=== PATIENT | male | born 1980 | race Caucasian/White ===

== ENCOUNTER 2016-11-02 12:19 | Observation (INO) | payer OTHER ==
[2016-11-02] MEDS ORDERED: Sodium Chloride 0.9% 1000 ML 1,000 ML IV SCH (12:30)
[2016-11-02] MEDS ORDERED: Sodium Chloride 0.9% 1000 ML 1,000 ML ONE (12:37)
[2016-11-02 12:44] LABS: BASOPHIL % 0.4 % (0.0-0.4); Eosinophil % 3.7 % (0.00-5.0); Granulocytes % 39.3 % (36.0-66.0); Lymphocytes % 45.1 % (24.0-44.0); Mean Cell Volume 88.7 fl (78-100); Mean Corpuscular Hemoglobin 30.1 pg (26-32); Monocytes % 11.5 % (0.0-12.0); Platelet Count 216 K/mm3 (150-450); Red Blood Count 5.22 M/mm3 (4.1-5.6); Red Cell Distribution Width 14.7 % (11.5-14.0)
--- NOTE | 2016-11-02 12:44 | XRAY ---
Indication: Chest pain and palpitations. Elevated blood pressure. Comparison: October 13, 2016 Portable apical lordotic chest again demonstrates normal heart, lungs, and bony thorax.
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
[2016-11-02 13:07] LABS: INR 0.89 (0.8-3.0)
[2016-11-02 13:09] LABS: ALBUMIN 3.7 g/dL (3.4-5.0); ALKALINE PHOSPHATASE 84 U/L (46-116); ANION GAP 14.2 MEQ/L (5-15); BILIRUBIN,TOTAL 0.5 mg/dL (0.2-1.0); BLOOD UREA NITROGEN 12 mg/dL (9-20); CHLORIDE 106 mEq/L (98-107); Carbon Dioxide 25.1 mEq/L (21-32); Glucose 168 MG/DL (70-110); MAGNESIUM 1.9 mg/dL (1.8-2.4); Potassium 3.9 mEq/L (3.5-5.1); SGOT/AST 35 U/L (15-37); SGPT/ALT 102 U/L (12-78); SODIUM 141 mEq/L (136-145); Total Protein 7.4 gm/dL (6.4-8.2)
[2016-11-02 13:10] LABS: PTT 36.1 SECONDS (24.1-36.1)
[2016-11-02] MEDS ORDERED: Lopressor 25MG Tab PO ONE (13:55)
[2016-11-02] MEDS ORDERED: Lopressor 25MG Tab ONE (14:02)
[2016-11-02] MEDS ORDERED: Zofran 4 MG/2 ML VIAL IV PRN (14:29)
[2016-11-02] MEDS ORDERED: MILK OF MAGNESIA 30 ML PO PRN (14:29)
[2016-11-02] MEDS ORDERED: Nitrostat 0.4 MG Tablet SL PRN (14:29)
[2016-11-02] MEDS ORDERED: MAALOX ES 30 ML UNIT DOSE PO PRN (14:29)
[2016-11-02] MEDS ORDERED: TYLENOL 325 MG PO PRN (14:29)
[2016-11-02] MEDS ORDERED: Senokot-S Tablet PO PRN (14:29)
[2016-11-02] MEDS ORDERED: PHARMACY DOSING REQUEST MC ONE (15:30)
[2016-11-02] MEDS ORDERED: DILTIAZEM 125 MG/25 ML IV SCH (15:45)
[2016-11-02] MEDS ORDERED: CARDIZEM DRIP 100 MG/100 ML D5W 100 ML IV SCH (15:45)
[2016-11-02 19:23] LABS: TROPONIN 0.019 ng/ml (0.000-0.056)
[2016-11-02] MEDS: Betapace 80 MG PO SCH ×2 (20:10→20:26)
[2016-11-02] MEDS ORDERED: Lopressor 25MG Tab PO SCH (22:00)
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
[2016-11-03] MEDS ORDERED: Ventolin Hfa MDI IH PRN (08:31)
[2016-11-03] MEDS ORDERED: PROVENTIL COMMON CANISTER IH PRN (08:32)
--- NOTE | 2016-11-03 08:45 | HP ---
HISTORY OF PRESENT ILLNESS: This is a 36 year-old patient of Dr. Carroll'marc who presented to the emergency department with chest pain and a high heart rate. The patient reports he was sitting at his computer when he developed chest pain and looked down at this shirt and could see his heart beating through his shirt. He then looked at his heart monitor on fitness band and it said his pulse was 130. He then called a friend to come over with a blood pressure machine and they checked his blood pressure and it was 202/165 so they decided to call the ambulance. He reports that they gave him two Nitro in the ambulance and this helped with his chest pain. He states two and a half weeks ago when he tried to donate plasma his heart rate was greater than 100 and so he was deferred for donation. He states he went to the emergency room after this and was told that he was dehydrated although he reports he drank 2 gallons of fluid the day before. The patient denies any chest pain now. He said he never had a history of coronary artery disease and never had to have a stress test on his heart. REVIEW OF SYSTEMS: He denies any nausea, vomiting. He has had a cough which he reports is normal for him. He denies any fever, no constipation. He reports he has watery diarrhea all the time and had colonoscopy that was normal. He denies any difficulty urinating and no headache. He reports his blood pressure was high in the clinic recently and Dr. Carroll was following up on this and considering starting blood pressure medicine. PAST MEDICAL HISTORY: Chronic obstructive pulmonary disease. PAST SURGICAL HISTORY: Bilateral carpal tunnel syndrome. [place] tooth extracted. MEDICATIONS: Please see the home medication list. ALLERGIES: VENOM OF HONEY BEE. SOCIAL HISTORY: He reports that he has smoked one and a half to two packs per day since he was [age] years old and that his last cigarette was 10/25/2016. He rarely drinks alcohol. He reports he last drank any alcohol three weeks ago. He denies any illicit drug use. He lives with his girlfriend and children. FAMILY HISTORY: His mother is and from congestive heart failure and kidney problems when she was 57 or 58 years old. His dad is living and his history is unknown. PHYSICAL EXAMINATION: VITAL SIGNS: Temperature current 97.4F, temperature max 97.8F, heart rate 67 to 86, respiratory rate 15 to 17, blood pressure 105 to 134 over 74 to 90. Oxygen saturation 92 to 96% on room air. GENERAL: The patient is a pleasant talkative man lying in bed in no acute distress. CVS: Irregularly irregular rhythm with a normal rate. No murmurs, gallops or rubs appreciated. CHEST: Distant breath sounds throughout that are equal. No crackles or wheezes. ABDOMEN: Soft, nontender, nondistended with normal bowel sounds. EXTREMITIES: No clubbing, cyanosis or edema. SKIN: Warm, dry and intact. LABORATORY DATA AND TESTS: CBC within normal limits. Glucose 168. Hemoglobin A1C 6.2. Serial troponins have been negative. ALT 102. TSH normal at 1.4. Urine tox negative. Chest x-ray was read as normal. ASSESSMENT AND PLAN: 1) ATRIAL FIBRILLATION WITH RAPID VENTRICULAR RESPONSE INITIALLY IN THE EMERGENCY DEPARTMENT. He was admitted to Med/Surg. After being started on metoprolol the nurses noted his heart rate went up to 130 and so he was transferred to the ICU to be placed on Cardizem drip. A medical technologist had already been consulted from the emergency room and was seeing the patient shortly after I saw him. It looks like he ordered Sotalol and stopped the Cardizem drip. I defer any anticoagulation to the medical technologist as he is seeing the patient. 2) CHRONIC OBSTRUCTIVE PULMONARY DISEASE: Continue with his home medication. 3) TOBACCO ABUSE: The patient had just quit smoking and the patient was congratulated on this.
[2016-11-03] MEDS: Ecotrin 325 MG PO SCH (09:04)
[2016-11-03] MEDS: Betapace 80 MG PO SCH ×2 (09:04→21:46)
[2016-11-03] MEDS ORDERED: Spiriva 18 Mcg/Cap Inhaler IH SCH (10:00)
--- NOTE | 2016-11-03 11:19 | ECHO ---
Transthoracic echocardiographic examination and color Doppler was done on 11/02/2016. INDICATION: Chest pain, atrial fibrillation. IMPRESSION: 1) NO REGIONAL WALL MOTION ABNORMALITY. ESTIMATED GLOBAL LEFT VENTRICULAR EJECTION FRACTION OF AROUND 50 TO 60%. 2) TRACE TRICUSPID REGURGITATION. RIGHT VENTRICULAR SYSTOLIC PRESSURE OF 26 MM OF MERCURY. The left ventricle is visualized and demonstrated adequate contractility of all the segments with and estimated global left ventricular ejection fraction between 50 and 60%. Left ventricular thickness is normal. The mitral valve is seen and this opens adequately. No significant mitral regurgitation is seen. Left atrium is normal. The aortic valve opens adequately. Right side chambers are normal. There is trace tricuspid regurgitation. Right ventricular systolic pressure of 26 mm of Mercury.
--- NOTE | 2016-11-03 14:53 | PCM.NOTE ---
Date and Time: 11/03/16 8707 Subjective Assessment: He reports that he has some chest pain overnight that lasted 20-30 minutes and then went away. He is feeling fine now. His nurse notes that he converted to sinus rhythm around 7:[address] Crook, code and test clerk, saw him last night and changed him to sotolol and stopped the cardizem drip. - Review of Systems Constitutional: No Symptoms Eyes: No Symptoms Ears, Nose, & Throat: No Symptoms Respiratory: No Symptoms Cardiac: No Symptoms Abdominal/Gastrointestinal: No Symptoms Genitourinary Symptoms: No Symptoms Musculoskeletal: No Symptoms Skin: No Symptoms Neurological: No Symptoms Objective Exam General Appearance: no apparent distress, No anxiety Neurologic Exam: alert, cooperative Skin Exam: normal color, warm, dry, No rash Respiratory Exam: normal breath sounds, lungs clear, No crackles/rales, No rhonchi, No wheezing Cardiovascular Exam: regular rate/rhythm, normal heart sounds, No friction rub, No gallop, No tachycardia Gastrointestinal/Abdomen Exam: soft, normal bowel sounds, No tenderness, No distention, No mass, No guarding Extremity Exam: other (no c/c/e) OBJECTIVE DATA Vital Signs: Vital Signs - 24 hr Temp Pulse Resp BP Pulse Ox 11/03/16 10:48 97.9 F 65 17 116/82 94 L 11/03/16 07:41 68 11/03/16 07:00 97.9 F 61 17 115/79 94 L 11/03/16 06:00 88 20 93/73 94 L 11/03/16 05:00 106 H 16 106/76 94 L 11/03/16 04:00 93 H 11 L 105/73 95 11/03/16 03:00 86 15 123/75 93 L 11/03/16 02:00 89 16 119/81 11/03/16 00:54 87 15 108/77 96 11/02/16 23:48 97.9 F 79 16 114/79 95 11/02/16 22:00 86 17 126/90 94 L 11/02/16 21:00 86 17 122/78 92 L 11/02/16 20:00 97.4 F 84 17 134/83 95 11/02/16 18:51 97.8 F 78 15 105/74 96 11/02/16 18:00 83 15 109/77 96 11/02/16 16:56 97.8 F 68 15 101/80 98 11/02/16 16:00 79 15 112/80 97 Pain Assessment - Last Documented Pain Scale Used FLACC Intake and Output: Intake & Output 11/01/16 11/02/16 11/03/16 11/04/16 06:59 06:59 06:59 06:59 Intake Total 1942 720 Output Total 2450 400 Balance -508 320 Weight 104.326 kg Lab Results: Lab Results-Last 24 Hours 11/02/16 11/02/16 11/02/16 Range/Units 15:45 18:39 21:39 Troponin I 0.019 0.019 0.018 (0.000-0.056) ng/ml Triglycerides (30-200) mg/dL Cholesterol (100-200) mg/dL LDL Cholesterol (5-99) mg/dL HDL Cholesterol (35-60) mg/dL Heart Disease Risk Ratio TSH 3rd Generation 1.401 (0.358-3.740) mIU/L 11/03/16 11/03/16 Range/Units 00:45 05:25 Troponin I 0.017 (0.000-0.056) ng/ml Triglycerides 402 H (30-200) mg/dL Cholesterol 208 H (100-200) mg/dL LDL Cholesterol 122 H (5-99) mg/dL HDL Cholesterol 27 L (35-60) mg/dL Heart Disease Risk Ratio 7.7 TSH 3rd Generation (0.358-3.740) mIU/L Radiology Exams: Impressions Echocardiogram Ultrasound 11/02/16 14:29 IMPRESSION: 1) NO REGIONAL WALL MOTION ABNORMALITY. ESTIMATED GLOBAL LEFT VENTRICULAR EJECTION FRACTION OF AROUND 50 TO 60%. 2) TRACE TRICUSPID REGURGITATION. RIGHT VENTRICULAR SYSTOLIC PRESSURE OF 26 MM OF MERCURY. Multi-Disciplinary Progress Notes: Multi-Disciplinary Progress Notes 11/03/16 09:08 Respiratory Note by Angela Mejia pt states he has spiriva At home but does not use. also rairly use alb mdi Initialized on 11/03/16 09:08 - END OF NOTE Assessment/Plan (1) Atrial fibrillation Current Visit: Yes Status: Acute Qualifiers: Atrial fibrillation type: paroxysmal Qualified Code(s): I48.0 - Paroxysmal atrial fibrillation Assessment & Plan: He has converted to sinus rhythm. Continue with close monitoring and continue sotalol per Dr. Crook. He has also placed him on an aspirin for anticogulation. Code(s): I48.91 - UNSPECIFIED ATRIAL FIBRILLATION (2) COPD (chronic obstructive pulmonary disease) Current Visit: Yes Status: Acute Assessment & Plan: Currently stable on his home medications. (3) Tobacco abuse Current Visit: Yes Status: Acute Assessment & Plan: He has recently quit smoking. Code(s): Z72.0 - TOBACCO USE (4) Hyperlipidemia Current Visit: Yes Status: Acute Assessment & Plan: Will plan to start a cholesterol medication to help control high triglycerides and high LDL. Code(s): E78.5 - HYPERLIPIDEMIA, UNSPECIFIED
[2016-11-03] MEDS ORDERED: ZOCOR 20MG PO SCH (22:00)
[2016-11-03] MEDS ORDERED: LIPITOR 40MG PO SCH (22:00)
[2016-11-04 05:42] LABS: BASOPHIL % 0.3 % (0.0-0.4); Lymphocytes % 34.9 % (24.0-44.0); Mean Cell Volume 88.7 fl (78-100); Mean Corpuscular Hemoglobin 29.9 pg (26-32); Mean Platelet Volume 9.1 fl (6-9.5); Monocytes % 9.8 % (0.0-12.0); Platelet Count 222 K/mm3 (150-450); Red Blood Count 5.21 M/mm3 (4.1-5.6); Red Cell Distribution Width 14.3 % (11.5-14.0)
[2016-11-04 06:02] LABS: ANION GAP 14.2 MEQ/L (5-15); BLOOD UREA NITROGEN 13 mg/dL (9-20); CHLORIDE 105 mEq/L (98-107); Carbon Dioxide 24.4 mEq/L (21-32); Glucose 204 MG/DL (70-110); SODIUM 140 mEq/L (136-145)
[2016-11-04] MEDS: Ecotrin 325 MG PO SCH (09:30)
[2016-11-04] MEDS: Betapace 80 MG PO SCH ×2 (09:31→19:07)
--- NOTE | 2016-11-04 10:07 | PCM.NOTE ---
Date and Time: 11/04/16 1003 Subjective Assessment: He reports he feels well. He denies any chest pain. He has been eating well. He voices understanding about trying to watch the sugars in his food as he does report that he eats a lot of rice and pasta at home and his blood glucose was high this AM although his residential blood glucose was normal. - Review of Systems Constitutional: No Symptoms Eyes: No Symptoms Ears, Nose, & Throat: No Symptoms Respiratory: No Symptoms Cardiac: No Symptoms Abdominal/Gastrointestinal: No Symptoms Genitourinary Symptoms: No Symptoms Musculoskeletal: No Symptoms Skin: No Symptoms Objective Exam General Appearance: no apparent distress, alert Neurologic Exam: alert, cooperative, normal mood/affect Skin Exam: normal color, warm, dry, No rash Respiratory Exam: normal breath sounds, lungs clear, No crackles/rales, No rhonchi, No wheezing Cardiovascular Exam: regular rate/rhythm, normal heart sounds, No murmur, No friction rub, No gallop Gastrointestinal/Abdomen Exam: soft, normal bowel sounds, No tenderness, No distention, No mass Extremity Exam: other (no c/c/e) OBJECTIVE DATA Vital Signs: Vital Signs - 24 hr Temp Pulse Resp BP Pulse Ox 11/04/16 07:36 98.0 F 59 L 19 132/81 97 11/04/16 03:49 97.8 F 72 18 137/79 96 11/04/16 00:00 98.2 F 78 17 139/71 96 11/03/16 18:47 97.8 F 74 18 120/67 95 11/03/16 15:00 63 13 106/80 95 11/03/16 10:48 97.9 F 65 17 116/82 94 L Pain Assessment - Last Documented Pain Scale Used 0-10 Pain Scale,FLACC Intake and Output: Intake & Output 11/02/16 11/03/16 11/04/16 11/05/16 06:59 06:59 06:59 06:59 Intake Total 1942 1500 Output Total 2450 1300 Balance -508 200 Weight 104.326 kg 106.594 kg Lab Results: Lab Results-Last 24 Hours 11/04/16 11/04/16 Range/Units 05:20 05:20 WBC 10.0 (4.0-10.5) K/mm3 RBC 5.21 (4.1-5.6) M/mm3 Hgb 15.6 (12.5-18.0) gm/dl Hct 46.2 (42-50) % MCV 88.7 (78-100) fl MCH 29.9 (26-32) pg MCHC 33.8 (32-36) g/dl RDW 14.3 H (11.5-14.0) % Plt Count 222 (150-450) K/mm3 MPV 9.1 (6-9.5) fl Gran % 51.0 (36.0-66.0) % Lymphocytes % 34.9 (24.0-44.0) % Monocytes % 9.8 (0.0-12.0) % Eosinophils % 4.0 (0.00-5.0) % Basophils % 0.3 (0.0-0.4) % Basophils # 0.03 (0-0.4) Sodium 140 (136-145) mEq/L Potassium 4.0 (3.5-5.1) mEq/L Chloride 105 (98-107) mEq/L Carbon Dioxide 24.4 (21-32) mEq/L Anion Gap 14.2 (5-15) MEQ/L BUN 13 (9-20) mg/dL Creatinine 0.96 (0.55-1.30) mg/dl Estimated GFR > 60 ML/MIN Glucose 204 H (70-110) MG/DL Calcium 8.8 (8.5-10.1) mg/dL Radiology Exams: Impressions Echocardiogram Ultrasound 11/02/16 14:29 IMPRESSION: 1) NO REGIONAL WALL MOTION ABNORMALITY. ESTIMATED GLOBAL LEFT VENTRICULAR EJECTION FRACTION OF AROUND 50 TO 60%. 2) TRACE TRICUSPID REGURGITATION. RIGHT VENTRICULAR SYSTOLIC PRESSURE OF 26 MM OF MERCURY. Assessment/Plan (1) Paroxysmal atrial fibrillation Current Visit: Yes Status: Acute Assessment & Plan: Continue sotalol per Dr. Crook's order. He will be the one to prescribe this when he is discharged. Continue aspirin 325 mg po daily for anticoagulation. Code(s): I48.0 - PAROXYSMAL ATRIAL FIBRILLATION (2) COPD (chronic obstructive pulmonary disease) Current Visit: Yes Status: Acute Assessment & Plan: Stable on home medications. (3) Tobacco abuse Current Visit: Yes Status: Acute Code(s): Z72.0 - TOBACCO USE (4) Hyperlipidemia Current Visit: Yes Status: Acute Assessment & Plan: Statin was started yesterday. Code(s): E78.5 - HYPERLIPIDEMIA, UNSPECIFIED (5) Hyperglycemia Current Visit: Yes Status: Acute Assessment & Plan: Discussed diet changes and he can follow up with Dr. Carroll. Hgb A1C was normal. Code(s): R73.9 - HYPERGLYCEMIA, UNSPECIFIED
[2016-11-04 15:55] VITALS: BP 124/69; PULSE 62; O2SAT 95
== END 2016-11-04 19:15 | disposition home or self-care (01) ==
LOC: ED 12:19 → MED SURG 14:27 → ICU 15:37 → MED SURG 11-03 17:11
PROVIDERS: ADMIT Family Medicine; ATTEND Family Medicine
DX: I48.0 Paroxysmal atrial fibrillation (principal); J44.1 Chronic obstructive pulmonary disease with (acute) exacerbation; E78.5 Hyperlipidemia, unspecified; R73.9 Hyperglycemia, unspecified; Z72.0 Tobacco use
CPT/HCPCS: 36000; 36415; 71010; 80048; 80053; 80061; 80307; 83036; 83721; 83735; 84443; 84484; 85025; 85610; 85730; 93005; 93041; 93268; 93306; 96360; 99284; G0378

== ENCOUNTER 2016-12-13 10:12 | Day surgery (SDC) | payer OTHER ==
--- NOTE | 2016-12-11 14:27 | HP ---
HISTORY OF PRESENT ILLNESS: The patient is a 36-year-old, for 6 months has had some drainage, pain at times, pilonidal area. There is some induration, some godinez, felt he had infected pilonidal cyst disease. PAST MEDICAL HISTORY: Heart disease, COPD. MEDICATIONS: Spiriva, Proventil. PAST SURGICAL HISTORY: Carpal tunnel and tooth extracted in the past. FAMILY HISTORY: Heart disease, diabetes. ALLERGIES: No known drug allergies SOCIAL HISTORY: He quit smoking 2012. Denies alcohol abuse. REVIEW OF SYSTEMS: Ten systems reviewed, pertinent for the admission assessment. No chest pains or palpitations. Other systems negative or noncontributory as noted above, or per pre-admission questionnaire. PHYSICAL EXAMINATION: GENERAL: No acute distress. HEENT: Sclerae nonicteric. NECK: No JVD. CHEST: Normal excursions, Nonlabored breathing. CARDIOVASCULAR: Regular rate and rhythm. ABDOMEN: Soft. No peritoneal signs. EXTREMITIES: No edema. NEUROLOGICAL: Alert, moving extremities grossly symmetrically, no gross motor deficits noted. In the pilonidal area there are godinez, some induration on either side consistent with infected pilonidal cyst disease. IMPRESSION: Infected pilonidal cyst disease, felt he would benefit from wide excision, possible packing, possible flap pending operative findings. 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 5% risk of nonhealing, 5% risk of slow healing, but 90% healing in 8 to 12 weeks if requires packing. He understands that there is at least a 20% risk of re-occurrence down the road, the importance of keeping all hair away from wound, and if left open and packing, to pack to the bottom of the incision at least on a daily basis, as well as minimizing aggressive activity and avoid any prolonged sitting, laying, or pressure on the wound postoperatively. He understands, agrees to the plan of procedure. We will proceed with wide excision pilonidal cyst, also packing, possible flap as an outpatient.
[~2016-12-13 10:12] MED LIST: BICITRA 30 ML CUP PO ONE; CEFAZOLIN 2 GM-D5W BAG IV ONE; DIPRIVAN 200 MG/20 ML IV ONE; Decadron 4 MG INJ IV ONE; Lactated Ringers 1,000 ML IV ONE; Pepcid 20 MG VIAL IV ONE; Quelicin Fliptop 200 MG/10 ML IJ ONE; SUBLIMAZE 100 MCG/2 ML IV ONE; Sensorcaine 0.25% 10 ML ONE; TORAdol 30 mg Injection IJ ONE; Zemuron 100 MG/10 ML IJ ONE; Zofran 4 MG/2 ML VIAL IV ONE
[2016-12-13] MEDS ORDERED: Lactated Ringers 1,000 ML IV ONE (10:16)
[2016-12-13] MEDS ORDERED: Pepcid 20 MG VIAL IV ONE (10:16)
[2016-12-13] MEDS ORDERED: BICITRA 30 ML CUP ONE (10:16)
[2016-12-13] MEDS ORDERED: Lactated Ringers 1,000 ML IV SCH (10:30)
[2016-12-13 11:24] LABS: ANION GAP 13.8 MEQ/L (5-15); BLOOD UREA NITROGEN 12 mg/dL (9-20); CHLORIDE 107 mEq/L (98-107); Carbon Dioxide 24.1 mEq/L (21-32); Glucose 140 MG/DL (70-110); Potassium 3.8 mEq/L (3.5-5.1); SODIUM 141 mEq/L (136-145)
[2016-12-13 15:18] VITALS: O2SAT 98
[2016-12-13 15:22] VITALS: BP 120/57; PULSE 18
--- NOTE | 2016-12-14 09:10 | OP ---
SURGERY DATE/TIME: 12/13/2016 1213 PREOPERATIVE DIAGNOSIS: Infected pilonidal cyst disease. POSTOPERATIVE DIAGNOSIS: Infected pilonidal cyst disease. PROCEDURE: Wide excision infected pilonidal cyst disease down to viable tissue. SURGEON: Dr. Richard Boone. ANESTHESIA: General. ESTIMATED BLOOD LOSS: Minimal. INDICATIONS: As noted above. Risks and benefits explained in detail and not limited to and consent obtained. The details of the planned procedure had been discussed preoperatively and that would very likely end up packing the wound. DESCRIPTION OF PROCEDURE AND FINDINGS: General anesthesia was induced. He was placed in the prone position per anesthesia and OR staff. The pilonidal area prepped and draped in usual sterile fashion. He had indurated inflamed area off to the left. It had pits in the midline. Dissecting out around these staying close to the edge dissection was carried. This required going down to the underlying fascia the sacral fascia and out towards the subcu around these areas. It was felt that there was too much inflammation and infection to warrant safe closure. It was felt it would be safer to go ahead and pack this or let this heal by secondary intent given his body habitus and wound. Good hemostasis noted. The wound is irrigated out. It was packed in normal saline wet to dry. The patient tolerated the procedure well. There were no immediate complications. Findings were discussed with the friend out in the waiting area and holding area along with the patient. He was returned back to outpatient area.
== END 2016-12-13 14:25 | disposition home or self-care (01) ==
LOC: SDC 10:12
PROVIDERS: ATTEND Surgery
PROC: 0JB90ZZ Excision of Buttock Subcutaneous Tissue and Fascia, Open Approach (ICD-10-PCS; principal; 2016-12-13)
DX: L05.91 Pilonidal cyst without abscess (principal); J44.9 Chronic obstructive pulmonary disease, unspecified; I51.9 Heart disease, unspecified; Z79.899 Other long term (current) drug therapy
CPT/HCPCS: 00300; 36415; 80048; 88304; J0330; J0690; J1100; J1885; J2405; J2704; J3010

== ENCOUNTER 2017-05-12 18:35 | Emergency (ER) | payer OTHER, SELFPAY ==
[2017-05-12] MEDS ORDERED: MOTRIN 600 MG PO ONE (18:42)
--- NOTE | 2017-05-12 18:48 | ERPHSYRPT ---
- History of Present Illness Time Seen by Provider: 05/12/17 18:36 Source: patient Exam Limitations: no limitations Physician History: patient with hx of cough x 3 days; productive yellow sputum; hx of copd and bronchitis; no fever; pain left chest only when coughs; chronic loose stools since childhood; no sore throat; no hemoptosis or sob; no leg pain; no travel; around one person with bronchitis; occasional N& V associated with coughing paroxysm quit smoking oct 2016 Timing/Duration: today (worse), yesterday (onset pain with cough), day(s) (3 onset), intermittent, gradual onset, worse Cough Quality/Degree: moderate, productive cough, sputum (yellow) Possible Cause: occasional episodes Modifying Factors: Improves With: coughing, deep breath Associated Symptoms: chest pain/soreness (left when coughs anterior), cough International travel in last 2 weeks: No Allergies/Adverse Reactions: venom-honey bee Allergy (Verified 05/12/17 18:44) Home Medications: Albuterol Sulfate [Albuterol Sulfate Hfa] 8.5 gm IH Q4H PRN PRN 10/13/16 [ History] Tiotropium [place] Inhaler [Spiriva 18 Mcg/Cap Inhaler] 1 ea IH DAILY [History] Rivaroxaban 10 mg Tablet [Xarelto 10 mg Tablet] 10 mg PO DAILY 12/13/16 [ History] Metformin HCl 500 mg [Glucophage 500 MG] 500 mg BID 05/12/17 [History] Hx Tetanus, Diphtheria Vaccination/Date Given: Yes Hx Influenza Vaccination/Date Given: Yes Hx Pneumococcal Vaccination/Date Given: No - Review of Systems Constitutional: No Symptoms Eyes: No Symptoms Ears, Nose, & Throat: No Symptoms Respiratory: Cough, No Dyspnea, No Wheezing Cardiac: Chest Pain (anterior left high when coughs), No Edema, No Syncope Abdominal/Gastrointestinal: Nausea (with coughing paroxysms), Vomiting (with coughing paroxysms), Diarrhea (chronic), No Abdominal Pain Genitourinary Symptoms: No Symptoms Musculoskeletal: No Symptoms Skin: No Symptoms Neurological: No Symptoms Psychological: No Symptoms Endocrine: No Symptoms Hematologic/Lymphatic: No Symptoms Immunological/Allergic: No Symptoms - Past Medical History Pertinent Past Medical History: Yes Neurological History: No Pertinent History ENT History: No Pertinent History Cardiac History: Arrhythmia, High Cholesterol, Hypertension, Peripheral Vascular Disease Respiratory History: COPD Endocrine Medical History: Diabetes Type II Musculoskeletal History: No Pertinent History GI Medical History: No Pertinent History History: No Pertinent History Psycho-Social History: Depression Male Reproductive Disorders: No Pertinent History Other Medical History: pilonidal cyst - Past Surgical History Past Surgical History: Yes Neuro Surgical History: No Pertinent History Cardiac: No Pertinent History Respiratory: No Pertinent History Gastrointestinal: No Pertinent History Genitourinary: No Pertinent History Musculoskeletal: Other Male Surgical History: No Pertinent History Other Surgical History: pt states he has had carpal tunnel surgery and tooth extractions.pilonidal cyst removed - Social History Smoking Status: Former smoker How long have you smoked: 29 Exposure to second hand smoke: No Alcohol Use: Socially Drug Use: none Patient Lives Alone: No Significant Family History: diabetes, hypertension - Nursing Vital Signs Nursing Vital Signs: Initial Vital Signs Temperature 98.0 F 05/12/17 18:38 Pulse Rate 100 H 05/12/17 18:38 Respiratory Rate 18 05/12/17 18:38 Blood Pressure 160/90 05/12/17 18:38 O2 Sat by Pulse Oximetry 96 05/12/17 18:38 Pain Scale Pain Intensity 0 - Physical Exam General Appearance: mild distress, alert Eye Exam: PERRL/EOMI, eyes nml inspection, No photophobia Ears, Nose, Throat Exam: normal ENT inspection, TMs normal, pharynx normal, moist mucous membranes, other (thick pnd) Neck Exam: normal inspection, non-tender, supple, full range of motion, No meningismus, No JVD Respiratory Exam: chest tenderness (anterior left high), airway intact, diminished breath sounds, No normal breath sounds (scattered coarse bronchovesicular BS throughout), No respiratory distress, No crackles/rales, No rhonchi, No wheezing, No pleural rub Cardiovascular Exam: regular rate/rhythm, normal heart sounds, normal peripheral pulses, tachycardia (100), capillary refill 2-3 sec, No murmur, No friction rub Gastrointestinal/Abdomen Exam: soft, normal bowel sounds, No tenderness, No guarding, No rebound, No organomegaly Rectal Exam: deferred Back Exam: normal inspection, normal range of motion, No CVA tenderness, No vertebral tenderness, No rash Extremity Exam: normal inspection, normal range of motion, No chetna's sign, No pedal edema Neurologic Exam: alert, oriented x 3, cooperative, 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 as tested, normal mood/affect, nml cerebellar function, nml station & gait Skin Exam: normal color, warm, dry, No rash, No petechiae, No cyanosis SpO2 Interpretation: normal SpO2: 96 Oxygen Delivery: Room Air - Course Nursing assessment & vital signs reviewed: Yes - Radiology Exams Chest X-ray Interpretation: Interpreted by me, Negative, No Pneumonia, No Pneumothorax , Nml Heart Size, No Infiltrates Ordered Tests: Active Orders 24 hr Category Date Time Status ACCUCHECK [Accucheck] STAT Care 05/12/17 18:48 Active Pulse Oximetry (ED) STAT Care 05/12/17 18:41 Active Re-Check Vital Signs STAT Care 05/12/17 18:41 Active CHEST 1 VIEW (PORTABLE) Stat Exams 05/12/17 18:42 Taken Medication Summary Discontinued Medications Generic Name Dose Route Start Last Admin Trade Name Freq PRN Reason Stop Dose Admin Ibuprofen 600 mg 05/12/17 18:42 05/12/17 18:50 Motrin 600 Mg PO 05/12/17 18:43 600 mg STAT ONE Administration Ibuprofen Confirm 05/12/17 18:49 Motrin 600 Mg Administered 05/12/17 18:50 Dose 600 mg .ROUTE .STK-MED ONE - Progress Progress: re-examined (after xr and meds) Air Movement: good Progress Note: 05/12/17 18:53 VS ok; Sats ok; will get cxr and give meds and recheck 05/12/17 19:03 rechecked; good pulse ox; discussed findings;treatment plan and instructions given 05/12/17 19:04 accucheck ok Blood Culture(s) Obtained: No Counseled pt/family regarding: diagnosis, need for follow-up, rad results - Departure Time of Disposition: 19:03 Departure Disposition: Home Clinical Impression: Hyperglycemia, COPD (chronic obstructive pulmonary disease), Acute bronchitis, Acute sinusitis Condition: Stable Critical Care Time: No Instructions: Chronic Obstructive Pulmonary Disease, Cough -- Adult Additional Instructions: clear fluid hydration; vaporizer; follow up lmd Follow-up with family doctor as directed. Call for appointment. Return if any problems. If you smoke please stop. Call or follow up with your family doctor for assistance if you need it to stop. Please wear your seatbelt when driving. Have a nice day. Thank you for allowing us to participate in your care today. :o) Dr Adrian Pace Prescriptions: Guaifenesin/Dextromethorphan [Robitussin Cough-Chest Dm Liq] 10 ml PO Q8H PRN PRN #8 oz PRN Reason: Cough Sulfamethoxazole/Trimethoprim [Bactrim Ds Tablet] 1 each PO BID #20 tablet
[2017-05-12] MEDS ORDERED: MOTRIN 600 MG ONE (18:49)
[2017-05-12 19:08] VITALS: O2SAT 96
[2017-05-12 19:18] VITALS: BP 140/90; PULSE 82
--- NOTE | 2017-05-13 08:28 | XRAY ---
Indication: Productive cough. Comparison: November 02, 2016. Portable chest hyperinflated and clear. Heart and mediastinal structures within normal limits. Bony thorax intact. Impression: Nonacute hyperinflated chest.
== END 2017-05-12 19:18 | disposition home or self-care (01) ==
LOC: ED 18:35
DX: R73.9 Hyperglycemia, unspecified (principal); J44.9 Chronic obstructive pulmonary disease, unspecified; J20.9 Acute bronchitis, unspecified; J01.90 Acute sinusitis, unspecified; R07.89 Other chest pain; R05 Cough
CPT/HCPCS: 71010; 82962; 99281; 99282; A9270-GY

== ENCOUNTER 2017-06-30 22:39 | Emergency (ER) | payer OTHER, SELFPAY ==
[2017-06-30] MEDS ORDERED: NORCO 5/325 MG PO ONE (22:54)
[2017-06-30] MEDS ORDERED: BACTRIM DS TABLET PO ONE ×2 (22:54→22:57)
[2017-06-30] MEDS ORDERED: NORCO 5/325 MG ONE (22:57)
--- NOTE | 2017-06-30 23:02 | ERPHSYRPT ---
- History of Present Illness Time Seen by Provider: 06/30/17 22:55 Source: patient Exam Limitations: no limitations Patient Subjective Stated Complaint: middle finger swelling since tuesday.. increasing today. no drainage. sates tried to pop it open but only got blood. Triage Nursing Assessment: noted swelling taround nail of middle finger of left hand.. + radial pulse denies injury. no drainage noted Physician History: This is a 37-year-old white male he arrives with complaint of swelling to his left third finger since 6 days. He states that he noticed swelling superior to the left nailbed on the third finger. Patient tried to drain the area himself by sticking a cauterized needle into the area but got no return Past medical history includes arrhythmia, hypercholesterolemia, high blood pressure,, COPD, diabetes, depression, pilonidal cyst Past surgical history includes carpal tunnel into the extraction. Patient does states he is on blood thinners Occurred: days ago (6 days) Quality: constant Severity of Pain-Max: mild Severity of Pain-Current: mild Extremities Pain Location: 3rd finger: left Modifying Factors: Improves With: nothing Associated Symptoms: none Allergies/Adverse Reactions: venom-honey bee Allergy (Verified 05/12/17 18:44) Home Medications: Albuterol Sulfate [Albuterol Sulfate Hfa] 8.5 gm IH Q4H PRN PRN 10/13/16 [ History] Tiotropium [place] Inhaler [Spiriva 18 Mcg/Cap Inhaler] 1 ea IH DAILY [History] Rivaroxaban 10 mg Tablet [Xarelto 10 mg Tablet] 10 mg PO DAILY 12/13/16 [ History] Metformin HCl 500 mg [Glucophage 500 MG] 500 mg BID 05/12/17 [History] Hx Tetanus, Diphtheria Vaccination/Date Given: Yes Hx Influenza Vaccination/Date Given: Yes Hx Pneumococcal Vaccination/Date Given: No Immunizations Up to Date: Yes - Review of Systems Constitutional: No Fever, No Chills Eyes: No Symptoms Ears, Nose, & Throat: No Symptoms Respiratory: No Cough, No Dyspnea Cardiac: No Chest Pain, No Edema, No Syncope Abdominal/Gastrointestinal: No Abdominal Pain, No Nausea, No Vomiting, No Diarrhea Genitourinary Symptoms: No Dysuria Musculoskeletal: Other (swelling and pain above the left third nail bed) Skin: Other (swelling above the left third nail bed) Neurological: No Dizziness, No Focal Weakness, No Sensory Changes Psychological: No Symptoms Endocrine: No Symptoms All Other Systems: Reviewed and Negative - Past Medical History Pertinent Past Medical History: Yes Neurological History: No Pertinent History ENT History: No Pertinent History Cardiac History: Arrhythmia, High Cholesterol, Hypertension, Peripheral Vascular Disease Respiratory History: COPD Endocrine Medical History: Diabetes Type II Musculoskeletal History: No Pertinent History GI Medical History: No Pertinent History History: No Pertinent History Psycho-Social History: Depression Male Reproductive Disorders: No Pertinent History Other Medical History: pilonidal cyst - Past Surgical History Past Surgical History: Yes Neuro Surgical History: No Pertinent History Cardiac: No Pertinent History Respiratory: No Pertinent History Gastrointestinal: No Pertinent History Genitourinary: No Pertinent History Musculoskeletal: Other Male Surgical History: No Pertinent History Other Surgical History: pt states he has had carpal tunnel surgery and tooth extractions.pilonidal cyst removed - Social History Smoking Status: Former smoker How long have you smoked: 29 Exposure to second hand smoke: No Alcohol Use: Socially Drug Use: none Patient Lives Alone: No Significant Family History: diabetes, hypertension - Nursing Vital Signs Nursing Vital Signs: Initial Vital Signs Temperature 98.1 F 06/30/17 22:42 Pulse Rate 84 06/30/17 22:42 Respiratory Rate 16 06/30/17 22:42 O2 Sat by Pulse Oximetry 98 06/30/17 22:42 Pain Scale Pain Intensity 7 - Physical Exam General Appearance: alert Eyes, Ears, Nose, Throat Exam: moist mucous membranes Neck Exam: non-tender, supple Cardiovascular/Respiratory Exam: chest non-tender, normal breath sounds, regular rate/rhythm, no respiratory distress Abdominal Exam: non-tender, No guarding Back Exam: normal inspection, No vertebral tenderness Shoulder Exam: normal inspection, non-tender, no evidence of injury, normal ROM Elbow/Forearm Exam: normal inspection, non-tender, no evidence of injury, normal ROM Wrist Exam: normal inspection, non-tender, no evidence of injury, normal ROM Hand Exam: No normal inspection (Full range of motion to both hands full range of motion to both fingers, left third finger with tenderness with paipation, area is not hot or erythematous) Neuro/Tendon Exam: normal sensation, normal motor functions Mental Status Exam: alert Skin Exam: other (edema and tenderness superior to left third nail bed, area is not erythematous or hot) SpO2 Interpretation: normal SpO2: 98 Oxygen Delivery: Room Air - Course Nursing assessment & vital signs reviewed: Yes Ordered Tests: Medication Summary Discontinued Medications Generic Name Dose Route Start Last Admin Trade Name Claudio PRN Reason Stop Dose Admin Hydrocodone Bitart/Acetaminophen 1 tab 06/30/17 22:54 06/30/17 23:01 [place] 5/325 Mg PO 06/30/17 22:55 1 tab SENT HOME W/ PATIENT ONE Administration Hydrocodone Bitart/Acetaminophen Confirm 06/30/17 22:57 [place] 5/325 Mg Administered 06/30/17 22:58 Dose 1 tab .ROUTE .STK-MED ONE Trimethoprim/Sulfamethoxazole 1 tab 06/30/17 22:54 06/30/17 23:00 Bactrim Ds Tablet PO 06/30/17 22:55 1 tab STAT ONE Administration Trimethoprim/Sulfamethoxazole Confirm 06/30/17 22:57 Bactrim Ds Tablet Administered 06/30/17 22:58 Dose 1 tab PO .STK-MED ONE - Progress Progress: improved Progress Note: 06/30/17 23:00 This is a 37-year-old white male with history of diabetes and arrhythmia who is on xaralto, He arrives with complaint of swelling and pain superior to his left third nail bed. He states he has had this for approximately 3 days he states he actually healed up a needle and tried to stick this into the area without drainage. On physical examination patient has edema and tenderness superior to the left third nail bed there is no erythema area is not hot. It appears the patient has a possible paronychia to the area, however the area is not hot or draining. The patient is up-to-date with his tetanus. Because of this patient's history of diabetes as well as being on anticoagulants. I will place this patient on Bactrim DS one orally twice a day for 10 days. Will write for pain medication. Will have patient follow-up with his family doctor. Will not attempt to lacerate the area at this time the area is not hot or erythematous he has already stuck a needle in the area. Patient will be recommended to follow-up either with his surgeon Dr. Paolo Peña or, his family doctor he is to call tomorrow morning 06/30/17 23:05 06/30/17 23:12 - Departure Time of Disposition: 23:02 Departure Disposition: Home Clinical Impression: Paronychia of finger of left hand Condition: Fair Critical Care Time: No Referrals: DENY LEZAMA [Primary Care Provider] - Additional Instructions: Return home. Bactrim DS one orally twice a day for 10 days. [place] one orally every 4-6 hours as needed for pain #6. Follow-up with your family doctor or Dr. Cruz/ [place] call tomorrow morning. Return for acute distress or for severe symptoms Prescriptions: Hydrocodone Bit/Acetaminophen [[place] 5/325Mg] 1 tab PO Q4-6HPRN PRN #6 tablet PRN Reason: Pain Smz/Tmp Ds Tablet [Bactrim Ds Tablet] 1 tab PO BID #20 tablet
[2017-06-30 23:17] VITALS: BP 158/94; PULSE 79; O2SAT 95
== END 2017-06-30 23:16 | disposition home or self-care (01) ==
LOC: ED 22:39
DX: L03.012 Cellulitis of left finger (principal)
CPT/HCPCS: 99283; A9270-GY

== ENCOUNTER 2017-07-24 03:50 | Emergency (ER) | payer OTHER ==
[2017-07-24] MEDS ORDERED: MOTRIN 400 MG PO ONE (04:08)
[2017-07-24] MEDS ORDERED: MOTRIN 400 MG ONE (04:11)
--- NOTE | 2017-07-24 04:22 | ERPHSYRPT ---
- History of Present Illness Time Seen by Provider: 07/24/17 04:01 Source: patient Patient Subjective Stated Complaint: pt states he fell while running and went down on his rt knee yesterday. Triage Nursing Assessment: pt alert and oriented, asnwers questions approp. respirations nonlabored with lungs cta. pt ambultory with limping gait noted. skin warm andd ry. tenderness and swelling noted to rt knee. no bruising or open areas to rt knee Physician History: CC: right knee pain Hx: 37 y/o patient of Dr Carroll on xarelto for afib. He was running yesterday and fell. He injured right knee. He has pain and swelling. No fever, chills, redness, nor warmth. He has some hydrocodone left over at home but did not use it. Drove self here. No prior knee injury or surgery. No other injuries. Lower Extremities Pain: knee: right Allergies/Adverse Reactions: venom-honey bee Allergy (Verified 07/24/17 04:14) Home Medications: Albuterol Sulfate [Albuterol Sulfate Hfa] 8.5 gm IH Q4H PRN PRN 10/13/16 [ History] Tiotropium [place] Inhaler [Spiriva 18 Mcg/Cap Inhaler] 1 ea IH DAILY [History] Rivaroxaban 10 mg Tablet [Xarelto 10 mg Tablet] 10 mg PO DAILY 12/13/16 [ History] Metformin HCl 500 mg [Glucophage 500 MG] 500 mg BID 05/12/17 [History] Hx Tetanus, Diphtheria Vaccination/Date Given: Yes Hx Influenza Vaccination/Date Given: No Hx Pneumococcal Vaccination/Date Given: No Immunizations Up to Date: Yes - Review of Systems Constitutional: No Fever Musculoskeletal: Injury (right knee), No Back Pain, No Neck Pain Neurological: No Focal Weakness, No Parasthesia - Past Medical History Pertinent Past Medical History: Yes Neurological History: No Pertinent History ENT History: No Pertinent History Cardiac History: Arrhythmia, High Cholesterol, Hypertension, Peripheral Vascular Disease Respiratory History: COPD Endocrine Medical History: Diabetes Type II Musculoskeletal History: No Pertinent History GI Medical History: No Pertinent History History: No Pertinent History Psycho-Social History: Depression Male Reproductive Disorders: No Pertinent History Other Medical History: pilonidal cyst - Past Surgical History Past Surgical History: Yes Neuro Surgical History: No Pertinent History Cardiac: No Pertinent History Respiratory: No Pertinent History Gastrointestinal: No Pertinent History Genitourinary: No Pertinent History Musculoskeletal: Other Male Surgical History: No Pertinent History - Social History Smoking Status: Former smoker How long have you smoked: 29 Exposure to second hand smoke: No Alcohol Use: Socially Drug Use: none Patient Lives Alone: No Significant Family History: diabetes, hypertension - Nursing Vital Signs Nursing Vital Signs: Initial Vital Signs Temperature 97.8 F 07/24/17 03:51 Pulse Rate 76 07/24/17 03:51 Respiratory Rate 18 07/24/17 03:51 Blood Pressure 141/88 07/24/17 03:51 O2 Sat by Pulse Oximetry 98 07/24/17 03:51 Pain Scale Pain Intensity 2 - Physical Exam General Appearance: alert Eyes, Ears, Nose, Throat Exam: moist mucous membranes Neck Exam: supple Cardiovascular/Respiratory Exam: regular rate/rhythm Hips Exam: right: non-tender, normal inspection Knees Exam: right knee: bone tenderness, joint effusion, soft tissue tenderness Ankle Exam: right ankle: non-tender, normal inspection Foot Exam: right foot: non-tender, normal inspection Neuro/Tendon Exam: normal sensation, normal motor functions Mental Status Exam: alert, oriented x 3, cooperative Skin Exam: warm, dry SpO2 Interpretation: normal SpO2: 98 Oxygen Delivery: Room Air - Course Nursing assessment & vital signs reviewed: Yes - Radiology Exams right knee X-ray Interpretation: Interpreted by me, No Fracture, Nml Alignment Ordered Tests: Active Orders 24 hr Category Date Time Status Jose Guadalupe [facility] 07/24/17 04:07 Active Cold Application STAT Care 07/24/17 04:07 Active Crutches STAT Care 07/24/17 04:33 Active KNEE (3 VIEWS) Stat Exams 07/24/17 04:07 Ordered Medication Summary Discontinued Medications Generic Name Dose Route Start Last Admin Trade Name Claudio PRN Reason Stop Dose Admin Ibuprofen 400 mg 07/24/17 04:08 07/24/17 04:11 Motrin 400 Mg PO 07/24/17 04:09 400 mg STAT ONE Administration Ibuprofen Confirm 07/24/17 04:11 Motrin 400 Mg Administered 07/24/17 04:12 Dose 400 mg .ROUTE .STK-MED ONE - Progress Progress Note: 07/24/17 04:34 He likely has sprain of the knee with some hemarthrosis as he is on NOAC. Jose Guadalupe wrap, crutches, ice. He has hydrocodone at home to use for pain. Advised follow up. Counseled pt/family regarding: diagnosis, need for follow-up, rad results - Departure Time of Disposition: 04:35 Departure Disposition: Home Clinical Impression: Right knee sprain Qualifiers: Encounter type: initial encounter Involved ligament of knee: unspecified ligament Qualified Code(s): S83.91XA - Sprain of unspecified site of right knee , initial encounter Condition: Stable Critical Care Time: No Referrals: DENY CARROLL [Primary Care Provider] - Instructions: Knee Sprain, Use Crutches Additional Instructions: CRUTCHES 1. Hold your head up and keep your back straight to help keep your balance. 2. When standing, the top of the crutches should fit 2-3 inches below your armpits. 3. Put your weight on the handgrip with your hands; never put any pressure on your armpits. 4. Go slow until you get your balance and become accustomed to crutch walking. 5. Place each crutch tip 4-6 inches to the front and side of each foot. Move both crutch tips forward on each side 12-15 inches from the tip of your injured leg, while simultaneously moving your injured leg 12-15 inches. Move your uninjured leg forward to the level of the crutch tips. SPRAINS/STRAINS/CONTUSIONS 1. Rest the affected area as much as possible for the next few days. 2. Apply ice to the affected area for 20-30 minutes at a time, several times a day. 3. If you receive an elastic wrap, wear it only while awake for comfort and support. Re-wrap the elastic wrap if it feels too tight or too loose. 4. If swelling is present, elevate the affected part above the level of the heart for at least 2 to 3 days. 5. Use splints, slings, or crutches as instructed. 6. Watch for severe swelling, coldness, numbness, and discoloration of the fingers and toes. See your family physician or return to the emergency department if any of these are noted. Use your hydrocodone as already prescribed for pain. Follow up with Dr Carroll this week.
[2017-07-24 04:55] VITALS: BP 136/72; PULSE 70; O2SAT 96
--- NOTE | 2017-07-24 07:35 | XRAY ---
Indication: Pain following fall. Comparison: None 3 views of the right knee demonstrates minimal anterior medial soft tissue swelling. No other bony, articular, or soft tissue abnormalities.
== END 2017-07-24 04:55 | disposition home or self-care (01) ==
LOC: ED 03:50
DX: S83.91XA Sprain of unspecified site of right knee, initial encounter (principal); W18.39XA Other fall on same level, initial encounter; Y93.02 Activity, running; Z79.01 Long term (current) use of anticoagulants; E11.9 Type 2 diabetes mellitus without complications; Z79.84 Long term (current) use of oral hypoglycemic drugs; E78.00 Pure hypercholesterolemia, unspecified; I10 Essential (primary) hypertension; I73.89 Other specified peripheral vascular diseases; J44.9 Chronic obstructive pulmonary disease, unspecified
CPT/HCPCS: 73562; 99283; A9270-GY

== ENCOUNTER 2018-04-29 16:56 | Emergency (ER) | payer OTHER ==
[2018-04-29 17:30] VITALS: BP 132/102; PULSE 104; O2SAT 100
[2018-04-29] MEDS ORDERED: CORTISPORIN EAR DROPS Solution 1OML OT ONE (17:43)
--- NOTE | 2018-04-29 17:48 | ERPHSYRPT ---
- History of Present Illness Time Seen by Provider: 04/29/18 17:22 Source: patient Exam Limitations: no limitations Patient Subjective Stated Complaint: STATES FINE RED RASH OVER ENTIRE BODY FOR TWO DAYS. ALSO HAVING RIGHT EAR PAIN SINCE YESTERDAY Triage Nursing Assessment: FINE RED RASH OVER ENTIRE BODY. RIGHT EARACHE. NO DRAINAGE NOTED. Physician History: Pt came with his 8 years old daughter, c/o similar rash on his left forearm and right anterior thigh over the past 2-3 days He is c/o mild itching, did not take any medications, did not use externals, denies severe pain, headaches, nausea, vomiting, chest pain, cough or SOB. Timing/Duration: day(s) (2) Quality: itchy Severity: moderate Location: extremities Possible Causes: no cause identified Modifying Factors: Improves With: other (nothing) Allergies/Adverse Reactions: venom-honey bee Allergy (Verified 04/29/18 17:30) Home Medications: Albuterol Sulfate [Albuterol Sulfate Hfa] 8.5 gm IH Q4H PRN PRN 10/13/16 [ History] Tiotropium [place] Inhaler [Spiriva 18 Mcg/Cap Inhaler] 1 ea IH DAILY [History] Rivaroxaban 10 mg Tablet [Xarelto 10 mg Tablet] 10 mg PO DAILY 12/13/16 [ History] Metformin HCl 500 mg [Glucophage 500 MG] 500 mg BID 05/12/17 [History] Hx Tetanus, Diphtheria Vaccination/Date Given: Yes Hx Influenza Vaccination/Date Given: No Hx Pneumococcal Vaccination/Date Given: No - Review of Systems Constitutional: No Symptoms Skin: Pruritis, Rash All Other Systems: Reviewed and Negative - Past Medical History Pertinent Past Medical History: Yes Neurological History: No Pertinent History ENT History: No Pertinent History Cardiac History: Arrhythmia, High Cholesterol, Hypertension, Peripheral Vascular Disease Respiratory History: COPD Endocrine Medical History: Diabetes Type II Musculoskeletal History: No Pertinent History GI Medical History: No Pertinent History History: No Pertinent History Psycho-Social History: Depression Male Reproductive Disorders: No Pertinent History Other Medical History: pilonidal cyst - Past Surgical History Past Surgical History: Yes Neuro Surgical History: No Pertinent History Cardiac: No Pertinent History Respiratory: No Pertinent History Gastrointestinal: No Pertinent History Genitourinary: No Pertinent History Musculoskeletal: Other Male Surgical History: No Pertinent History Other Surgical History: pt states he has had carpal tunnel surgery and tooth extractions.pilonidal cyst removed - Social History Smoking Status: Current every day smoker How long have you smoked: 30 Exposure to second hand smoke: No Alcohol Use: Socially Drug Use: none Patient Lives Alone: No Significant Family History: diabetes, hypertension - Nursing Vital Signs Nursing Vital Signs: Initial Vital Signs Temperature 98 F 04/29/18 17:24 Pulse Rate 104 H 04/29/18 17:24 Respiratory Rate 16 04/29/18 17:24 Blood Pressure 132/102 04/29/18 17:24 O2 Sat by Pulse Oximetry 100 04/29/18 17:24 Pain Scale Pain Intensity 8 - Physical Exam General Appearance: no apparent distress Eye Exam: eyes nml inspection Ears, Nose, Throat Exam: normal ENT inspection, TMs normal, pharynx normal, moist mucous membranes Neck Exam: normal inspection, non-tender, supple, No mass, No JVD Respiratory Exam: normal breath sounds, lungs clear, airway intact Cardiovascular Exam: regular rate/rhythm, normal heart sounds, normal peripheral pulses, No murmur Gastrointestinal/Abdomen Exam: soft, normal bowel sounds, No tenderness, No distention, No mass, No organomegaly Extremity Exam: normal inspection, No calf tenderness, No pedal edema Neurologic Exam: alert, oriented x 3, normal mood/affect Skin Exam: normal color, warm, dry, rash (scattered, solitary lesions, papules over the extensor surface of the left forearm, and similar lesions on the right anterior thigh, no blisters, bullae or other typical lesions.) Lymphatic Exam: No adenopathy SpO2 Interpretation: normal SpO2: 100 Oxygen Delivery: Room Air - Course Nursing assessment & vital signs reviewed: Yes - Progress Progress: unchanged Progress Note: 04/29/18 17:51 I informed her father about the nature of their disease, and the care, they understood, will use Elimite cream once, as directed. i also gave him Cortisporin ear drops to use it to his right ear. Counseled pt/family regarding: diagnosis, need for follow-up - Departure Time of Disposition: 17:53 Departure Disposition: Home Clinical Impression: Scabies, External otitis of right ear Condition: Stable Critical Care Time: No Referrals: DENY LEZAMA [Primary Care Provider] - Instructions: Scabies (DC), Outer Ear Infection (DC) Additional Instructions: Use Elimite cream only once as directed, then wash it away with abundant water! Follow up with your physician in 1 week, return if severe pain, swelling, difficulty breathing, high fever> 102 F! Prescriptions: Permethrin Cream [Elimite CREAM] 60 gm TP DIRECTIONS UNKNOWN #1 tube
[2018-04-29] MEDS ORDERED: CORTISPORIN EAR DROPS 10 ML SUSPENSION OT ONE (17:56)
== END 2018-04-29 18:21 | disposition home or self-care (01) ==
LOC: ED 16:56
DX: B86 Scabies (principal); H60.91 Unspecified otitis externa, right ear
CPT/HCPCS: 99283; A9270-GY

== ENCOUNTER 2018-09-17 15:10 | Observation (INO) | payer OTHER ==
--- NOTE | 2018-09-17 15:56 | ERPHSYRPT ---
- History of Present Illness Time Seen by Provider: 09/17/18 15:42 Historian: patient Patient Subjective Stated Complaint: patietn states having extreme paihn in his lower abdomen left side wghen he cough the pain elevates and is unbearable. recently started smoking again but this has been going on for about 2 weeks today it was just unbearable Triage Nursing Assessment: pt alert and oriented x3, able to ambulate by self, lung sounds diminished, bowel sounds present x4, abdominal tenderness to left side, skin wamr dry and itnact, patient has some scratches and scrapes no major injuries. Physician History: The patient is a 38-year-old male complaining of worsening abdominal pain for 2 weeks. The abdominal pain is on the left upper side of his abdomen. It hurts more when he coughs. When he is not coughing, it feels like a pressure. When he coughs it is a sharp pain radiating around to his left side and back. He denies fever or chills. He denies nausea, vomiting, or diarrhea. He denies any abdominal injuries. He denies sore throat. His past medical history significant for atrial fibrillation, DM, COPD, and high cholesterol. He has had no abdominal surgeries. Timing/Duration: week(s) (2), gradual onset, worse Activities at Onset: none Quality: fullness, pressure Abdominal Pain Onset Location: LUQ Pain Radiation: flank (left) Severity of Pain-Max: moderate Severity of Pain-Current: moderate Modifying Factors: Improves With: coughing (makes pain worse) Associated Symptoms: denies symptoms, No diarrhea, No nausea, No vomiting Previous symptoms: no prior history Allergies/Adverse Reactions: venom-honey bee Allergy (Verified 04/29/18 17:30) Home Medications: Albuterol Sulfate [Albuterol Sulfate Hfa] 8.5 gm IH Q4H PRN PRN 10/13/16 [ History] Tiotropium Vancleave Inhaler [Spiriva 18 Mcg/Cap Inhaler] 1 ea IH DAILY [History] Rivaroxaban 10 mg Tablet [Xarelto 10 mg Tablet] 10 mg PO DAILY 12/13/16 [ History] Metformin HCl 500 mg [Glucophage 500 MG] 500 mg BID 07/27/17 [History] Hx Tetanus, Diphtheria Vaccination/Date Given: Yes Hx Influenza Vaccination/Date Given: No Hx Pneumococcal Vaccination/Date Given: No Immunizations Up to Date: Yes - Review of Systems Constitutional: No Fever, No Chills Eyes: No Symptoms Ears, Nose, & Throat: No Symptoms Respiratory: Cough (for 2 years since diagnosis of COPD.) Cardiac: No Chest Pain, No Edema, No Syncope Abdominal/Gastrointestinal: Abdominal Pain, No Nausea, No Vomiting, No Diarrhea Genitourinary Symptoms: No Dysuria Musculoskeletal: No Back Pain, No Neck Pain Skin: No Rash Neurological: No Dizziness, No Focal Weakness, No Sensory Changes Psychological: No Symptoms Endocrine: No Symptoms Hematologic/Lymphatic: No Symptoms Immunological/Allergic: No Symptoms All Other Systems: Reviewed and Negative - Past Medical History Pertinent Past Medical History: Yes Neurological History: No Pertinent History ENT History: No Pertinent History Cardiac History: Arrhythmia, High Cholesterol, Hypertension, Peripheral Vascular Disease Respiratory History: COPD Endocrine Medical History: Diabetes Type II Musculoskeletal History: No Pertinent History GI Medical History: No Pertinent History History: No Pertinent History Psycho-Social History: Depression Male Reproductive Disorders: No Pertinent History Other Medical History: pilonidal cyst - Past Surgical History Past Surgical History: Yes Neuro Surgical History: No Pertinent History Cardiac: No Pertinent History Respiratory: No Pertinent History Gastrointestinal: No Pertinent History Genitourinary: No Pertinent History Musculoskeletal: Other Male Surgical History: No Pertinent History Other Surgical History: pt states he has had carpal tunnel surgery and tooth extractions.pilonidal cyst removed - Social History Smoking Status: Current every day smoker How long have you smoked: 30 Exposure to second hand smoke: No Alcohol Use: Socially Drug Use: none Patient Lives Alone: No Significant Family History: diabetes, hypertension - Nursing Vital Signs Nursing Vital Signs: Initial Vital Signs Temperature 97.7 F 09/17/18 15:11 Pulse Rate 83 09/17/18 15:11 Respiratory Rate 16 09/17/18 15:11 Blood Pressure 162/96 09/17/18 15:11 O2 Sat by Pulse Oximetry 97 09/17/18 15:11 Pain Scale Pain Intensity 10 - Physical Exam General Appearance: no apparent distress, alert Eye Exam: PERRL/EOMI, eyes nml inspection Ears, Nose, Throat Exam: normal ENT inspection, pharynx normal, moist mucous membranes Neck Exam: normal inspection, non-tender, supple, full range of motion Respiratory Exam: normal breath sounds, lungs clear, No respiratory distress Cardiovascular Exam: regular rate/rhythm, normal heart sounds Gastrointestinal/Abdomen Exam: soft, tenderness (LUQ), other (left flank tenderness), No hernia Rectal Exam: not done Back Exam: normal inspection, normal range of motion, No CVA tenderness, No vertebral tenderness Extremity Exam: normal inspection, normal range of motion, pelvis stable Neurologic Exam: alert, oriented x 3, cooperative, normal mood/affect, nml cerebellar function, sensation nml, No motor deficits Skin Exam: normal color, warm, dry SpO2 Interpretation: normal SpO2: 97 Oxygen Delivery: Room Air - Course EKG Interpreted by Me: RATE, Sinus Rhythm, NORMAL AXIS, NORMAL INTERVALS, NORMAL QRS, NORMAL ST-T, Other (comp EKG 11/04/16.) - Radiology Exams Chest X-ray Interpretation: Interpreted by me, Other (multiple pulmonary nodules) - CT Exams Abdomen/Pelvis CT Interpretation: Tele-radiologist Report (per Dr Franklin), Other (multiple bilateral pulmonary nodules that could represents metastatic disease, noncalcified granulomas, or autoimmune disease; very large fatty liver) Chest CT Interpretation: Tele-radiologist Report (Per Dr Franklin), Other (multiple pulmonary nodules; moderate mediastinal adenopathy.) Ordered Tests: Active Orders 24 hr Category Date Time Status Clean Catch Urine Specimen STAT Care 09/17/18 16:08 Active EKG-ER Only STAT Care 09/17/18 16:08 Active IV Insertion STAT Care 09/17/18 16:08 Active ABDOMEN AND PELVIS W/0 CONTRAS [CT] Stat Exams 09/17/18 16:52 Taken CHEST 2 VIEWS (PA AND LAT) Stat Exams 09/17/18 16:09 Taken CHEST WITH CONTRAST [CT] Stat Exams 09/17/18 18:24 Taken AMYLASE Stat Lab 09/17/18 16:05 Completed CBC W DIFF Stat Lab 09/17/18 16:08 Completed CMP Stat Lab 09/17/18 16:05 Completed D-DIMER QUANTITATION Stat Lab 09/17/18 16:18 Completed LIPASE Stat Lab 09/17/18 16:05 Completed Lactic Acid Stat Lab 09/17/18 16:08 Completed Lactic Acid Stat Lab 09/17/18 18:19 Ordered Manual Differential NC Stat Lab 09/17/18 16:08 Completed [place] Screen Stat Lab 09/17/18 16:05 Completed TROPONIN Q3H Lab 09/17/18 16:05 Completed TROPONIN Q3H Lab 09/17/18 19:15 Ordered TROPONIN Q3H Lab 09/17/18 22:15 Ordered TROPONIN Q3H Lab 09/18/18 01:15 Ordered TROPONIN Q3H Lab 09/18/18 04:15 Ordered UA W/RFX UR CULTURE Stat Lab 09/17/18 18:07 Completed Medication Summary Discontinued Medications Generic Name Dose Route Start Last Admin Trade Name Claudio PRN Reason Stop Dose Admin Sodium Chloride 1,000 mls @ 999 mls/hr 09/17/18 16:08 09/17/18 18:48 Sodium Chloride 0.9% 1000 Ml IV 09/17/18 17:08 Infused .Q1H1M STA Infusion Sodium Chloride Confirm 09/17/18 16:23 Sodium Chloride 0.9% 1000 Ml Administered 09/17/18 16:24 Dose 1,000 mls @ ud .ROUTE .STK-MED ONE Morphine Sulfate 4 mg 09/17/18 16:08 09/17/18 17:02 Morphine Sulfate 4 Mg Inj IV 09/17/18 16:09 Not Given STAT ONE Morphine Sulfate Confirm 09/17/18 16:23 Morphine Sulfate 4 Mg Inj Administered 09/17/18 16:24 Dose 4 mg .ROUTE .STK-MED ONE Ondansetron HCl 4 mg 09/17/18 16:08 09/17/18 16:26 Zofran 4 Mg/2 Ml Vial IV 09/17/18 16:09 4 mg STAT ONE Administration Ondansetron HCl Confirm 09/17/18 16:23 Zofran 4 Mg/2 Ml Vial Administered 09/17/18 16:24 Dose 4 mg .ROUTE .STK-MED ONE Lab/Rad Data: Laboratory Result Diagrams 09/17/18 16:08 09/17/18 16:05 Laboratory Results 09/17/18 09/17/18 09/17/18 Range/Units 18:07 16:18 16:08 WBC (4.0-10.5) K/mm3 RBC (4.1-5.6) M/mm3 Hgb (12.5-18.0) gm/dl Hct (42-50) % MCV (78-100) fl MCH (26-32) pg MCHC (32-36) g/dl RDW (11.5-14.0) % Plt Count (150-450) K/mm3 MPV (6-9.5) fl Segmented Neutrophils (36.-66.) % Band Neutrophils (0.0-2.0) % Lymphocytes (Manual) (24-44) % Monocytes (Manual) (0.0-12.0) % Eosinophils (Manual) (0.00-3.0) % Platelet Estimate (NORMAL) RBC Morphology D-Dimer < 215 L (215-500) ng/mL Sodium (137-145) mmol/L Potassium (3.5-5.1) mmol/L Chloride (98-107) mmol/L Carbon Dioxide (22-30) mmol/L Anion Gap (5-15) MEQ/L BUN (9-20) mg/dL Creatinine (0.66-1.25) mg/dL Estimated GFR ML/MIN Glucose (74-106) mg/dL Lactic Acid 2.5 H (0.4-2.0) Calcium (8.4-10.2) mg/dL Total Bilirubin (0.2-1.3) mg/dL AST (17-59) U/L ALT (0-50) U/L Alkaline Phosphatase (38-126) U/L Troponin I (0.000-0.034) ng/mL Serum Total Protein (6.3-8.2) g/dL Albumin (3.5-5.0) g/dL Amylase (30-110) U/L Lipase (23-300) U/L Urine Color YELLOW (YELLOW) Urine Appearance CLEAR (CLEAR) Urine pH 5.0 (5-6) Ur Specific [place] 1.013 (1.005-1.025) Urine Protein NEGATIVE (Negative) Urine Ketones NEGATIVE (NEGATIVE) Urine Blood NEGATIVE (0-5) Brayden/ul Urine Nitrite NEGATIVE (NEGATIVE) Urine Bilirubin NEGATIVE (NEGATIVE) Urine Urobilinogen NEGATIVE (0-1) mg/dL Ur Leukocyte Esterase NEGATIVE (NEGATIVE) Urine WBC (Auto) 0-2 (0-5) /HPF Urine RBC (Auto) NONE SEEN (0-2) /HPF U Epithel Cells (Auto) NONE (FEW) /HPF Urine Bacteria (Auto) NONE SEEN (NEGATIVE) /HPF Urine Mucus (Auto) SLIGHT (NEGATIVE) /HPF Urine Culture Reflexed NO (NO) Urine Glucose 50 (NEGATIVE) mg/dL Monoscreen (Negative) 09/17/18 09/17/18 09/17/18 Range/Units 16:08 16:05 16:05 WBC 8.2 (4.0-10.5) K/mm3 RBC 5.22 (4.1-5.6) M/mm3 Hgb 16.0 (12.5-18.0) gm/dl Hct 45.6 (42-50) % MCV 87.4 (78-100) fl MCH 30.7 (26-32) pg MCHC 35.1 (32-36) g/dl RDW 12.9 (11.5-14.0) % Plt Count 190 (150-450) K/mm3 MPV 9.9 H (6-9.5) fl Segmented Neutrophils 44 (36.-66.) % Band Neutrophils 2 (0.0-2.0) % Lymphocytes (Manual) 42 (24-44) % Monocytes (Manual) 6 (0.0-12.0) % Eosinophils (Manual) 6 H (0.00-3.0) % Platelet Estimate NORMAL (NORMAL) RBC Morphology NORMAL D-Dimer (215-500) ng/mL Sodium (137-145) mmol/L Potassium (3.5-5.1) mmol/L Chloride (98-107) mmol/L Carbon Dioxide (22-30) mmol/L Anion Gap (5-15) MEQ/L BUN (9-20) mg/dL Creatinine (0.66-1.25) mg/dL Estimated GFR ML/MIN Glucose (74-106) mg/dL Lactic Acid (0.4-2.0) Calcium (8.4-10.2) mg/dL Total Bilirubin (0.2-1.3) mg/dL AST (17-59) U/L ALT (0-50) U/L Alkaline Phosphatase (38-126) U/L Troponin I < 0.012 (0.000-0.034) ng/mL Serum Total Protein (6.3-8.2) g/dL Albumin (3.5-5.0) g/dL Amylase (30-110) U/L Lipase (23-300) U/L Urine Color (YELLOW) Urine Appearance (CLEAR) Urine pH (5-6) Ur Specific [place] (1.005-1.025) Urine Protein (Negative) Urine Ketones (NEGATIVE) Urine Blood (0-5) Brayden/ul Urine Nitrite (NEGATIVE) Urine Bilirubin (NEGATIVE) Urine Urobilinogen (0-1) mg/dL Ur Leukocyte Esterase (NEGATIVE) Urine WBC (Auto) (0-5) /HPF Urine RBC (Auto) (0-2) /HPF U Epithel Cells (Auto) (FEW) /HPF Urine Bacteria (Auto) (NEGATIVE) /HPF Urine Mucus (Auto) (NEGATIVE) /HPF Urine Culture Reflexed (NO) Urine Glucose (NEGATIVE) mg/dL Monoscreen NEGATIVE (Negative) 09/17/18 Range/Units 16:05 WBC (4.0-10.5) K/mm3 RBC (4.1-5.6) M/mm3 Hgb (12.5-18.0) gm/dl Hct (42-50) % MCV (78-100) fl MCH (26-32) pg MCHC (32-36) g/dl RDW (11.5-14.0) % Plt Count (150-450) K/mm3 MPV (6-9.5) fl Segmented Neutrophils (36.-66.) % Band Neutrophils (0.0-2.0) % Lymphocytes (Manual) (24-44) % Monocytes (Manual) (0.0-12.0) % Eosinophils (Manual) (0.00-3.0) % Platelet Estimate (NORMAL) RBC Morphology D-Dimer (215-500) ng/mL Sodium 136 L (137-145) mmol/L Potassium 4.0 (3.5-5.1) mmol/L Chloride 102 (98-107) mmol/L Carbon Dioxide 22 (22-30) mmol/L Anion Gap 16.6 H (5-15) MEQ/L BUN 9 (9-20) mg/dL Creatinine 0.62 L (0.66-1.25) mg/dL Estimated GFR > 60.0 ML/MIN Glucose 271 H (74-106) mg/dL Lactic Acid (0.4-2.0) Calcium 9.9 (8.4-10.2) mg/dL Total Bilirubin 1.10 (0.2-1.3) mg/dL AST 52 (17-59) U/L ALT 63 H (0-50) U/L Alkaline Phosphatase 83 (38-126) U/L Troponin I (0.000-0.034) ng/mL Serum Total Protein 8.2 (6.3-8.2) g/dL Albumin 4.6 (3.5-5.0) g/dL Amylase 64 (30-110) U/L Lipase 195 (23-300) U/L Urine Color (YELLOW) Urine Appearance (CLEAR) Urine pH (5-6) Ur Specific [place] (1.005-1.025) Urine Protein (Negative) Urine Ketones (NEGATIVE) Urine Blood (0-5) Brayden/ul Urine Nitrite (NEGATIVE) Urine Bilirubin (NEGATIVE) Urine Urobilinogen (0-1) mg/dL Ur Leukocyte Esterase (NEGATIVE) Urine WBC (Auto) (0-5) /HPF Urine RBC (Auto) (0-2) /HPF U Epithel Cells (Auto) (FEW) /HPF Urine Bacteria (Auto) (NEGATIVE) /HPF Urine Mucus (Auto) (NEGATIVE) /HPF Urine Culture Reflexed (NO) Urine Glucose (NEGATIVE) mg/dL Monoscreen (Negative) - Progress Progress: improved Discussed with Dr.: Chad (for Dr aCrroll) Will see patient in: hospital (observation) Counseled pt/family regarding: lab results, diagnosis, rad results - Departure Time of Disposition: 18:56 Departure Disposition: Observation (per Dr Bonilla for Dr Carroll) Clinical Impression: Abdominal pain, Pulmonary nodules Condition: Stable Critical Care Time: No Referrals: DENY CARROLL [Primary Care Provider] -
[2018-09-17] MEDS ORDERED: Sodium Chloride 0.9% 1000 ML 1,000 ML IV STA (16:08)
[2018-09-17] MEDS ORDERED: Zofran 4 MG/2 ML VIAL IV ONE (16:08)
[2018-09-17] MEDS ORDERED: MORPHINE SULFATE 4 MG INJ IV ONE (16:08)
[2018-09-17 16:17] LABS: Hematocrit 45.6 % (42-50); Mean Cell Volume 87.4 fl (78-100); Mean Corpuscular Hemoglobin 30.7 pg (26-32); Mean Corpuscular Hgb Concent. 35.1 g/dl (32-36); Mean Platelet Volume 9.9 fl (6-9.5); Platelet Count 190 K/mm3 (150-450); Red Blood Count 5.22 M/mm3 (4.1-5.6); Red Cell Distribution Width 12.9 % (11.5-14.0); White Blood Count 8.2 K/mm3 (4.0-10.5)
[2018-09-17 16:19] LABS: Lactic Acid 2.5 (0.4-2.0)
[2018-09-17 16:21] LABS: ALBUMIN 4.6 g/dL (3.5-5.0); ALKALINE PHOSPHATASE 83 U/L (38-126); AMYLASE 64 U/L (30-110); ANION GAP 16.6 MEQ/L (5-15); BLOOD UREA NITROGEN 9 mg/dL (9-20); CHLORIDE 102 mmol/L (98-107); Calcium 9.9 mg/dL (8.4-10.2); Carbon Dioxide 22 mmol/L (22-30); Creatinine 1 0.62 mg/dL (0.66-1.25); LIPASE 195 U/L (23-300); SGOT/AST 52 U/L (17-59); SGPT/ALT 63 U/L (0-50); SODIUM 136 mmol/L (137-145); Total Protein 8.2 g/dL (6.3-8.2)
[2018-09-17] MEDS ORDERED: Sodium Chloride 0.9% 1000 ML 1,000 ML ONE (16:23)
[2018-09-17] MEDS ORDERED: Zofran 4 MG/2 ML VIAL ONE (16:23)
[2018-09-17] MEDS ORDERED: MORPHINE SULFATE 4 MG INJ ONE (16:23)
[2018-09-17 16:29] LABS: Glucose 271 mg/dL (74-106)
[2018-09-17 17:36] LABS: BAND 2 % (0.0-2.0); Eosinophil 6 % (0.00-3.0); Lymphocytes 42 % (24-44); Monocyte 6 % (0.0-12.0); Neutrophils 44 % (36.-66.); Total Cells Counted 100
[2018-09-17 17:37] LABS: Platelet Estimate NORMAL (NORMAL)
[2018-09-17 18:18] LABS: Appearance CLEAR (CLEAR); Bilirubin NEGATIVE (NEGATIVE); Blood NEGATIVE Ery/ul (0-5); Glucose 50 mg/dL (NEGATIVE); Ketones NEGATIVE (NEGATIVE); Leukocyte Esterase NEGATIVE (NEGATIVE); Nitrite NEGATIVE (NEGATIVE); Protein,Urine Dip NEGATIVE (Negative); Specific Gravity 1.013 (1.005-1.025); Urobilinogen NEGATIVE mg/dL (0-1)
[2018-09-17] MEDS ORDERED: Zofran 4 MG/2 ML VIAL IV PRN (19:20)
[2018-09-17] MEDS ORDERED: MORPHINE SULFATE 4 MG INJ IV PRN (19:20)
--- NOTE | 2018-09-17 19:23 | XRAY ---
Indication: Nodules on same day CT abdomen/pelvis. Multiple contiguous axial images obtained through the chest using 80 cc Isovue 370 contrast. Comparison: None There are several scattered small subcentimeter calcified and noncalcified nodules bilaterally probably granulomatous in this demographic. No infiltrate or effusion. Heart is not enlarged. Aorta is normal in course and caliber. A few small bilateral hilar calcified nodes. Also prominent subcarinal node with calcifications favoring granulomatous and a 2.1 x 2.3 cm right paratracheal noncalcified node. Bony thorax intact. CT abdomen reported separately. Impression: 1. Scattered bilateral small calcified/noncalcified nodules probably granulomatous in this demographic. Additional evidence for old granulomatous disease elsewhere. 2. No acute cardiopulmonary abnormalities. Comment: Preliminary interpretation was made by [facility]. No critical discrepancy. CTDI 17.44
--- NOTE | 2018-09-17 19:25 | XRAY ---
Indication: Cough. Comparison: May 12, 2017. PA/lateral chest again demonstrates a few small bilateral calcified/noncalcified granulomas. No focal infiltrate, consolidation, or large effusion. Heart and mediastinal structures within normal limits. Bony thorax intact. Impression: Stable nonacute chest with evidence for old granulomatous disease.
--- NOTE | 2018-09-17 19:27 | XRAY ---
Indication: Left upper abdomen pain 2 weeks. Multiple contiguous axial images obtained through the abdomen and pelvis without contrast as ordered. Comparison: None CT chest reported separately. Noncontrasted stomach and bowel loops appear nonobstructed. Normal appendix. No free fluid/air. Diffuse fatty liver. Tiny scattered calcified splenic granulomas. Remaining liver, gallbladder, pancreas, spleen, adrenal glands, kidneys, ureters, bladder, and aorta appear unremarkable for noncontrast exam. Osseous structures intact with minimal lower lumbar degenerative spondylosis. Incidental bilateral L5 spondylolysis with minimal 1-2 mm spondylolisthesis. No ventral or inguinal hernias. Impression: 1. Fatty liver and calcified splenic granulomas. 2. No acute intra-abdominal/pelvic abnormalities on this noncontrast exam. 3. Bilateral L5 spondylolysis with minimal grade 1 spondylolisthesis. Comment: Preliminary interpretation was made by [facility]. No critical discrepancy. CTDI 22.11
[2018-09-17] MEDS: Sodium Chloride 0.9% 1000 ML 1,000 ML IV SCH (19:54)
[2018-09-17] MEDS ORDERED: PATIENT OWN MEDICATION IH PRN (21:20)
[2018-09-18 05:58] LABS: Hematocrit 43.6 % (42-50); Hemoglobin 15.2 gm/dl (12.5-18.0); Mean Cell Volume 88.8 fl (78-100); Mean Corpuscular Hgb Concent. 34.9 g/dl (32-36); Mean Platelet Volume 9.8 fl (6-9.5); Platelet Count 168 K/mm3 (150-450); Red Blood Count 4.91 M/mm3 (4.1-5.6); Red Cell Distribution Width 13.2 % (11.5-14.0); White Blood Count 7.8 K/mm3 (4.0-10.5)
[2018-09-18] MEDS: Sodium Chloride 0.9% 1000 ML 1,000 ML IV SCH (06:00)
[2018-09-18 06:11] LABS: ALBUMIN 3.8 g/dL (3.5-5.0); ALKALINE PHOSPHATASE 70 U/L (38-126); ANION GAP 11.4 MEQ/L (5-15); BLOOD UREA NITROGEN 10 mg/dL (9-20); CHLORIDE 105 mmol/L (98-107); Carbon Dioxide 24 mmol/L (22-30); Creatinine 1 0.64 mg/dL (0.66-1.25); Glucose 293 mg/dL (74-106); Potassium 4.1 mmol/L (3.5-5.1); SGOT/AST 32 U/L (17-59); SGPT/ALT 48 U/L (0-50); SODIUM 136 mmol/L (137-145)
[2018-09-18 07:35] VITALS: BP 104/59; PULSE 68; O2SAT 96
--- NOTE | 2018-09-18 08:37 | PCM.SSS ---
History of Present Illness - Chief Complaint Chief Complaint: abdominal pain History of Present Illness: is a 38 year old male pt of mine from [facility] with PMHx afib, COPD, DM, and hyperlipidemia who came in to ER c/o LUQ pain. He started having the pain 2 weeks ago, like a "flick" in the LUQ with coughing. For the last 2 days it has been worse, and yesterday had 9/10 pain with cough. After admission pain decreased to 7-8/10, only with coughing. No pain at rest. CT abd/pelvi wiht fatty liver. CT chest with lg node, paratracheal, 2.1x 2.3 cm. This and other nodes prob related to granulomatous disease. WBC nl. Troponins neg x 2. Pt denies fever, no more cough than at baseline. no melena/hematochezia. Had colonoscopy about 3 yrs ago, he thinks, neg for polyps per his report. - Review of Systems Respiratory: Cough (no increase recently; chronic) Abdominal/Gastrointestinal: Abdominal Pain, Diarrhea (chronic) Psychological: No Anxiety, No Depression, No Suicidal Ideations All Other Systems: Reviewed and Negative Medications & Allergies Home Medications: Home Medication List Albuterol Sulfate [Albuterol Sulfate Hfa] 8.5 gm IH Q4H PRN PRN 10/13/16 [ History Confirmed 09/17/18] Rivaroxaban 10 mg Tablet [Xarelto 10 mg Tablet] 20 mg PO DAILY 12/13/16 [ History Confirmed 09/17/18] Metformin HCl 500 mg [Glucophage 500 MG] 500 mg PO BID 05/12/17 [History Confirmed 09/17/18] Simvastatin 40 mg [Zocor 40 mg] 40 mg PO DAILY 09/17/18 [History Confirmed 09/17] Sotalol HCl 80 mg [Betapace 80 MG] 80 mg PO DAILY 09/17/18 [History Confirmed 09/17/18] Allergies/Adverse Reactions: Allergies Allergy/AdvReac Type Severity Reaction Status Date / Time venom-honey bee Allergy Verified 04/29/18 17:30 - Past Medical History Past Medical History: Yes Neurological History: No Pertinent History ENT History: No Pertinent History Cardiac History: Arrhythmia, High Cholesterol, Hypertension, Peripheral Vascular Disease Respiratory History: COPD Endocrine Medical History: Diabetes Type II Musculoskelatal History: No Pertinent History GI Medical History: No Pertinent History History: No Pertinent History Pyscho-Social History: No Pertinent History Male Reproductive Disorders: No Pertinent History Comment: pilonidal cyst- removed - Past Surgical History Past Surgical History: Yes Neuro Surgical History: No Pertinent History Cardiac History: No Pertinent History Respiratory Surgery: No Pertinent History GI Surgical History: No Pertinent History Genitourinary Surgical Hx: No Pertinent History Musculskeletal Surgical Hx: Other Male Surgical History: No Pertinent History Other Surgical History: carpal tunnel surgery, tooth extractions, pilonidal cyst removed - Social History Smoking Status: Current every day smoker How long have you smoked: 30 years Exposure to second hand smoke: No Alcohol: Occasionally Drug Use: none Significant Family History: diabetes, hypertension - Physical Exam Vital Signs: Vital Signs - 24 hr Temp Pulse Resp BP Pulse Ox 09/18/18 07:33 98.2 F 68 18 104/59 96 09/18/18 07:29 62 18 94 L 09/18/18 04:00 97.6 F 72 18 121/74 94 L 09/18/18 00:00 97.3 F 88 16 132/81 94 L 09/17/18 21:00 113 H 15 97 09/17/18 20:12 98 F 94 H 16 136/91 96 09/17/18 19:01 97 09/17/18 18:40 98 H 20 143/88 97 09/17/18 16:01 74 16 121/77 96 09/17/18 15:11 97.7 F 83 16 162/96 97 Results - Labs Lab/Micro Results: Accuchecks Accucheck Value: 286 Lab Results-Last 24 Hours 09/17/18 09/17/18 09/17/18 Range/Units 16:05 16:05 16:05 WBC (4.0-10.5) K/mm3 RBC (4.1-5.6) M/mm3 Hgb (12.5-18.0) gm/dl Hct (42-50) % MCV (78-100) fl MCH (26-32) pg MCHC (32-36) g/dl RDW (11.5-14.0) % Plt Count (150-450) K/mm3 MPV (6-9.5) fl Segmented Neutrophils (36.-66.) % Band Neutrophils (0.0-2.0) % Lymphocytes (Manual) (24-44) % Monocytes (Manual) (0.0-12.0) % Eosinophils (Manual) (0.00-3.0) % Platelet Estimate (NORMAL) RBC Morphology D-Dimer (215-500) ng/mL Sodium 136 L (137-145) mmol/L Potassium 4.0 (3.5-5.1) mmol/L Chloride 102 (98-107) mmol/L Carbon Dioxide 22 (22-30) mmol/L Anion Gap 16.6 H (5-15) MEQ/L BUN 9 (9-20) mg/dL Creatinine 0.62 L (0.66-1.25) mg/dL Estimated GFR > 60.0 ML/MIN Glucose 271 H (74-106) mg/dL Lactic Acid (0.4-2.0) Calcium 9.9 (8.4-10.2) mg/dL Total Bilirubin 1.10 (0.2-1.3) mg/dL AST 52 (17-59) U/L ALT 63 H (0-50) U/L Alkaline Phosphatase 83 (38-126) U/L Troponin I < 0.012 (0.000-0.034) ng/mL Serum Total Protein 8.2 (6.3-8.2) g/dL Albumin 4.6 (3.5-5.0) g/dL Amylase 64 (30-110) U/L Lipase 195 (23-300) U/L Urine Color (YELLOW) Urine Appearance (CLEAR) Urine pH (5-6) Ur Specific [place] (1.005-1.025) Urine Protein (Negative) Urine Ketones (NEGATIVE) Urine Blood (0-5) Brayden/ul Urine Nitrite (NEGATIVE) Urine Bilirubin (NEGATIVE) Urine Urobilinogen (0-1) mg/dL Ur Leukocyte Esterase (NEGATIVE) Urine WBC (Auto) (0-5) /HPF Urine RBC (Auto) (0-2) /HPF U Epithel Cells (Auto) (FEW) /HPF Urine Bacteria (Auto) (NEGATIVE) /HPF Urine Mucus (Auto) (NEGATIVE) /HPF Urine Culture Reflexed (NO) Urine Glucose (NEGATIVE) mg/dL Monoscreen NEGATIVE (Negative) 09/17/18 09/17/1809/17/18 Range/Units 16:08 16:08 16:18 WBC 8.2 (4.0-10.5) K/mm3 RBC 5.22 (4.1-5.6) M/mm3 Hgb 16.0 (12.5-18.0) gm/dl Hct 45.6 (42-50) % MCV 87.4 (78-100) fl MCH 30.7 (26-32) pg MCHC 35.1 (32-36) g/dl RDW 12.9 (11.5-14.0) % Plt Count 190 (150-450) K/mm3 MPV 9.9 H (6-9.5) fl Segmented Neutrophils 44 (36.-66.) % Band Neutrophils 2 (0.0-2.0) % Lymphocytes (Manual) 42 (24-44) % Monocytes (Manual) 6 (0.0-12.0) % Eosinophils (Manual) 6 H (0.00-3.0) % Platelet Estimate NORMAL (NORMAL) RBC Morphology NORMAL D-Dimer < 215 L (215-500) ng/mL Sodium (137-145) mmol/L Potassium (3.5-5.1) mmol/L Chloride (98-107) mmol/L Carbon Dioxide (22-30) mmol/L Anion Gap (5-15) MEQ/L BUN (9-20) mg/dL Creatinine (0.66-1.25) mg/dL Estimated GFR ML/MIN Glucose (74-106) mg/dL Lactic Acid 2.5 H (0.4-2.0) Calcium (8.4-10.2) mg/dL Total Bilirubin (0.2-1.3) mg/dL AST (17-59) U/L ALT (0-50) U/L Alkaline Phosphatase (38-126) U/L Troponin I (0.000-0.034) ng/mL Serum Total Protein (6.3-8.2) g/dL Albumin (3.5-5.0) g/dL Amylase (30-110) U/L Lipase (23-300) U/L Urine Color (YELLOW) Urine Appearance (CLEAR) Urine pH (5-6) Ur Specific [place] (1.005-1.025) Urine Protein (Negative) Urine Ketones (NEGATIVE) Urine Blood (0-5) Brayden/ul Urine Nitrite (NEGATIVE) Urine Bilirubin (NEGATIVE) Urine Urobilinogen (0-1) mg/dL Ur Leukocyte Esterase (NEGATIVE) Urine WBC (Auto) (0-5) /HPF Urine RBC (Auto) (0-2) /HPF U Epithel Cells (Auto) (FEW) /HPF Urine Bacteria (Auto) (NEGATIVE) /HPF Urine Mucus (Auto) (NEGATIVE) /HPF Urine Culture Reflexed (NO) Urine Glucose (NEGATIVE) mg/dL Monoscreen (Negative) 09/17/18 09/17/18 09/17/18 Range/Units 18:07 19:30 19:32 WBC (4.0-10.5) K/mm3 RBC (4.1-5.6) M/mm3 Hgb (12.5-18.0) gm/dl Hct (42-50) % MCV (78-100) fl MCH (26-32) pg MCHC (32-36) g/dl RDW (11.5-14.0) % Plt Count (150-450) K/mm3 MPV (6-9.5) fl Segmented Neutrophils (36.-66.) % Band Neutrophils (0.0-2.0) % Lymphocytes (Manual) (24-44) % Monocytes (Manual) (0.0-12.0) % Eosinophils (Manual) (0.00-3.0) % Platelet Estimate (NORMAL) RBC Morphology D-Dimer (215-500) ng/mL Sodium (137-145) mmol/L Potassium (3.5-5.1) mmol/L Chloride (98-107) mmol/L Carbon Dioxide (22-30) mmol/L Anion Gap (5-15) MEQ/L BUN (9-20) mg/dL Creatinine (0.66-1.25) mg/dL Estimated GFR ML/MIN Glucose (74-106) mg/dL Lactic Acid 2.0 (0.4-2.0) Calcium (8.4-10.2) mg/dL Total Bilirubin (0.2-1.3) mg/dL AST (17-59) U/L ALT (0-50) U/L Alkaline Phosphatase (38-126) U/L Troponin I < 0.012 (0.000-0.034) ng/mL Serum Total Protein (6.3-8.2) g/dL Albumin (3.5-5.0) g/dL Amylase (30-110) U/L Lipase (23-300) U/L Urine Color YELLOW (YELLOW) Urine Appearance CLEAR (CLEAR) Urine pH 5.0 (5-6) Ur Specific [place] 1.013 (1.005-1.025) Urine Protein NEGATIVE (Negative) Urine Ketones NEGATIVE (NEGATIVE) Urine Blood NEGATIVE (0-5) Brayden/ul Urine Nitrite NEGATIVE (NEGATIVE) Urine Bilirubin NEGATIVE (NEGATIVE) Urine Urobilinogen NEGATIVE (0-1) mg/dL Ur Leukocyte Esterase NEGATIVE (NEGATIVE) Urine WBC (Auto) 0-2 (0-5) /HPF Urine RBC (Auto) NONE SEEN (0-2) /HPF U Epithel Cells (Auto) NONE (FEW) /HPF Urine Bacteria (Auto) NONE SEEN (NEGATIVE) /HPF Urine Mucus (Auto) SLIGHT (NEGATIVE) /HPF Urine Culture Reflexed NO (NO) Urine Glucose 50 (NEGATIVE) mg/dL Monoscreen (Negative) 09/18/18 09/18/18 Range/Units 05:13 05:13 WBC 7.8 (4.0-10.5) K/mm3 RBC 4.91 (4.1-5.6) M/mm3 Hgb 15.2 (12.5-18.0) gm/dl Hct 43.6 (42-50) % MCV 88.8 (78-100) fl MCH 31.0 (26-32) pg MCHC 34.9 (32-36) g/dl RDW 13.2 (11.5-14.0) % Plt Count 168 (150-450) K/mm3 MPV 9.8 H (6-9.5) fl Segmented Neutrophils (36.-66.) % Band Neutrophils (0.0-2.0) % Lymphocytes (Manual) (24-44) % Monocytes (Manual) (0.0-12.0) % Eosinophils (Manual) (0.00-3.0) % Platelet Estimate (NORMAL) RBC Morphology D-Dimer (215-500) ng/mL Sodium 136 L (137-145) mmol/L Potassium 4.1 (3.5-5.1) mmol/L Chloride 105 (98-107) mmol/L Carbon Dioxide 24 (22-30) mmol/L Anion Gap 11.4 (5-15) MEQ/L BUN 10 (9-20) mg/dL Creatinine 0.64 L (0.66-1.25) mg/dL Estimated GFR > 60.0 ML/MIN Glucose 293 H (74-106) mg/dL Lactic Acid (0.4-2.0) Calcium 9.0 (8.4-10.2) mg/dL Total Bilirubin 0.70 (0.2-1.3) mg/dL AST 32 (17-59) U/L ALT 48 (0-50) U/L Alkaline Phosphatase 70 (38-126) U/L Troponin I (0.000-0.034) ng/mL Serum Total Protein 7.0 (6.3-8.2) g/dL Albumin 3.8 (3.5-5.0) g/dL Amylase (30-110) U/L Lipase (23-300) U/L Urine Color (YELLOW) Urine Appearance (CLEAR) Urine pH (5-6) Ur Specific [place] (1.005-1.025) Urine Protein (Negative) Urine Ketones (NEGATIVE) Urine Blood (0-5) Brayden/ul Urine Nitrite (NEGATIVE) Urine Bilirubin (NEGATIVE) Urine Urobilinogen (0-1) mg/dL Ur Leukocyte Esterase (NEGATIVE) Urine WBC (Auto) (0-5) /HPF Urine RBC (Auto) (0-2) /HPF U Epithel Cells (Auto) (FEW) /HPF Urine Bacteria (Auto) (NEGATIVE) /HPF Urine Mucus (Auto) (NEGATIVE) /HPF Urine Culture Reflexed (NO) Urine Glucose (NEGATIVE) mg/dL Monoscreen (Negative) Accuchecks Accucheck Value: 286 - Radiology Impressions Radiology Exams & Impressions: Radiology Procedures Category Date Time Status ABDOMEN AND PELVIS W/0 CONTRAS [CT] Stat Exams 09/17/18 16:52 Completed CHEST 2 VIEWS (PA AND LAT) Stat Exams 09/17/18 16:09 Completed CHEST WITH CONTRAST [CT] Stat Exams 09/17/18 18:24 Completed - Other Procedures and Tests Respiratory Therapy 09/17/18 21:21 Peak Expiratory Flow Rate ONCE 09/17/18 21:22 Respiratory Therapy Assessment DAILY Assessment/Plan (1) Abdominal pain Current Visit: Yes Status: Acute Qualifiers: Abdominal location: left upper quadrant Qualified Code(s): R10.12 - Left upper quadrant pain Assessment & Plan: Unsure the etiology,but CT abd/pelvis neg for acute issues. Will refer to GI, they can determine if he needs to have another colonoscopy AND discuss his fatty liver. Code(s): R10.9 - UNSPECIFIED ABDOMINAL PAIN (2) Pulmonary nodules Current Visit: Yes Status: Acute Assessment & Plan: to f/u with pulmonology outpatient. (3) Atrial fibrillation Current Visit: No Status: Chronic Qualifiers: Atrial fibrillation type: paroxysmal Qualified Code(s): I48.0 - Paroxysmal atrial fibrillation Code(s): I48.91 - UNSPECIFIED ATRIAL FIBRILLATION (4) COPD (chronic obstructive pulmonary disease) Current Visit: No Status: Chronic Qualifiers: COPD type: unspecified COPD Qualified Code(s): J44.9 - Chronic obstructive pulmonary disease, unspecified (5) Paroxysmal atrial fibrillation Current Visit: No Status: Chronic Code(s): I48.0 - PAROXYSMAL ATRIAL FIBRILLATION (6) Fatty liver Current Visit: Yes Status: Acute Code(s): K76.0 - FATTY (CHANGE OF) LIVER, NOT ELSEWHERE CLASSIFIED Hospital Summary - Hospital Course Hospital Course: is a 38 year old male pt of mine from [facility] with PMHx afib, COPD, DM, and hyperlipidemia who came in to ER c/o LUQ pain. He started having the pain 2 weeks ago, like a "flick" in the LUQ with coughing. For the last 2 days it has been worse, and yesterday had 9/10 pain with cough. After admission pain decreased to 7-8/10, only with coughing. No pain at rest. CT abd/pelvi wiht fatty liver. CT chest with lg node, paratracheal, 2.1x 2.3 cm. This and other nodes prob related to granulomatous disease. WBC nl. Troponins neg x 2. Tolerating po well throughout. Pt denies fever, no more cough than at baseline. no melena/hematochezia. Had colonoscopy about 3 yrs ago, he thinks, neg for polyps per his report. Pt will be discharged to home today; will f/u with GI and pulmonology outpatient. - Vitals & Intake/Output Vital Signs: Vital Signs Temperature 98.2 F 09/18/18 07:33 Pulse Rate 68 09/18/18 07:33 Respiratory Rate 18 09/18/18 07:33 Blood Pressure 104/59 09/18/18 07:33 O2 Sat by Pulse Oximetry 96 09/18/18 07:33 Intake & Output: Intake & Output 09/15/18 09/16/18 09/17/18 09/18/18 11:59 11:59 11:59 11:59 Intake Total 1278 Balance 1278 Weight 99.1 kg - Lab Result Diagrams: 09/18/18 05:13 09/18/18 05:13 Lab Results-Last 24 Hrs: Accuchecks Accucheck Value: 286 Lab Results-Last 24 Hours 09/17/18 09/17/18 09/17/18 Range/Units 16:05 16:05 16:05 WBC (4.0-10.5) K/mm3 RBC (4.1-5.6) M/mm3 Hgb (12.5-18.0) gm/dl Hct (42-50) % MCV (78-100) fl MCH (26-32) pg MCHC (32-36) g/dl RDW (11.5-14.0) % Plt Count (150-450) K/mm3 MPV (6-9.5) fl Segmented Neutrophils (36.-66.) % Band Neutrophils (0.0-2.0) % Lymphocytes (Manual) (24-44) % Monocytes (Manual) (0.0-12.0) % Eosinophils (Manual) (0.00-3.0) % Platelet Estimate (NORMAL) RBC Morphology D-Dimer (215-500) ng/mL Sodium 136 L (137-145) mmol/L Potassium 4.0 (3.5-5.1) mmol/L Chloride 102 (98-107) mmol/L Carbon Dioxide 22 (22-30) mmol/L Anion Gap 16.6 H (5-15) MEQ/L BUN 9 (9-20) mg/dL Creatinine 0.62 L (0.66-1.25) mg/dL Estimated GFR > 60.0 ML/MIN Glucose 271 H (74-106) mg/dL Lactic Acid (0.4-2.0) Calcium 9.9 (8.4-10.2) mg/dL Total Bilirubin 1.10 (0.2-1.3) mg/dL AST 52 (17-59) U/L ALT 63 H (0-50) U/L Alkaline Phosphatase 83 (38-126) U/L Troponin I < 0.012 (0.000-0.034) ng/mL Serum Total Protein 8.2 (6.3-8.2) g/dL Albumin 4.6 (3.5-5.0) g/dL Amylase 64 (30-110) U/L Lipase 195 (23-300) U/L Urine Color (YELLOW) Urine Appearance (CLEAR) Urine pH (5-6) Ur Specific [place] (1.005-1.025) Urine Protein (Negative) Urine Ketones (NEGATIVE) Urine Blood (0-5) Brayden/ul Urine Nitrite (NEGATIVE) Urine Bilirubin (NEGATIVE) Urine Urobilinogen (0-1) mg/dL Ur Leukocyte Esterase (NEGATIVE) Urine WBC (Auto) (0-5) /HPF Urine RBC (Auto) (0-2) /HPF U Epithel Cells (Auto) (FEW) /HPF Urine Bacteria (Auto) (NEGATIVE) /HPF Urine Mucus (Auto) (NEGATIVE) /HPF Urine Culture Reflexed (NO) Urine Glucose (NEGATIVE) mg/dL Monoscreen NEGATIVE (Negative) 09/17/18 09/17/18 09/17/18 Range/Units 16:08 16:08 16:18 WBC 8.2 (4.0-10.5) K/mm3 RBC 5.22 (4.1-5.6) M/mm3 Hgb 16.0 (12.5-18.0) gm/dl Hct 45.6 (42-50) % MCV 87.4 (78-100) fl MCH 30.7 (26-32) pg MCHC 35.1 (32-36) g/dl RDW 12.9 (11.5-14.0) % Plt Count 190 (150-450) K/mm3 MPV 9.9 H (6-9.5) fl Segmented Neutrophils 44 (36.-66.) % Band Neutrophils 2 (0.0-2.0) % Lymphocytes (Manual) 42 (24-44) % Monocytes (Manual) 6 (0.0-12.0) % Eosinophils (Manual) 6 H (0.00-3.0) % Platelet Estimate NORMAL (NORMAL) RBC Morphology NORMAL D-Dimer < 215 L (215-500) ng/mL Sodium (137-145) mmol/L Potassium (3.5-5.1) mmol/L Chloride (98-107) mmol/L Carbon Dioxide (22-30) mmol/L Anion Gap (5-15) MEQ/L BUN (9-20) mg/dL Creatinine (0.66-1.25) mg/dL Estimated GFR ML/MIN Glucose (74-106) mg/dL Lactic Acid 2.5 H (0.4-2.0) Calcium (8.4-10.2) mg/dL Total Bilirubin (0.2-1.3) mg/dL AST (17-59) U/L ALT (0-50) U/L Alkaline Phosphatase (38-126) U/L Troponin I (0.000-0.034) ng/mL Serum Total Protein (6.3-8.2) g/dL Albumin (3.5-5.0) g/dL Amylase (30-110) U/L Lipase (23-300) U/L Urine Color (YELLOW) Urine Appearance (CLEAR) Urine pH (5-6) Ur Specific [place] (1.005-1.025) Urine Protein (Negative) Urine Ketones (NEGATIVE) Urine Blood (0-5) Brayden/ul Urine Nitrite (NEGATIVE) Urine Bilirubin (NEGATIVE) Urine Urobilinogen (0-1) mg/dL Ur Leukocyte Esterase (NEGATIVE) Urine WBC (Auto) (0-5) /HPF Urine RBC (Auto) (0-2) /HPF U Epithel Cells (Auto) (FEW) /HPF Urine Bacteria (Auto) (NEGATIVE) /HPF Urine Mucus (Auto) (NEGATIVE) /HPF Urine Culture Reflexed (NO) Urine Glucose (NEGATIVE) mg/dL Monoscreen (Negative) 09/17/18 09/17/18 09/17/18 Range/Units 18:07 19:30 19:32 WBC (4.0-10.5) K/mm3 RBC (4.1-5.6) M/mm3 Hgb (12.5-18.0) gm/dl Hct (42-50) % MCV (78-100) fl MCH (26-32) pg MCHC (32-36) g/dl RDW (11.5-14.0) % Plt Count (150-450) K/mm3 MPV (6-9.5) fl Segmented Neutrophils (36.-66.) % Band Neutrophils (0.0-2.0) % Lymphocytes (Manual) (24-44) % Monocytes (Manual) (0.0-12.0) % Eosinophils (Manual) (0.00-3.0) % Platelet Estimate (NORMAL) RBC Morphology D-Dimer (215-500) ng/mL Sodium (137-145) mmol/L Potassium (3.5-5.1) mmol/L Chloride (98-107) mmol/L Carbon Dioxide (22-30) mmol/L Anion Gap (5-15) MEQ/L BUN (9-20) mg/dL Creatinine (0.66-1.25) mg/dL Estimated GFR ML/MIN Glucose (74-106) mg/dL Lactic Acid 2.0 (0.4-2.0) Calcium (8.4-10.2) mg/dL Total Bilirubin (0.2-1.3) mg/dL AST (17-59) U/L ALT (0-50) U/L Alkaline Phosphatase (38-126) U/L Troponin I < 0.012 (0.000-0.034) ng/mL Serum Total Protein (6.3-8.2) g/dL Albumin (3.5-5.0) g/dL Amylase (30-110) U/L Lipase (23-300) U/L Urine Color YELLOW (YELLOW) Urine Appearance CLEAR (CLEAR) Urine pH 5.0 (5-6) Ur Specific [place] 1.013 (1.005-1.025) Urine Protein NEGATIVE (Negative) Urine Ketones NEGATIVE (NEGATIVE) Urine Blood NEGATIVE (0-5) Brayden/ul Urine Nitrite NEGATIVE (NEGATIVE) Urine Bilirubin NEGATIVE (NEGATIVE) Urine Urobilinogen NEGATIVE (0-1) mg/dL Ur Leukocyte Esterase NEGATIVE (NEGATIVE) Urine WBC (Auto) 0-2 (0-5) /HPF Urine RBC (Auto) NONE SEEN (0-2) /HPF U Epithel Cells (Auto) NONE (FEW) /HPF Urine Bacteria (Auto) NONE SEEN (NEGATIVE) /HPF Urine Mucus (Auto) SLIGHT (NEGATIVE) /HPF Urine Culture Reflexed NO (NO) Urine Glucose 50 (NEGATIVE) mg/dL Monoscreen (Negative) 09/18/18 09/18/18 Range/Units 05:13 05:13 WBC 7.8 (4.0-10.5) K/mm3 RBC 4.91 (4.1-5.6) M/mm3 Hgb 15.2 (12.5-18.0) gm/dl Hct 43.6 (42-50) % MCV 88.8 (78-100) fl MCH 31.0 (26-32) pg MCHC 34.9 (32-36) g/dl RDW 13.2 (11.5-14.0) % Plt Count 168 (150-450) K/mm3 MPV 9.8 H (6-9.5) fl Segmented Neutrophils (36.-66.) % Band Neutrophils (0.0-2.0) % Lymphocytes (Manual) (24-44) % Monocytes (Manual) (0.0-12.0) % Eosinophils (Manual) (0.00-3.0) % Platelet Estimate (NORMAL) RBC Morphology D-Dimer (215-500) ng/mL Sodium 136 L (137-145) mmol/L Potassium 4.1 (3.5-5.1) mmol/L Chloride 105 (98-107) mmol/L Carbon Dioxide 24 (22-30) mmol/L Anion Gap 11.4 (5-15) MEQ/L BUN 10 (9-20) mg/dL Creatinine 0.64 L (0.66-1.25) mg/dL Estimated GFR > 60.0 ML/MIN Glucose 293 H (74-106) mg/dL Lactic Acid (0.4-2.0) Calcium 9.0 (8.4-10.2) mg/dL Total Bilirubin 0.70 (0.2-1.3) mg/dL AST 32 (17-59) U/L ALT 48 (0-50) U/L Alkaline Phosphatase 70 (38-126) U/L Troponin I (0.000-0.034) ng/mL Serum Total Protein 7.0 (6.3-8.2) g/dL Albumin 3.8 (3.5-5.0) g/dL Amylase (30-110) U/L Lipase (23-300) U/L Urine Color (YELLOW) Urine Appearance (CLEAR) Urine pH (5-6) Ur Specific [place] (1.005-1.025) Urine Protein (Negative) Urine Ketones (NEGATIVE) Urine Blood (0-5) Brayden/ul Urine Nitrite (NEGATIVE) Urine Bilirubin (NEGATIVE) Urine Urobilinogen (0-1) mg/dL Ur Leukocyte Esterase (NEGATIVE) Urine WBC (Auto) (0-5) /HPF Urine RBC (Auto) (0-2) /HPF U Epithel Cells (Auto) (FEW) /HPF Urine Bacteria (Auto) (NEGATIVE) /HPF Urine Mucus (Auto) (NEGATIVE) /HPF Urine Culture Reflexed (NO) Urine Glucose (NEGATIVE) mg/dL Monoscreen (Negative) Micro Results-Entire Visit: Accuchecks Accucheck Value: 286 - Radiology Exams Ordered Rad Exams-Entire Visit: Radiology Procedures Category Date Time Status ABDOMEN AND PELVIS W/0 CONTRAS [CT] Stat Exams 09/17/18 16:52 Completed CHEST 2 VIEWS (PA AND LAT) Stat Exams 09/17/18 16:09 Completed CHEST WITH CONTRAST [CT] Stat Exams 09/17/18 18:24 Completed - Procedures and Test Procedures and Tests throughout Hospitalization: Therapy Orders & Screens 09/17/18 20:49 Smoking Cessation Education ONCE Comment: Diagnosis: abdominal pain Smoking Status: Current every day smoker How long have you smoked: 30 years Have you smoked in the past 12 months: Yes Approximately how many cigarettes per day: 1.5 PPD Do you dip or chew tobacco: No If,Former Smoker,when did you quit: 09/17/18 21:21 Peak Expiratory Flow Rate ONCE Comment: Reason For Exam: Diagnosis: abdominal pain 09/17/18 21:22 Respiratory Therapy Assessment DAILY Comment: Diagnosis: abdominal pain - Discharge Disposition: Home, Self-Care Condition: Good Prescriptions: Continue Albuterol Sulfate [Albuterol Sulfate Hfa] 8.5 gm IH Q4H PRN PRN PRN Reason: Shortness Of Breath/Wheezing Rivaroxaban 10 mg Tablet [Xarelto 10 mg Tablet] 20 mg PO DAILY Metformin HCl 500 mg [Glucophage 500 MG] 500 mg PO BID Sotalol HCl 80 mg [Betapace 80 MG] 80 mg PO DAILY Simvastatin 40 mg [Zocor 40 mg] 40 mg PO DAILY Additional Instructions: MUST WAIT [address] SCAN TO RESTART METFORMIN Follow up with: DENY LEZAMA [Primary Care Provider] - 1 Week
[2018-09-18 10:28] LABS: ATYPICAL LYMPHS 12 %; Basophil 2 % (0.0-1.0); Eosinophil 7 % (0.00-3.0); Monocyte 5 % (0.0-12.0); Total Cells Counted 100
[2018-09-18 10:29] LABS: Platelet Estimate NORMAL (NORMAL)
[2018-09-18 10:30] LABS: Lymphocytes 38 % (24-44); Neutrophils 36 % (36.-66.)
== END 2018-09-18 09:55 | disposition home or self-care (01) ==
LOC: ED 15:10 → MED SURG 19:17
PROVIDERS: ADMIT Family Medicine; ATTEND Family Medicine
DX: R10.12 Left upper quadrant pain (principal); R91.8 Other nonspecific abnormal finding of lung field; I48.91 Unspecified atrial fibrillation; J44.9 Chronic obstructive pulmonary disease, unspecified; I48.0 Paroxysmal atrial fibrillation; K76.0 Fatty (change of) liver, not elsewhere classified; E78.5 Hyperlipidemia, unspecified
CPT/HCPCS: 36000; 36415; 71046; 71260; 74176; 80053; 81001; 82150; 82164; 82962; 83036; 83605; 83690; 84484; 85025; 85379; 86308; 93005; 94760; 96365; 96374; 96375; 99285; G0378; J2270; J2405

== ENCOUNTER 2019-05-06 13:43 | Emergency (ER) | payer OTHER ==
--- NOTE | 2019-05-06 14:10 | ERPHSYRPT ---
- History of Present Illness Time Seen by Provider: 05/06/19 13:55 Source: patient Exam Limitations: no limitations Patient Subjective Stated Complaint: pt thinks he has poison mel all over his body and his left eye is swollen shut, denies difficulty with breathing or swallowing Triage Nursing Assessment: Pt walked into ther ER, denies pain, scattered rashes over body, denies any other issues at this time Physician History: Pt started c/o itching, rash and swelling of his left face, neck and upper back , shoulders since yesterday. He was unable to open his left eye this morning and it made him concerned. He denies other complaints, no throat swelling, difficulty breathing, vomiting, headaches, fever. He forgot to take his Metformin this morning. Timing/Duration: yesterday Quality: burning, itchy Severity: moderate Location: face, neck Possible Causes: no cause identified Modifying Factors: Improves With: other (denies using anything yet.) Associated Symptoms: hives Allergies/Adverse Reactions: venom-honey bee Allergy (Verified 04/29/18 17:30) Home Medications: Albuterol Sulfate [Albuterol Sulfate Hfa] 8.5 gm IH Q4H PRN PRN 10/13/16 [ History] Rivaroxaban 10 mg Tablet [Xarelto 10 mg Tablet] 20 mg PO DAILY 12/13/16 [ History] Metformin HCl 500 mg [Glucophage 500 MG] 500 mg PO BID 05/12/17 [History] Simvastatin 40 mg [Zocor 40 mg] 40 mg PO DAILY 09/17/18 [History] Sotalol HCl 80 mg [Betapace 80 MG] 80 mg PO DAILY 09/17/18 [History] Hx Tetanus, Diphtheria Vaccination/Date Given: Yes Hx Influenza Vaccination/Date Given: No Hx Pneumococcal Vaccination/Date Given: No - Review of Systems Constitutional: No Symptoms Eyes: Other (left upper and lower eyelid swelling.) Respiratory: No Symptoms Cardiac: No Symptoms Abdominal/Gastrointestinal: No Symptoms Musculoskeletal: No Symptoms Skin: Pruritis, Rash Neurological: No Symptoms All Other Systems: Reviewed and Negative - Past Medical History Pertinent Past Medical History: Yes Neurological History: No Pertinent History ENT History: No Pertinent History Cardiac History: Arrhythmia, High Cholesterol, Hypertension, Peripheral Vascular Disease Respiratory History: COPD Endocrine Medical History: Diabetes Type II Musculoskeletal History: No Pertinent History GI Medical History: No Pertinent History History: No Pertinent History Psycho-Social History: No Pertinent History Male Reproductive Disorders: No Pertinent History Other Medical History: pilonidal cyst- removed - Past Surgical History Past Surgical History: Yes Neuro Surgical History: No Pertinent History Cardiac: No Pertinent History Respiratory: No Pertinent History Gastrointestinal: No Pertinent History Genitourinary: No Pertinent History Musculoskeletal: Other Male Surgical History: No Pertinent History Other Surgical History: carpal tunnel surgery, tooth extractions, pilonidal cyst removed - Social History Smoking Status: Current every day smoker How long have you smoked: 30 years Exposure to second hand smoke: Yes Alcohol Use: Socially Drug Use: none Patient Lives Alone: No Significant Family History: diabetes, hypertension - Nursing Vital Signs Nursing Vital Signs: Initial Vital Signs Temperature 99.1 F 05/06/19 13:47 Pulse Rate 87 05/06/19 13:47 Blood Pressure 144/91 05/06/19 13:47 O2 Sat by Pulse Oximetry 97 05/06/19 13:47 Pain Scale Pain Intensity 0 - Physical Exam General Appearance: no apparent distress Eye Exam: PERRL/EOMI, other (left upper and lower eyelid swelling, but able to pry his eyes open. no sign of conjunctival edema, swelling, or redness, no corneal changes either.) Ears, Nose, Throat Exam: normal ENT inspection, pharynx normal, moist mucous membranes Neck Exam: normal inspection, non-tender, supple, No JVD Respiratory Exam: normal breath sounds, lungs clear, airway intact Cardiovascular Exam: regular rate/rhythm, normal heart sounds, normal peripheral pulses, No murmur Gastrointestinal/Abdomen Exam: soft Back Exam: normal inspection Extremity Exam: normal inspection Neurologic Exam: alert, oriented x 3, normal mood/affect Skin Exam: normal color, warm, dry, rash, other (typical papular, vesicular exanthems in linear and patchy arrangements on the left face and neck, upper torso. No severe edema or other lesions.), No cyanosis, No laceration Lymphatic Exam: No adenopathy SpO2 Interpretation: normal SpO2: 97 O2 Delivery: Room Air - Course Nursing assessment & vital signs reviewed: Yes EKG Interpreted by Me: RATE (72/min), NORMAL AXIS, NORMAL INTERVALS, NORMAL QRS , Non-specific ST Changes, Other (Repeat Ek:36 PM: unchanged.) Ordered Tests: Active Orders 24 hr Category Date Time Status ACCUCHECK [Accucheck] STAT Care 05/06/19 14:03 Active Purchasing Agent STAT Care 05/06/19 15:30 Active EKG-ER Only STAT Care 05/06/19 15:30 Active EKG-ER Only STAT Care 05/06/19 16:46 Active IV Insertion STAT Care 05/06/19 14:47 Active CHEST 1 VIEW (PORTABLE) Stat Exams 05/06/19 16:01 Taken BMP Stat Lab 05/06/19 15:08 Completed CBC W DIFF Stat Lab 05/06/19 15:08 Completed CK-Creatinine Phosphokinase Stat Lab 05/06/19 14:50 Completed Glucose Stat Lab 05/06/19 17:17 Completed MAGNESIUM Stat Lab 05/06/19 14:50 Completed NT PRO BNP Stat Lab 05/06/19 14:50 Completed TROPONIN Q3H Lab 05/06/19 14:50 Completed TROPONIN Q3H Lab 05/06/19 17:17 Completed TROPONIN Q3H Lab 05/06/19 18:30 Ordered TROPONIN Q3H Lab 05/06/19 20:00 Ordered TROPONIN Q3H Lab 05/06/19 21:30 Ordered TROPONIN Q3H Lab 05/06/19 23:00 Ordered TROPONIN Q3H Lab 05/07/19 00:30 Ordered TROPONIN Q3H Lab 05/07/19 03:30 Ordered UA W/RFX UR CULTURE Stat Lab 05/06/19 15:08 Completed Urine Triage Profile Stat Lab 05/06/19 15:08 Completed Medication Summary Discontinued Medications Generic Name Dose Route Start Last Admin Trade Name Freq PRN Reason Stop Dose Admin Sodium Chloride 1,000 mls @ 999 mls/hr 05/06/19 14:47 05/06/19 16:30 Sodium Chloride 0.9% 1000 Ml IV 05/06/19 15:47 Infused .Q1H1M STA Infusion Insulin Human Regular 5 unit 05/06/19 14:49 05/06/19 15:22 Novolin R IV 05/06/19 14:50 5 unit STAT ONE Administration Methylprednisolone Sodium Succinate 125 mg 05/06/19 14:29 05/06/19 14:40 Solu-Medrol 125 Mg IM 05/06/19 14:30 125 mg STAT ONE Administration Methylprednisolone Sodium Succinate Confirm 05/06/19 14:32 Solu-Medrol 125 Mg Administered 05/06/19 14:33 Dose 125 mg .ROUTE .STK-MED ONE Lab/Rad Data: Laboratory Result Diagrams 05/06/19 15:08 05/06/19 15:08 Laboratory Results 05/06/19 05/06/19 05/06/19 Range/Units 17:17 17:17 15:08 WBC (4.0-10.5) K/mm3 RBC (4.1-5.6) M/mm3 Hgb (12.5-18.0) gm/dl Hct (42-50) % MCV (78-100) fl MCH (26-32) pg MCHC (32-36) g/dl RDW (11.5-14.0) % Plt Count (150-450) K/mm3 MPV (6-9.5) fl Gran % (36.0-66.0) % Eos # (Auto) (0-0.5) Absolute Lymphs (auto) (1.0-4.6) Absolute Monos (auto) (0.0-1.3) Lymphocytes % (24.0-44.0) % Monocytes % (0.0-12.0) % Eosinophils % (0.00-5.0) % Basophils % (0.0-0.4) % Absolute Granulocytes (1.4-6.9) Basophils # (0-0.4) Sodium (137-145) mmol/L Potassium (3.5-5.1) mmol/L Chloride (98-107) mmol/L Carbon Dioxide (22-30) mmol/L Anion Gap (5-15) MEQ/L BUN (9-20) mg/dL Creatinine (0.66-1.25) mg/dL Estimated GFR ML/MIN Glucose 311 H (74-106) mg/dL Calcium (8.4-10.2) mg/dL Magnesium (1.6-2.3) mg/dL Creatine Kinase (55-170) U/L Troponin I < 0.012 (0.000-0.034) ng/mL NT-Pro-B Natriuret Pep (0-450) pg/mL Urine Color (YELLOW) Urine Appearance (CLEAR) Urine pH (5-6) Ur Specific [place] (1.005-1.025) Urine Protein (Negative) Urine Ketones (NEGATIVE) Urine Blood (0-5) Brayden/ul Urine Nitrite (NEGATIVE) Urine Bilirubin (NEGATIVE) Urine Urobilinogen (0-1) mg/dL Ur Leukocyte Esterase (NEGATIVE) Urine WBC (Auto) (0-5) /HPF Urine RBC (Auto) (0-2) /HPF U Epithel Cells (Auto) (FEW) /HPF Urine Bacteria (Auto) (NEGATIVE) /HPF Urine Mucus (Auto) (NEGATIVE) /HPF Urine Culture Reflexed (NO) Urine Glucose (NEGATIVE) mg/dL Urine Opiates Level NEGATIVE (NEGATIVE) Ur Methadone NEGATIVE (NEGATIVE) Urine Barbiturates NEGATIVE (NEGATIVE) Ur Phencyclidine (PCP) NEGATIVE (NEGATIVE) Urine Amphetamine NEGATIVE (NEGATIVE) U Benzodiazepine Level NEGATIVE (NEGATIVE) Urine Cocaine NEGATIVE (NEGATIVE) Urine Marijuana (THC) NEGATIVE (NEGATIVE) 05/06/19 05/06/19 05/06/19 Range/Units 15:08 15:08 15:08 WBC 8.4 (4.0-10.5) K/mm3 RBC 4.62 (4.1-5.6) M/mm3 Hgb 14.9 (12.5-18.0) gm/dl Hct 41.6 L (42-50) % MCV 90.0 (78-100) fl MCH 32.3 H (26-32) pg MCHC 35.8 (32-36) g/dl RDW 13.3 (11.5-14.0) % Plt Count 158 (150-450) K/mm3 MPV 9.8 H (6-9.5) fl Gran % 48.1 (36.0-66.0) % Eos # (Auto) 0.64 H (0-0.5) Absolute Lymphs (auto) 2.93 (1.0-4.6) Absolute Monos (auto) 0.77 (0.0-1.3) Lymphocytes % 34.9 (24.0-44.0) % Monocytes % 9.2 (0.0-12.0) % Eosinophils % 7.6 H (0.00-5.0) % Basophils % 0.2 (0.0-0.4) % Absolute Granulocytes 4.03 (1.4-6.9) Basophils # 0.02 (0-0.4) Sodium 137 (137-145) mmol/L Potassium 3.9 (3.5-5.1) mmol/L Chloride 103 (98-107) mmol/L Carbon Dioxide 25 (22-30) mmol/L Anion Gap 13.9 (5-15) MEQ/L BUN 10 (9-20) mg/dL Creatinine 0.74 (0.66-1.25) mg/dL Estimated GFR > 60.0 ML/MIN Glucose 336 H (74-106) mg/dL Calcium 9.4 (8.4-10.2) mg/dL Magnesium (1.6-2.3) mg/dL Creatine Kinase (55-170) U/L Troponin I (0.000-0.034) ng/mL NT-Pro-B Natriuret Pep (0-450) pg/mL Urine Color YELLOW (YELLOW) Urine Appearance CLEAR (CLEAR) Urine pH 5.0 (5-6) Ur Specific [place] 1.031 (1.005-1.025) Urine Protein NEGATIVE (Negative) Urine Ketones TRACE (NEGATIVE) Urine Blood NEGATIVE (0-5) Brayden/ul Urine Nitrite NEGATIVE (NEGATIVE) Urine Bilirubin NEGATIVE (NEGATIVE) Urine Urobilinogen NEGATIVE (0-1) mg/dL Ur Leukocyte Esterase NEGATIVE (NEGATIVE) Urine WBC (Auto) NONE (0-5) /HPF Urine RBC (Auto) NONE (0-2) /HPF U Epithel Cells (Auto) NONE (FEW) /HPF Urine Bacteria (Auto) NONE (NEGATIVE) /HPF Urine Mucus (Auto) SLIGHT (NEGATIVE) /HPF Urine Culture Reflexed NO (NO) Urine Glucose >=500 (NEGATIVE) mg/dL Urine Opiates Level (NEGATIVE) Ur Methadone (NEGATIVE) Urine Barbiturates (NEGATIVE) Ur Phencyclidine (PCP) (NEGATIVE) Urine Amphetamine (NEGATIVE) U Benzodiazepine Level (NEGATIVE) Urine Cocaine (NEGATIVE) Urine Marijuana (THC) (NEGATIVE) 05/06/19 05/06/19 Range/Units 14:50 14:50 WBC (4.0-10.5) K/mm3 RBC (4.1-5.6) M/mm3 Hgb (12.5-18.0) gm/dl Hct (42-50) % MCV (78-100) fl MCH (26-32) pg MCHC (32-36) g/dl RDW (11.5-14.0) % Plt Count (150-450) K/mm3 MPV (6-9.5) fl Gran % (36.0-66.0) % Eos # (Auto) (0-0.5) Absolute Lymphs (auto) (1.0-4.6) Absolute Monos (auto) (0.0-1.3) Lymphocytes % (24.0-44.0) % Monocytes % (0.0-12.0) % Eosinophils % (0.00-5.0) % Basophils % (0.0-0.4) % Absolute Granulocytes (1.4-6.9) Basophils # (0-0.4) Sodium (137-145) mmol/L Potassium (3.5-5.1) mmol/L Chloride (98-107) mmol/L Carbon Dioxide (22-30) mmol/L Anion Gap (5-15) MEQ/L BUN (9-20) mg/dL Creatinine (0.66-1.25) mg/dL Estimated GFR ML/MIN Glucose (74-106) mg/dL Calcium (8.4-10.2) mg/dL Magnesium 1.7 (1.6-2.3) mg/dL Creatine Kinase 87 (55-170) U/L Troponin I < 0.012 (0.000-0.034) ng/mL NT-Pro-B Natriuret Pep 28.3 (0-450) pg/mL Urine Color (YELLOW) Urine Appearance (CLEAR) Urine pH (5-6) Ur Specific [place] (1.005-1.025) Urine Protein (Negative) Urine Ketones (NEGATIVE) Urine Blood (0-5) B[place]/ul Urine Nitrite (NEGATIVE) Urine Bilirubin (NEGATIVE) Urine Urobilinogen (0-1) mg/dL Ur Leukocyte Esterase (NEGATIVE) Urine WBC (Auto) (0-5) /HPF Urine RBC (Auto) (0-2) /HPF U Epithel Cells (Auto) (FEW) /HPF Urine Bacteria (Auto) (NEGATIVE) /HPF Urine Mucus (Auto) (NEGATIVE) /HPF Urine Culture Reflexed (NO) Urine Glucose (NEGATIVE) mg/dL Urine Opiates Level (NEGATIVE) Ur Methadone (NEGATIVE) Urine Barbiturates (NEGATIVE) Ur Phencyclidine (PCP) (NEGATIVE) Urine Amphetamine (NEGATIVE) U Benzodiazepine Level (NEGATIVE) Urine Cocaine (NEGATIVE) Urine Marijuana (THC) (NEGATIVE) - Progress Progress: unchanged Progress Note: 05/06/19 14:45 His Accucheck is 373, he was given Metformin 500 mg po, and 125 mg Solu-Medrol IM, discharged hometo rest x 2-3 days, drink plenty of fluids, and continue Metformin as directed BID, start Medrol dosepak, and follow up with his physician in 2-3 days, frequently check his blood sugar. He started c/o chest pressure, labs reviewed: Ekg (repeated) unchanged, no sign of ischemia, repeat troponin, patient has been pain free, asymptomatic, will discharge home to rest, m drink plenty of fluids,repeat blood glucose is 311 after IV saline bolus and 5 units of IV Insulin. 05/06/19 17:57 Counseled pt/family regarding: lab results, diagnosis, need for follow-up - Departure Departure Disposition: Home Clinical Impression: Poison mel dermatitis, Hyperglycemia Chest pain Qualifiers: Chest pain type: unspecified Qualified Code(s): R07.9 - Chest pain, unspecified Condition: Stable Critical Care Time: No Referrals: DENY LEZAMA [Primary Care Provider] - Instructions: Hyperglycemia, Adult (DC), Poison Mel, Poison [place], Poison [place] ( DC) Additional Instructions: Rest x 2-3 days, drink plenty of fluids, and follow up with your physician in 2- 3 days, return if severe swelling, difficulty breathing, vomiting, chest pain! Prescriptions: Methylprednisolone Packet [Medrol Dosepack] 4 mg PO UD #1 packet
[2019-05-06] MEDS ORDERED: solu-MEDROL 125 MG IM ONE (14:29)
[2019-05-06] MEDS ORDERED: solu-MEDROL 125 MG ONE (14:32)
[2019-05-06] MEDS ORDERED: Sodium Chloride 0.9% 1000 ML 1,000 ML IV STA (14:47)
[2019-05-06] MEDS ORDERED: NovoLIN R IV ONE (14:49)
[2019-05-06 15:23] LABS: ANION GAP 13.9 MEQ/L (5-15); BLOOD UREA NITROGEN 10 mg/dL (9-20); CHLORIDE 103 mmol/L (98-107); Calcium 9.4 mg/dL (8.4-10.2); Carbon Dioxide 25 mmol/L (22-30); Creatinine 1 0.74 mg/dL (0.66-1.25); Glucose 336 mg/dL (74-106); Potassium 3.9 mmol/L (3.5-5.1); SODIUM 137 mmol/L (137-145)
[2019-05-06 15:25] LABS: Appearance CLEAR (CLEAR); BASOPHIL % 0.2 % (0.0-0.4); Basophil (Absolute #) 0.02 (0-0.4); Bilirubin NEGATIVE (NEGATIVE); Blood NEGATIVE Ery/ul (0-5); Eosinophil % 7.6 % (0.00-5.0); Eosinophil (Absolute #) 0.64 (0-0.5); Glucose >=500 mg/dL (NEGATIVE); Granulocyte Absolute (ANC) 4.03 (1.4-6.9); Granulocytes % 48.1 % (36.0-66.0); Hematocrit 41.6 % (42-50); Hemoglobin 14.9 gm/dl (12.5-18.0); Ketones TRACE (NEGATIVE); Leukocyte Esterase NEGATIVE (NEGATIVE); Lymphocyte (Absolute #) 2.93 (1.0-4.6); Lymphocytes % 34.9 % (24.0-44.0); Mean Corpuscular Hemoglobin 32.3 pg (26-32); Mean Corpuscular Hgb Concent. 35.8 g/dl (32-36); Mean Platelet Volume 9.8 fl (6-9.5); Monocyte (Absolute #) 0.77 (0.0-1.3); Monocytes % 9.2 % (0.0-12.0); Mucus SLIGHT /HPF (NEGATIVE); Nitrite NEGATIVE (NEGATIVE); Platelet Count 158 K/mm3 (150-450); Protein,Urine Dip NEGATIVE (Negative); Red Blood Count 4.62 M/mm3 (4.1-5.6); Red Cell Distribution Width 13.3 % (11.5-14.0); Specific Gravity 1.031 (1.005-1.025); Urobilinogen NEGATIVE mg/dL (0-1); White Blood Count 8.4 K/mm3 (4.0-10.5)
[2019-05-06 15:37] LABS: Amphetamine,Urine NEGATIVE (NEGATIVE); Barbiturate,Urine NEGATIVE (NEGATIVE); Benzodiazepine,Urine NEGATIVE (NEGATIVE); Cocaine,Urine NEGATIVE (NEGATIVE); Methadone,Urine NEGATIVE (NEGATIVE); Opiate,Urine NEGATIVE (NEGATIVE); PCP,Urine NEGATIVE (NEGATIVE); THC,Urine NEGATIVE (NEGATIVE)
[2019-05-06 15:50] LABS: MAGNESIUM 1.7 mg/dL (1.6-2.3); NT PRO BNP 28.3 pg/mL (0-450)
[2019-05-06 18:11] VITALS: BP 107/76; PULSE 73; O2SAT 98
--- NOTE | 2019-05-06 21:55 | XRAY ---
Indication: Chest pressure. Portion iona reaction. Comparison: September 17, 2018. Portable chest again demonstrates normal heart, lungs, and bony thorax with a few tiny calcified granulomas.
== END 2019-05-06 18:17 | disposition home or self-care (01) ==
LOC: ED 13:43
DX: L23.7 Allergic contact dermatitis due to plants, except food (principal); E11.65 Type 2 diabetes mellitus with hyperglycemia; Z79.4 Long term (current) use of insulin; E78.00 Pure hypercholesterolemia, unspecified; R07.9 Chest pain, unspecified; I10 Essential (primary) hypertension; I73.9 Peripheral vascular disease, unspecified; J44.9 Chronic obstructive pulmonary disease, unspecified; Z79.01 Long term (current) use of anticoagulants; Z79.899 Other long term (current) drug therapy
CPT/HCPCS: 36000; 36415; 71045; 80048; 80307; 81001; 82550; 82947; 82962; 83735; 83880; 84484; 85025; 93005; 93041; 96360; 96372; 96374; 99285; J2930; A9270-GY

== ENCOUNTER 2020-09-15 04:57 | Emergency (ER) | payer OTHER ==
[2020-09-15] MEDS ORDERED: Sodium Chloride 0.9% 1000 ML 1,000 ML IV STA ×2 (05:36→07:25)
[2020-09-15] MEDS ORDERED: BABY ASPIRIN 81 MG CHEW PO ONE (05:36)
[2020-09-15] MEDS ORDERED: Pepcid 20 MG VIAL IV ONE ×2 (05:36→05:52)
[2020-09-15] MEDS ORDERED: Zofran 4 MG/2 ML VIAL IV ONE (05:36)
[2020-09-15] MEDS ORDERED: MORPHINE SULFATE 4 MG INJ IV ONE (05:36)
[2020-09-15] MEDS ORDERED: GI COCKTAIL 45 ML (Maalox/Lidocaine) PO ONE (05:38)
--- NOTE | 2020-09-15 05:42 | ERPHSYRPT ---
<ALISON KLEIN - Last Filed: 09/15/20 06:47> - History of Present Illness Time Seen by Provider: 09/15/20 05:26 Historian: patient Exam Limitations: no limitations Patient Subjective Stated Complaint: pt states after eating turkey, he began having chest pain. states he thinks he may have swallowed a bone and got it stuck Triage Nursing Assessment: pt alert and oreinted, answers questions approp. pt arrive per ambulance, ambulates to stretcher with no assist. steady gait noted. respiration nonlabored, heart rate 83 on monitor, sinus rhytm. skin pink warm and dry. Physician History: 40 years old male with history of poorly controlled diabetes mellitus, paroxysmal atrial fibrillation on sotalol/Xarelto, chronic back pain, COPD presented in the ER with chief complaint of sudden onset midsternal chest pain around 4 AM today while he was eating turkey. Patient reports he does not chew very well and might have swallowed a piece of bone. Reports sudden onset stabbing pain lasting for almost a minute followed by nausea/dry heaving and couple of episodes of vomiting which had some blood in it. No shortness of breath but still have chest pain rates 5/10 intensity, sharp in nature without any significant aggravating or relieving factors. Denies any fever or chills. No cough. Patient does drink regularly small amount and smokes tobacco but denies any history of GERD/esophagitis. Timing/Duration: hour(s) (1), sudden Activities at Onset: rest Quality: sharpness, stabbing Location: central Chest Pain Radiation: no radiation Severity of Pain-Max: moderate Severity of Pain-Current: moderate Modifying Factors: Worsens With: coughing, eating Associated Symptoms: nausea, vomiting, heartburn, No palpitations, No abdominal pain, No shortness of breath Prior Chest Pain/Cardiac Workup: no prior chest pain Nitro Today/Relief: no nitro taken today Aspirin Treatment Today: no aspirin today Allergies/Adverse Reactions: corn Allergy (Mild, Verified 09/15/20 05:38) egg Allergy (Mild, Verified 09/15/20 05:38) mold Allergy (Mild, Verified 09/15/20 05:38) peanut Allergy (Mild, Verified 09/15/20 05:38) soybean Allergy (Mild, Verified 09/15/20 05:38) tomato Allergy (Mild, Verified 09/15/20 05:38) wheat Allergy (Mild, Verified 09/15/20 05:38) shrimp Allergy (Verified 09/15/20 05:38) venom-honey bee Allergy (Verified 04/29/18 17:30) aspirin Adverse Reaction (Intermediate, Verified 09/15/20 06:37) Headache lobster Allergy (Uncoded 09/15/20 05:38) Home Medications: Albuterol Sulfate [Albuterol Sulfate Hfa] 8.5 gm IH Q4H PRN PRN 10/13/16 [History] Rivaroxaban 10 mg Tablet [Xarelto 10 mg Tablet] 20 mg PO DAILY 12/13/16 [History] Metformin HCl 500 mg [Glucophage 500 MG] 250 mg PO BID 05/12/17 [History] Simvastatin 40 mg [Zocor 40 mg] 40 mg PO DAILY 09/17/18 [History] Sotalol HCl 80 mg [Betapace 80 MG] 80 mg PO DAILY 09/17/18 [History] Fluticasone/Umeclidin/Vilanter [Trelegy Ellipta 100-62.5-25] 1 each IH DAILY 09/15/20 [History] Glipizide Xl 10 mg [Glucotrol Xl 10 MG] 10 mg PO DAILY 09/15/20 [History] Hx Tetanus, Diphtheria Vaccination/Date Given: Yes Hx Influenza Vaccination/Date Given: No Hx Pneumococcal Vaccination/Date Given: No Immunizations Up to Date: Yes Travel Risk - International Travel Have you traveled outside of the country in past 3 weeks: No - Coronavirus Screening Are you exhibiting any of the following symptoms?: No Close contact with a COVID-19 positive Pt in past 14-21 Days: No - Review of Systems Constitutional: No Symptoms Eyes: No Symptoms Ears, Nose, & Throat: No Symptoms Respiratory: Cough Cardiac: Chest Pain Abdominal/Gastrointestinal: Nausea, Melena Genitourinary Symptoms: No Symptoms, Penile Discharge Musculoskeletal: Back Pain Skin: No Symptoms Neurological: No Symptoms Psychological: No Symptoms Endocrine: Polydipsia Hematologic/Lymphatic: No Symptoms Immunological/Allergic: No Symptoms - Past Medical History Pertinent Past Medical History: Yes Neurological History: No Pertinent History ENT History: No Pertinent History Cardiac History: Arrhythmia, High Cholesterol, Hypertension, Peripheral Vascular Disease Respiratory History: COPD, Emphysema Endocrine Medical History: Diabetes Type II Musculoskeletal History: No Pertinent History GI Medical History: No Pertinent History History: No Pertinent History Psycho-Social History: No Pertinent History Male Reproductive Disorders: No Pertinent History Other Medical History: pilonidal cyst- removed - Past Surgical History Past Surgical History: Yes Neuro Surgical History: No Pertinent History Cardiac: No Pertinent History Respiratory: No Pertinent History Gastrointestinal: No Pertinent History Genitourinary: No Pertinent History Musculoskeletal: Other Male Surgical History: No Pertinent History Other Surgical History: carpal tunnel surgery, tooth extractions, pilonidal cyst removed - Social History Smoking Status: Current every day smoker How long have you smoked: 32 years Exposure to second hand smoke: Yes Alcohol Use: Socially Drug Use: none Patient Lives Alone: No Significant Family History: diabetes, hypertension - Physical Exam General Appearance: no apparent distress Eye Exam: PERRL/EOMI, eyes nml inspection Ears, Nose, Throat Exam: normal ENT inspection, TMs normal, pharyngeal erythema Neck Exam: normal inspection, non-tender, supple, full range of motion Respiratory Exam: normal breath sounds, lungs clear Cardiovascular Exam: regular rate/rhythm, normal heart sounds Gastrointestinal/Abdomen Exam: soft, normal bowel sounds, No tenderness Back Exam: normal inspection, normal range of motion Extremity Exam: normal inspection, normal range of motion, pelvis stable Neurologic Exam: alert, oriented x 3, cooperative, art editor II-XII nml as tested Skin Exam: normal color SpO2 Interpretation: normal SpO2: 98 O2 Delivery: Room Air - Course EKG Interpreted by Me: RATE (81), Sinus Rhythm, NORMAL AXIS, NORMAL INTERVALS, NORMAL QRS - Progress Progress: improved Air Movement: good Progress Note: 09/15/20 06:47 40 years old is evaluated for sudden onset chest pain. EKG showed sinus rhythm with no acute ST elevations or depressions. Negative initial troponins. I have obtained x-rays which did not show any foreign body, obvious pneumonia or any other acute findings when reviewed by me. I have obtained CT chest without contrast as patient is allergic to contrast dye which is negative for any foreign body but has multiple nodules/granulomatous disease which is probably not the reason for today's chest pain and patient will follow up outpatient with his primary care for that. Blood sugar was sent 400s with mild elevation in gap and mildly low bicarb, given fluid and insulin. Urinalysis is pending. Patient is given morphine for pain which helped but pain is not completely resolved. Patient has multiple risk factor for CAD, will obtain second troponin, if negative patient would be discharged with outpatient cardiology follow-up. At this point care is transferred to Dr. Lockett at shift change for final disposition. Blood Culture(s) Obtained: No Antibiotics given: No Counseled pt/family regarding: lab results, diagnosis, rad results - Departure Clinical Impression: Hyperglycemia, Chest pain, non-cardiac Condition: Stable Critical Care Time: No Referrals: DENY CARRANZA [Primary Care Provider] - (1-2 days for reevaluation) Additional Instructions: Take your medication as prescribed. Follow-up with a cardiac catheterization technologist as an outpatient as well as your primary care physician. <NAYELI LOCKETT - Last Filed: 09/15/20 09:03> - Nursing Vital Signs Nursing Vital Signs: Initial Vital Signs Temperature 98.3 F 09/15/20 04:59 Pulse Rate 82 09/15/20 04:59 Respiratory Rate 18 09/15/20 04:59 Blood Pressure 162/104 09/15/20 04:59 O2 Sat by Pulse Oximetry 98 09/15/20 04:59 Pain Scale Pain Intensity 0 Ordered Tests: Active Orders 24 hr Category Date Time Status Registered Nurses STAT Care 09/15/20 05:37 Active EKG-ER Only STAT Care 09/15/20 05:36 Active IV Insertion STAT Care 09/15/20 05:36 Active CHEST 2 VIEWS (PA AND LAT) Stat Exams 09/15/20 05:17 Completed CHEST WITHOUT CONTRAST [CT] Stat Exams 09/15/20 05:39 Completed CBC W DIFF Stat Lab 09/15/20 05:00 Completed CMP Stat Lab 09/15/20 05:00 Completed ETHYL ALCOHOL Routine Lab 09/15/20 05:00 Completed Manual Differential NC Stat Lab 09/15/20 05:00 Completed NT PRO BNP Stat Lab 09/15/20 05:00 Completed POCT GLUCOSE Stat Lab 09/15/20 07:33 Completed POCT GLUCOSE Stat Lab 09/15/20 08:25 Completed TROPONIN Q3H Lab 09/15/20 05:00 Completed TROPONIN Q3H Lab 09/15/20 08:34 Received TROPONIN Q3H Lab 09/15/20 11:45 Ordered TROPONIN Q3H Lab 09/15/20 14:45 Ordered TROPONIN Q3H Lab 09/15/20 17:45 Ordered UA W/RFX UR CULTURE Stat Lab 09/15/20 06:32 Completed Medication Summary Discontinued Medications Generic Name Dose Route Start Last Admin Trade Name Claudio PRN Reason Stop Dose Admin Al Hydrox/Mg Hydrox/Simethicone Confirm 09/15/20 06:00 Maalox Es 30 Ml Unit Dose Administered 09/15/20 06:01 Dose 30 ml .ROUTE .STK-MED ONE Aspirin 324 mg 09/15/20 05:36 09/15/20 06:12 Baby Aspirin 81 Mg Chew PO 09/15/20 05:37 Not Given STAT ONE Famotidine 20 mg 09/15/20 05:36 09/15/20 06:01 Pepcid 20 Mg Vial IV 09/15/20 05:37 20 mg STAT ONE Administration Famotidine Confirm 09/15/20 05:52 Pepcid 20 Mg Vial Administered 09/15/20 05:53 Dose 20 mg IV .STK-MED ONE Sodium Chloride 1,000 mls @ 999 mls/hr 09/15/20 05:36 09/15/20 07:03 Sodium Chloride 0.9% 1000 Ml IV 09/15/20 06:36 Infused .Q1H1M STA Infusion Sodium Chloride Confirm 09/15/20 05:53 Sodium Chloride 0.9% 1000 Ml Administered 09/15/20 05:54 Dose 1,000 mls @ ud .ROUTE .STK-MED ONE Sodium Chloride 1,000 mls @ 999 mls/hr 09/15/20 07:25 09/15/20 07:32 Sodium Chloride 0.9% 1000 Ml IV 09/15/20 08:25 999 mls/hr .Q1H1M STA Administration Sodium Chloride Confirm 09/15/20 07:31 Sodium Chloride 0.9% 1000 Ml Administered 09/15/20 07:32 Dose 1,000 mls @ ud .ROUTE .STK-MED ONE Insulin Human Regular 10 unit 09/15/20 06:26 09/15/20 06:35 Humulin R IV 09/15/20 06:27 10 unit STAT ONE Administration Insulin Human Regular Confirm 09/15/20 06:35 Humulin R Administered 09/15/20 06:36 Dose 10 unit .ROUTE .STK-MED ONE Lidocaine HCl Confirm 09/15/20 06:00 Xylocaine Hcl Viscous * Administered 09/15/20 06:01 Dose 15 ml .ROUTE .STK-MED ONE Magnesium Hydroxide 45 ml 09/15/20 05:38 09/15/20 06:01 Gi Cocktail 45 Ml (Maalox/Lidocaine) PO 09/15/20 05:39 45 ml STAT ONE Administration Morphine Sulfate 4 mg 09/15/20 05:36 09/15/20 06:01 Morphine Sulfate 4 Mg Inj IV 09/15/20 05:37 4 mg STAT ONE Administration Morphine Sulfate Confirm 09/15/20 05:53 Morphine Sulfate 4 Mg Inj Administered 09/15/20 05:54 Dose 4 mg .ROUTE .STK-MED ONE Ondansetron HCl 4 mg 09/15/20 05:36 09/15/20 06:00 Zofran 4 Mg/2 Ml Vial IV 09/15/20 05:37 4 mg STAT ONE Administration Ondansetron HCl Confirm 09/15/20 05:52 Zofran 4 Mg/2 Ml Vial Administered 09/15/20 05:53 Dose 4 mg .ROUTE .[facility]-MED ONE Lab/Rad Data: Laboratory Result Diagrams 09/15/20 05:00 09/15/20 05:00 Laboratory Results 09/15/20 09/15/20 09/15/20 Range/Units 08:25 07:33 06:32 WBC (4.0-10.5) K/mm3 RBC (4.1-5.6) M/mm3 Hgb (12.5-18.0) gm/dl Hct (42-50) % MCV (78-100) fl MCH (26-32) pg MCHC (32-36) g/dl RDW (11.5-14.0) % Plt Count (150-450) K/mm3 MPV (7.5-11.0) fl Segmented Neutrophils (36.-66.) % Band Neutrophils (0.0-2.0) % Lymphocytes (Manual) (24-44) % Monocytes (Manual) (0.0-12.0) % Eosinophils (Manual) (0.00-3.0) % Basophils (Manual) (0.0-1.0) % Atypical Lymphocytes % Platelet Estimate (NORMAL) RBC Morphology Sodium (137-145) mmol/L Potassium (3.5-5.1) mmol/L Chloride (98-107) mmol/L Carbon Dioxide (22-30) mmol/L Anion Gap (5-15) MEQ/L BUN (9-20) mg/dL Creatinine (0.66-1.25) mg/dL Estimated GFR ML/MIN Glucose (74-106) mg/dL POC Glucometer 262 H 269 H (74 to 106) mg/dL Calcium (8.4-10.2) mg/dL Total Bilirubin (0.2-1.3) mg/dL AST (17-59) U/L ALT (0-50) U/L Alkaline Phosphatase (38-126) U/L Troponin I (0.000-0.034) ng/mL NT-Pro-B Natriuret Pep (0-450) pg/mL Serum Total Protein (6.3-8.2) g/dL Albumin (3.5-5.0) g/dL Urine Color YELLOW (YELLOW) Urine Appearance CLEAR (CLEAR) Urine pH 5.0 (5-6) Ur Specific [employer] 1.030 (1.005-1.025) Urine Protein NEGATIVE (Negative) Urine Ketones TRACE (NEGATIVE) Urine Blood NEGATIVE (0-5) Brayden/ul Urine Nitrite NEGATIVE (NEGATIVE) Urine Bilirubin NEGATIVE (NEGATIVE) Urine Urobilinogen NEGATIVE (0-1) mg/dL Ur Leukocyte Esterase NEGATIVE (NEGATIVE) Urine WBC (Auto) NONE (0-5) /HPF Urine RBC (Auto) NONE (0-2) /HPF U Epithel Cells (Auto) NONE (FEW) /HPF Urine Bacteria (Auto) NONE (NEGATIVE) /HPF Urine Mucus (Auto) SLIGHT (NEGATIVE) /HPF Urine Culture Reflexed NO (NO) Urine Glucose >=500 (NEGATIVE) mg/dL Ethyl Alcohol (0-10) mg/dL 09/15/20 09/15/20 09/15/20 Range/Units 05:00 05:00 05:00 WBC 9.8 (4.0-10.5) K/mm3 RBC 5.65 H (4.1-5.6) M/mm3 Hgb 17.7 (12.5-18.0) gm/dl Hct 50.2 H (42-50) % MCV 88.8 (78-100) fl MCH 31.3 (26-32) pg MCHC 35.3 (32-36) g/dl RDW 13.3 (11.5-14.0) % Plt Count 225 (150-450) K/mm3 MPV 10.4 (7.5-11.0) fl Segmented Neutrophils 39 (36.-66.) % Band Neutrophils 1 (0.0-2.0) % Lymphocytes (Manual) 42 (24-44) % Monocytes (Manual) 7 (0.0-12.0) % Eosinophils (Manual) 7 H (0.00-3.0) % Basophils (Manual) 1 (0.0-1.0) % Atypical Lymphocytes 3 % Platelet Estimate NORMAL (NORMAL) RBC Morphology NORMAL Sodium 135 L (137-145) mmol/L Potassium 3.9 (3.5-5.1) mmol/L Chloride 101 (98-107) mmol/L Carbon Dioxide 21 L (22-30) mmol/L Anion Gap 16.8 H (5-15) MEQ/L BUN 11 (9-20) mg/dL Creatinine 0.74 (0.66-1.25) mg/dL Estimated GFR > 60.0 ML/MIN Glucose 441 H (74-106) mg/dL POC Glucometer (74 to 106) mg/dL Calcium 10.3 H (8.4-10.2) mg/dL Total Bilirubin 0.70 (0.2-1.3) mg/dL AST 41 (17-59) U/L ALT 61 H (0-50) U/L Alkaline Phosphatase 101 (38-126) U/L Troponin I < 0.012 (0.000-0.034) ng/mL NT-Pro-B Natriuret Pep 18.5 (0-450) pg/mL Serum Total Protein 8.5 H (6.3-8.2) g/dL Albumin 4.5 (3.5-5.0) g/dL Urine Color (YELLOW) Urine Appearance (CLEAR) Urine pH (5-6) Ur Specific [employer] (1.005-1.025) Urine Protein (Negative) Urine Ketones (NEGATIVE) Urine Blood (0-5) Brayden/ul Urine Nitrite (NEGATIVE) Urine Bilirubin (NEGATIVE) Urine Urobilinogen (0-1) mg/dL Ur Leukocyte Esterase (NEGATIVE) Urine WBC (Auto) (0-5) /HPF Urine RBC (Auto) (0-2) /HPF U Epithel Cells (Auto) (FEW) /HPF Urine Bacteria (Auto) (NEGATIVE) /HPF Urine Mucus (Auto) (NEGATIVE) /HPF Urine Culture Reflexed (NO) Urine Glucose (NEGATIVE) mg/dL Ethyl Alcohol < 10 (0-10) mg/dL - Progress Progress Note: 09/15/20 08:47 I assumed care of this patient at shift change at [address] Klein gave me report on this patient and told me that we needed to check on a 3-hour troponin level and a repeat Accu-Chek. The repeat Accu-Chek is 262 down from a blood sugar of 441. Patient no longer has chest pain and is feeling well. We will feed him. We are awaiting the troponin level. Per Dr. Klein if the patient's 3-hour troponin level is normal, the patient can be discharged to home. We will discharge him to home with instructions for him to follow-up with cardiology as an outpatient as well as his primary care physician. - Departure Departure Disposition: Home Critical Care Time: No
[2020-09-15 05:51] LABS: Hematocrit 50.2 % (42-50); Hemoglobin 17.7 gm/dl (12.5-18.0); Mean Cell Volume 88.8 fl (78-100); Mean Corpuscular Hemoglobin 31.3 pg (26-32); Mean Corpuscular Hgb Concent. 35.3 g/dl (32-36); Mean Platelet Volume 10.4 fl (7.5-11.0); Platelet Count 225 K/mm3 (150-450); Red Blood Count 5.65 M/mm3 (4.1-5.6); Red Cell Distribution Width 13.3 % (11.5-14.0); White Blood Count 9.8 K/mm3 (4.0-10.5)
[2020-09-15] MEDS ORDERED: Zofran 4 MG/2 ML VIAL ONE (05:52)
[2020-09-15] MEDS ORDERED: Sodium Chloride 0.9% 1000 ML 1,000 ML ONE ×2 (05:53→07:31)
[2020-09-15] MEDS ORDERED: MORPHINE SULFATE 4 MG INJ ONE (05:53)
[2020-09-15] MEDS ORDERED: MAALOX ES 30 ML UNIT DOSE ONE (06:00)
[2020-09-15] MEDS ORDERED: XYLOCAINE HCl Viscous ONE (06:00)
[2020-09-15 06:22] LABS: ALBUMIN 4.5 g/dL (3.5-5.0); ALKALINE PHOSPHATASE 101 U/L (38-126); ANION GAP 16.8 MEQ/L (5-15); ATYPICAL LYMPHS 3 %; BAND 1 % (0.0-2.0); BLOOD UREA NITROGEN 11 mg/dL (9-20); Basophil 1 % (0.0-1.0); CHLORIDE 101 mmol/L (98-107); Calcium 10.3 mg/dL (8.4-10.2); Carbon Dioxide 21 mmol/L (22-30); Creatinine 1 0.74 mg/dL (0.66-1.25); EST GLOMERULAR FILTRATION RATE > 60.0 ML/MIN; Eosinophil 7 % (0.00-3.0); Lymphocytes 42 % (24-44); Monocyte 7 % (0.0-12.0); NT PRO BNP 18.5 pg/mL (0-450); Neutrophils 39 % (36.-66.); Platelet Estimate NORMAL (NORMAL); Potassium 3.9 mmol/L (3.5-5.1); SGOT/AST 41 U/L (17-59); SGPT/ALT 61 U/L (0-50); SODIUM 135 mmol/L (137-145); Total Cells Counted 100; Total Protein 8.5 g/dL (6.3-8.2)
[2020-09-15 06:23] LABS: Glucose 441 mg/dL (74-106)
[2020-09-15] MEDS ORDERED: HUMULIN R IV ONE (06:26)
[2020-09-15 06:28] LABS: ETHYL ALCOHOL < 10 mg/dL (0-10); TROPONIN < 0.012 ng/mL (0.000-0.034)
[2020-09-15] MEDS ORDERED: HUMULIN R ONE (06:35)
[2020-09-15 06:38] LABS: Appearance CLEAR (CLEAR); Bilirubin NEGATIVE (NEGATIVE); Blood NEGATIVE Ery/ul (0-5); Glucose >=500 mg/dL (NEGATIVE); Ketones TRACE (NEGATIVE); Leukocyte Esterase NEGATIVE (NEGATIVE); Mucus SLIGHT /HPF (NEGATIVE); Nitrite NEGATIVE (NEGATIVE); Protein,Urine Dip NEGATIVE (Negative); Urobilinogen NEGATIVE mg/dL (0-1)
--- NOTE | 2020-09-15 08:49 | XRAY ---
Indication: Chest pain and short of breath following swallowing a turkey bone. Multiple contiguous axial images obtained through the chest without contrast as ordered. Comparison: September 17, 2018. Lungs inflated again with scattered tiny calcified/noncalcified granulomatous nodules. No suspicious pulmonary mass, infiltrate, effusion, or pneumothorax. Heart is not enlarged. Aorta is normal in course and caliber. Stable mediastinal and hilar calcified nodes. Bony thorax intact. Limited upper abdomen demonstrates stable fatty liver and calcified splenic granulomas. Impression: 1. Stable fatty liver and evidence for old granulomatous disease. 2. Remaining CT chest without contrast exam is again negative. Comment: Preliminary interpretation was made by [facility]. No critical discrepancy.
--- NOTE | 2020-09-15 08:53 | XRAY ---
Indication: Chest pain and short of breath following swallowing turkey bone. Comparison: May 06, 2019. PA/lateral chest again demonstrates normal heart, lungs, and bony thorax with incidental calcified granulomas. No radiopaque foreign body.
[2020-09-15 09:13] VITALS: BP 121/79; PULSE 78; O2SAT 94
== END 2020-09-15 09:13 | disposition home or self-care (01) ==
LOC: ED 04:57
DX: E11.65 Type 2 diabetes mellitus with hyperglycemia (principal); R07.89 Other chest pain; E78.00 Pure hypercholesterolemia, unspecified; I10 Essential (primary) hypertension; I73.9 Peripheral vascular disease, unspecified; J44.9 Chronic obstructive pulmonary disease, unspecified
CPT/HCPCS: 36000; 36415; 71046; 71250; 80053; 81001; 82947; 83880; 84484; 85025; 93005; 93041; 96360; 96361; 96374; 96375; 99285; G0480; 80307; J1815; J2270; J2405; A9270-GY

== ENCOUNTER 2021-06-07 15:56 | Emergency (ER) | payer OTHER ==
[2021-06-07] MEDS ORDERED: VENTOLIN COMMON CANISTER IH STA (17:02)
[2021-06-07] MEDS ORDERED: DECADRON 10MG INJ. IV ONE (17:03)
--- NOTE | 2021-06-07 17:06 | ERPHSYRPT ---
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 states he has a cough, shortness of breath, body aches and fever. denies any known covid contact. pt has not been vaccinated. Triage Nursing Assessment: pt is aox3, pupils perrl, temp is 100.0, pt appears in no acute distress, pt able to speak in full sentences with no difficulty, resps easy and non labored, radial pulses strong and equal, cap refill < 3 seconds, pt skin pink warm dry. Physician History: 41 years old male with history of atrial fibrillation on sotalol/Xarelto tobacco COPD, diabetes mellitus presented in the ER with increasing shortness of breath morning along with generalized weakness fatigue and tiredness. Patient report dizzy lightheaded, achy all over with no energy to do his routine activities. This started at work and is progressively worsening. Patient is tachycardic on presentation in the ER and heart rate in 120s. No fever and is unvaccinated against COVID-19. Timing/Duration: today, constant, gradual onset, worse Activities at Onset: activity Severity of Dyspnea-Max: moderate Severity of Dyspnea-Current: moderate Modifying Factors: Worsens With: activity, coughing, exertion Associated Symptoms: cough, chest pain/discomfort, fever, lightheadedness, wheezing, heaviness, lightheadedness, muscle spasms hands, tightness Allergies/Adverse Reactions: corn Allergy (Mild, Verified 06/07/21 16:53) egg Allergy (Mild, Verified 06/07/21 16:53) mold Allergy (Mild, Verified 06/07/21 16:53) peanut Allergy (Mild, Verified 06/07/21 16:53) soybean Allergy (Mild, Verified 06/07/21 16:53) tomato Allergy (Mild, Verified 06/07/21 16:53) wheat Allergy (Mild, Verified 06/07/21 16:53) shrimp Allergy (Verified 06/07/21 16:53) venom-honey bee Allergy (Verified 06/07/21 16:53) aspirin Adverse Reaction (Intermediate, Verified 06/07/21 16:53) Headache lobster Allergy (Uncoded 06/07/21 16:53) Home Medications: Albuterol Sulfate [Albuterol Sulfate Hfa] 8.5 gm IH Q4H PRN PRN 10/13/16 [History] Rivaroxaban 10 mg Tablet [Xarelto 10 mg Tablet] 20 mg PO DAILY 12/13/16 [History] Metformin HCl 500 mg [Glucophage 500 MG] 250 mg PO BID 05/12/17 [History] Simvastatin 40 mg [Zocor 40 mg] 40 mg PO DAILY 09/17/18 [History] Sotalol HCl 80 mg [Betapace 80 MG] 80 mg PO DAILY 09/17/18 [History] Fluticasone/Umeclidin/Vilanter [Trelegy Ellipta 100-62.5-25] 1 each IH DAILY 09/15/20 [History] Glipizide Xl 10 mg [Glucotrol Xl 10 MG] 10 mg PO DAILY 09/15/20 [History] Hx Tetanus, Diphtheria Vaccination/Date Given: Yes Hx Influenza Vaccination/Date Given: No Hx Pneumococcal Vaccination/Date Given: No Immunizations Up to Date: Yes Travel Risk - International Travel Have you traveled outside of the country in past 3 weeks: No - Coronavirus Screening Are you exhibiting any of the following symptoms?: Yes Symptoms: Fever, Cough: New Onset, Shortness of Breath, Headaches/Body Aches/Fatigue - Vaccine Status Have you recieved a Covid-19 vaccination: No - Review of Systems Constitutional: Fever, Chills, Fatigue, Weakness Eyes: No Symptoms Ears, Nose, & Throat: Nose Congestion, Throat Pain Respiratory: Cough, Dyspnea, Dyspnea on Exertion (HASSAN), Wheezing Cardiac: Chest Pain, Palpitations Abdominal/Gastrointestinal: Nausea Genitourinary Symptoms: No Symptoms Musculoskeletal: Myalgias Skin: No Symptoms Neurological: Dizziness, Headache Psychological: No Symptoms Endocrine: No Symptoms Hematologic/Lymphatic: No Symptoms Immunological/Allergic: No Symptoms - Past Medical History Pertinent Past Medical History: Yes Neurological History: No Pertinent History ENT History: No Pertinent History Cardiac History: Arrhythmia, High Cholesterol, Hypertension, Peripheral Vascular Disease Respiratory History: COPD, Emphysema Endocrine Medical History: Diabetes Type II Musculoskeletal History: No Pertinent History GI Medical History: No Pertinent History History: No Pertinent History Psycho-Social History: No Pertinent History Male Reproductive Disorders: No Pertinent History Other Medical History: pilonidal cyst- removed - Past Surgical History Past Surgical History: Yes Neuro Surgical History: No Pertinent History Cardiac: No Pertinent History Respiratory: No Pertinent History Gastrointestinal: No Pertinent History Genitourinary: No Pertinent History Musculoskeletal: Other Male Surgical History: No Pertinent History Other Surgical History: carpal tunnel surgery, tooth extractions, pilonidal cyst removed - Social History Smoking Status: Current every day smoker How long have you smoked: 32 years Exposure to second hand smoke: Yes Alcohol Use: Socially Drug Use: none Patient Lives Alone: No Significant Family History: diabetes, hypertension - Nursing Vital Signs Nursing Vital Signs: Initial Vital Signs Temperature 100.0 F 06/07/21 16:44 Pulse Rate 124 H 06/07/21 16:44 Respiratory Rate 24 06/07/21 16:44 Blood Pressure 107/77 06/07/21 16:44 O2 Sat by Pulse Oximetry 97 06/07/21 16:44 Pain Scale Pain Intensity 0 - Physical Exam General Appearance: no apparent distress, alert Eye Exam: PERRL/EOMI, eyes nml inspection Ears, Nose, Throat Exam: nasal congestion, pharyngeal erythema Neck Exam: normal inspection, non-tender, supple, full range of motion Respiratory Exam: diminished breath sounds, rhonchi, wheezing Cardiovascular/Chest Exam: normal heart sounds, tachycardia Abdominal/Gastrointestinal Exam: soft, normal bowel sounds, No tenderness Extremity Exam: non-tender, normal range of motion Neurologic Exam: alert, oriented x 3, cooperative, 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 nml as tested, normal mood/affect, nml cerebellar function, nml station & gait, sensation nml, No motor deficits Skin Exam: normal color SpO2 Interpretation: normal SpO2: 97 O2 Delivery: Room Air - Course EKG Interpreted by Me: RATE ([id number]), Sinus Tach, NORMAL AXIS, NORMAL INTERVALS, NORMAL QRS Ordered Tests: Active Orders 24 hr Category Date Time Status Player Development Manager STAT Care 06/07/21 17:02 Active EKG-ER Only STAT Care 06/07/21 17:01 Active IV Insertion STAT Care 06/07/21 17:01 Active NPO (ED) STAT Care 06/07/21 17:01 Active Oxygen-ED Only Nasal Cannula 2 lpm Care 06/07/21 17:01 Active CHEST 1 VIEW (PORTABLE) Stat Exams 06/07/21 17:27 Taken BLOOD CULTURE Stat Lab 06/07/21 17:50 Received CBC W DIFF Stat Lab 06/07/21 17:49 Completed CMP Stat Lab 06/07/21 17:49 Completed D-DIMER QUANTITATIVE Stat Lab 06/07/21 17:49 Completed Lactic Acid Stat Lab 06/07/21 17:01 Completed MAGNESIUM Stat Lab 06/07/21 17:49 Completed NT PRO BNP Stat Lab 06/07/21 17:49 Completed TROPONIN Q3H Lab 06/07/21 17:49 Completed TROPONIN Q3H Lab 06/07/21 20:48 Completed TROPONIN Q3H Lab 06/07/21 23:15 Ordered TROPONIN Q3H Lab 06/08/21 02:15 Ordered TROPONIN Q3H Lab 06/08/21 05:15 Ordered UA W/RFX UR CULTURE Stat Lab 06/07/21 19:19 Completed Medication Summary Discontinued Medications Generic Name Dose Route Start Last Admin Trade Name Freq PRN Reason Stop Dose Admin Albuterol Sulfate 4 puff 06/07/21 17:02 Ventolin Common Canister IH 06/07/21 17:03 ONCE STA Azithromycin 500 mg 06/07/21 20:38 06/07/21 20:46 Zithromax 250 Mg Tablet PO 06/07/21 20:39 500 mg STAT ONE Administration Azithromycin Confirm 06/07/21 20:44 Zithromax 250 Mg Tablet Administered 06/07/21 20:45 Dose 500 mg .ROUTE .STK-MED ONE Dexamethasone Sodium Phosphate 6 mg 06/07/21 17:03 06/07/21 18:41 Decadron 10mg Inj. IV 06/07/21 17:04 6 mg STAT ONE Administration Dexamethasone Sodium Phosphate Confirm 06/07/21 17:37 Decadron 10mg Inj. Administered 06/07/21 17:38 Dose 10 mg .ROUTE .STK-MED ONE Dexamethasone Sodium Phosphate Confirm 06/07/21 18:34 Decadron 10mg Inj. Administered 06/07/21 18:35 Dose 10 mg .ROUTE .STK-MED ONE Sodium Chloride 1,000 mls @ 999 mls/hr 06/07/21 20:15 06/07/21 20:20 Sodium Chloride 0.9% 1000 Ml IV 06/07/21 21:15 999 mls/hr .Q1H1M STA Administration Sodium Chloride Confirm 06/07/21 20:18 Sodium Chloride 0.9% 1000 Ml Administered 06/07/21 20:19 Dose 1,000 mls @ ud .ROUTE .[facility] Levofloxacin 500 mg 06/07/21 19:58 06/07/21 20:02 Levofloxacin 500 Mg Tablet PO 06/07/21 19:59 500 mg STAT ONE Administration Levofloxacin Confirm 06/07/21 20:01 Levofloxacin 500 Mg Tablet Administered 06/07/21 20:02 Dose 500 mg .ROUTE .[facility] Lab/Rad Data: Laboratory Result Diagrams 06/07/21 17:49 06/07/21 17:49 Laboratory Results 06/07/21 06/07/21 06/07/21 Range/Units 20:48 19:19 17:49 WBC (4.0-10.5) K/mm3 RBC (4.1-5.6) M/mm3 Hgb (12.5-18.0) gm/dl Hct (42-50) % MCV (78-100) fl MCH (26-32) pg MCHC (32-36) g/dl RDW (11.5-14.0) % Plt Count (150-450) K/mm3 MPV (7.5-11.0) fl Gran % (36.0-66.0) % Eos # (Auto) (0-0.5) Absolute Lymphs (auto) (1.0-4.6) Absolute Monos (auto) (0.0-1.3) Lymphocytes % (24.0-44.0) % Monocytes % (0.0-12.0) % Eosinophils % (0.00-5.0) % Basophils % (0.0-0.4) % Absolute Granulocytes (1.4-6.9) Basophils # (0-0.4) D-Dimer (215-500) ng/mL Sodium (137-145) mmol/L Potassium (3.5-5.1) mmol/L Chloride (98-107) mmol/L Carbon Dioxide (22-30) mmol/L Anion Gap (5-15) MEQ/L BUN (9-20) mg/dL Creatinine (0.66-1.25) mg/dL Estimated GFR ML/MIN Glucose (74-106) mg/dL Lactic Acid (0.4-2.0) Calcium (8.4-10.2) mg/dL Magnesium (1.6-2.3) mg/dL Total Bilirubin (0.2-1.3) mg/dL AST (17-59) U/L ALT (0-50) U/L Alkaline Phosphatase (38-126) U/L Troponin I < 0.012 < 0.012 (0.000-0.034) ng/mL NT-Pro-B Natriuret Pep (0-450) pg/mL Serum Total Protein (6.3-8.2) g/dL Albumin (3.5-5.0) g/dL Urine Color YELLOW (YELLOW) Urine Appearance CLEAR (CLEAR) Urine pH 5.0 (5-6) Ur Specific Eleele 1.026 (1.005-1.025) Urine Protein NEGATIVE (Negative) Urine Ketones NEGATIVE (NEGATIVE) Urine Blood NEGATIVE (0-5) Brayden/ul Urine Nitrite NEGATIVE (NEGATIVE) Urine Bilirubin NEGATIVE (NEGATIVE) Urine Urobilinogen 2 (0-1) mg/dL Ur Leukocyte Esterase NEGATIVE (NEGATIVE) Urine WBC (Auto) NONE (0-5) /HPF Urine RBC (Auto) NONE (0-2) /HPF U Epithel Cells (Auto) NONE (FEW) /HPF Urine Bacteria (Auto) NONE SEEN (NEGATIVE) /HPF Urine Culture Reflexed NO (NO) Urine Glucose >=500 (NEGATIVE) mg/dL 06/07/21 06/07/21 06/07/21 Range/Units 17:49 17:49 17:49 WBC 5.2 (4.0-10.5) K/mm3 RBC 4.99 (4.1-5.6) M/mm3 Hgb 15.0 (12.5-18.0) gm/dl Hct 44.1 (42-50) % MCV 88.4 (78-100) fl MCH 30.1 (26-32) pg MCHC 34.0 (32-36) g/dl RDW 13.2 (11.5-14.0) % Plt Count 162 (150-450) K/mm3 MPV 9.5 (7.5-11.0) fl Gran % 64.6 (36.0-66.0) % Eos # (Auto) 0.11 (0-0.5) Absolute Lymphs (auto) 1.15 (1.0-4.6) Absolute Monos (auto) 0.55 (0.0-1.3) Lymphocytes % 22.1 L (24.0-44.0) % Monocytes % 10.6 (0.0-12.0) % Eosinophils % 2.1 (0.00-5.0) % Basophils % 0.6 (0.0-0.4) % Absolute Granulocytes 3.36 (1.4-6.9) Basophils # 0.03 (0-0.4) D-Dimer 344 (215-500) ng/mL Sodium 137 (137-145) mmol/L Potassium 3.4 L (3.5-5.1) mmol/L Chloride 100 (98-107) mmol/L Carbon Dioxide 24 (22-30) mmol/L Anion Gap 16.4 H (5-15) MEQ/L BUN 10 (9-20) mg/dL Creatinine 0.83 (0.66-1.25) mg/dL Estimated GFR > 60.0 ML/MIN Glucose 287 H (74-106) mg/dL Lactic Acid (0.4-2.0) Calcium 9.4 (8.4-10.2) mg/dL Magnesium 1.8 (1.6-2.3) mg/dL Total Bilirubin 0.70 (0.2-1.3) mg/dL AST 53 (17-59) U/L ALT 66 H (0-50) U/L Alkaline Phosphatase 63 (38-126) U/L Troponin I (0.000-0.034) ng/mL NT-Pro-B Natriuret Pep 36.9 (0-450) pg/mL Serum Total Protein 7.6 (6.3-8.2) g/dL Albumin 4.4 (3.5-5.0) g/dL Urine Color (YELLOW) Urine Appearance (CLEAR) Urine pH (5-6) Ur Specific Eleele (1.005-1.025) Urine Protein (Negative) Urine Ketones (NEGATIVE) Urine Blood (0-5) Brayden/ul Urine Nitrite (NEGATIVE) Urine Bilirubin (NEGATIVE) Urine Urobilinogen (0-1) mg/dL Ur Leukocyte Esterase (NEGATIVE) Urine WBC (Auto) (0-5) /HPF Urine RBC (Auto) (0-2) /HPF U Epithel Cells (Auto) (FEW) /HPF Urine Bacteria (Auto) (NEGATIVE) /HPF Urine Culture Reflexed (NO) Urine Glucose (NEGATIVE) mg/dL 06/07/21 Range/Units 17:01 WBC (4.0-10.5) K/mm3 RBC (4.1-5.6) M/mm3 Hgb (12.5-18.0) gm/dl Hct (42-50) % MCV (78-100) fl MCH (26-32) pg MCHC (32-36) g/dl RDW (11.5-14.0) % Plt Count (150-450) K/mm3 MPV (7.5-11.0) fl Gran % (36.0-66.0) % Eos # (Auto) (0-0.5) Absolute Lymphs (auto) (1.0-4.6) Absolute Monos (auto) (0.0-1.3) Lymphocytes % (24.0-44.0) % Monocytes % (0.0-12.0) % Eosinophils % (0.00-5.0) % Basophils % (0.0-0.4) % Absolute Granulocytes (1.4-6.9) Basophils # (0-0.4) D-Dimer (215-500) ng/mL Sodium (137-145) mmol/L Potassium (3.5-5.1) mmol/L Chloride (98-107) mmol/L Carbon Dioxide (22-30) mmol/L Anion Gap (5-15) MEQ/L BUN (9-20) mg/dL Creatinine (0.66-1.25) mg/dL Estimated GFR ML/MIN Glucose (74-106) mg/dL Lactic Acid 2.0 (0.4-2.0) Calcium (8.4-10.2) mg/dL Magnesium (1.6-2.3) mg/dL Total Bilirubin (0.2-1.3) mg/dL AST (17-59) U/L ALT (0-50) U/L Alkaline Phosphatase (38-126) U/L Troponin I (0.000-0.034) ng/mL NT-Pro-B Natriuret Pep (0-450) pg/mL Serum Total Protein (6.3-8.2) g/dL Albumin (3.5-5.0) g/dL Urine Color (YELLOW) Urine Appearance (CLEAR) Urine pH (5-6) Ur Specific Eleele (1.005-1.025) Urine Protein (Negative) Urine Ketones (NEGATIVE) Urine Blood (0-5) Brayden/ul Urine Nitrite (NEGATIVE) Urine Bilirubin (NEGATIVE) Urine Urobilinogen (0-1) mg/dL Ur Leukocyte Esterase (NEGATIVE) Urine WBC (Auto) (0-5) /HPF Urine RBC (Auto) (0-2) /HPF U Epithel Cells (Auto) (FEW) /HPF Urine Bacteria (Auto) (NEGATIVE) /HPF Urine Culture Reflexed (NO) Urine Glucose (NEGATIVE) mg/dL - Progress Progress: improved Air Movement: good Progress Note: 06/07/21 20:15 41 years old is evaluated for flulike symptoms. Patient was tachycardic on presentation, given fluid bolus, albuterol inhaler and Decadron, on reevaluation feeling better and tachycardia improved. EKG showed sinus tach without any ST elevations. Normal white count, chemistry profile mild dehydration and hyperglycemia. Chest x-ray showed bilateral questionable infiltrative process reviewed by me, official report is pending. Patient is maintaining oxygen saturation at room air around 96%. Not much tachypneic. I have given him a dose of Levaquin. COVID-19 is pending. I do not think patient needs to be admitted in the hospital right now but will continue with outpatient treatment first. Discussed signs symptoms of worsening needing return to ER which he seems understanding. Blood Culture(s) Obtained: Yes Antibiotics given: Yes Counseled pt/family regarding: lab results, diagnosis, rad results - Departure Departure Disposition: Home Clinical Impression: Viral syndrome Pneumonia Qualifiers: Pneumonia type: due to unspecified organism Laterality: bilateral Lung location: unspecified part of lung Qualified Code(s): J18.9 - Pneumonia, unspecified organism Condition: Stable Critical Care Time: No Referrals: DENY CARRANZA [Primary Care Provider] - (Call tomorrow for reevaluation) Instructions: Pneumonia, Adult (DC) Additional Instructions: Take Tylenol as needed for fever greater than 100.4 every 6 hourly. Drink plent y of fluids. Continue with antibiotics. Monitor your blood sugar regularly and if remains elevated, take extra dose of Metformin or talk to your primary care doctor. Return to ER for worsening symptoms with persistent cough, fever, shortness of breath etc. Prescriptions: Dexamethasone [Decadron] 6 mg PO DAILY #5 tablet Levofloxacin [Levaquin 500 MG Tablet] 500 mg PO DAILY #9 tablet Albuterol 8 gm Mdi Hfa [Ventolin Hfa MDI] 8 gm IH Q4H #1 gm
[2021-06-07] MEDS ORDERED: DECADRON 10MG INJ. ONE ×2 (17:37→18:34)
[2021-06-07 17:56] LABS: Absolute Neutrophil Ct (ANC) 3.36 (1.4-6.9); BASOPHIL % 0.6 % (0.0-0.4); Basophil (Absolute #) 0.03 (0-0.4); Eosinophil % 2.1 % (0.00-5.0); Eosinophil (Absolute #) 0.11 (0-0.5); Hematocrit 44.1 % (42-50); Lymphocyte (Absolute #) 1.15 (1.0-4.6); Lymphocytes % 22.1 % (24.0-44.0); Mean Cell Volume 88.4 fl (78-100); Mean Corpuscular Hemoglobin 30.1 pg (26-32); Mean Platelet Volume 9.5 fl (7.5-11.0); Monocyte (Absolute #) 0.55 (0.0-1.3); Monocytes % 10.6 % (0.0-12.0); Neutrophil % 64.6 % (36.0-66.0); Platelet Count 162 K/mm3 (150-450); Red Blood Count 4.99 M/mm3 (4.1-5.6); Red Cell Distribution Width 13.2 % (11.5-14.0); White Blood Count 5.2 K/mm3 (4.0-10.5)
[2021-06-07 18:20] LABS: ALBUMIN 4.4 g/dL (3.5-5.0); ALKALINE PHOSPHATASE 63 U/L (38-126); ANION GAP 16.4 MEQ/L (5-15); BLOOD UREA NITROGEN 10 mg/dL (9-20); CHLORIDE 100 mmol/L (98-107); Calcium 9.4 mg/dL (8.4-10.2); Carbon Dioxide 24 mmol/L (22-30); Creatinine 1 0.83 mg/dL (0.66-1.25); EST GLOMERULAR FILTRATION RATE > 60.0 ML/MIN; Glucose 287 mg/dL (74-106); MAGNESIUM 1.8 mg/dL (1.6-2.3); NT PRO BNP 36.9 pg/mL (0-450); Potassium 3.4 mmol/L (3.5-5.1); SGOT/AST 53 U/L (17-59); SGPT/ALT 66 U/L (0-50); SODIUM 137 mmol/L (137-145); Total Protein 7.6 g/dL (6.3-8.2)
[2021-06-07 19:54] LABS: Appearance CLEAR (CLEAR); Bilirubin NEGATIVE (NEGATIVE); Blood NEGATIVE Ery/ul (0-5); Glucose >=500 mg/dL (NEGATIVE); Ketones NEGATIVE (NEGATIVE); Leukocyte Esterase NEGATIVE (NEGATIVE); Nitrite NEGATIVE (NEGATIVE); Protein,Urine Dip NEGATIVE (Negative); Specific Gravity 1.026 (1.005-1.025); Urobilinogen 2 mg/dL (0-1)
[2021-06-07] MEDS ORDERED: Levofloxacin 500 MG Tablet PO ONE (19:58)
[2021-06-07] MEDS ORDERED: Levofloxacin 500 MG Tablet ONE (20:01)
[2021-06-07 20:14] LABS: Bacteria NONE SEEN /HPF (NEGATIVE)
[2021-06-07] MEDS ORDERED: Sodium Chloride 0.9% 1000 ML 1,000 ML IV STA (20:15)
[2021-06-07] MEDS ORDERED: Sodium Chloride 0.9% 1000 ML 1,000 ML ONE (20:18)
[2021-06-07 20:19] VITALS: O2SAT 97
[2021-06-07] MEDS ORDERED: Zithromax 250 MG TABLET PO ONE (20:38)
[2021-06-07] MEDS ORDERED: Zithromax 250 MG TABLET ONE (20:44)
[2021-06-07 21:33] VITALS: BP 129/84; PULSE 111
[2021-06-07] MEDS ORDERED: TYLENOL EXTRA STRENGTH 500 MG ONE (21:34)
[2021-06-07] MEDS ORDERED: TYLENOL EXTRA STRENGTH 500 MG PO PRN (21:34)
--- NOTE | 2021-06-08 08:37 | XRAY ---
Indication: Cough, sore throat, and dizziness. Comparison: September 15, 2020. PA/lateral chest remains clear again with incidental tiny calcified granulomas. Heart and mediastinal structures within normal limits. Bony thorax intact. Impression: Continued nonacute chest with incidental old granulomatous disease.
== END 2021-06-07 21:58 | disposition home or self-care (01) ==
LOC: ED 15:56
DX: B34.9 Viral infection, unspecified (principal); J18.9 Pneumonia, unspecified organism
CPT/HCPCS: 36000; 36415; 71045; 80053; 81001; 83605; 83735; 83880; 84484; 85025; 85379; 87040; 93005; 93041; 96360; 96374; 99284; U0003; J1100; A9270-GY

== ENCOUNTER 2021-07-12 20:01 | Emergency (ER) | payer OTHER ==
--- NOTE | 2021-07-12 20:08 | ERPHSYRPT ---
- History of Present Illness Time Seen by Provider: 07/12/21 20:08 Source: patient Exam Limitations: no limitations Physician History: This is a 41-year-old male who is a patient of Dr. Angus Zhu and presents with sudden onset of dizziness that occurred approximately an hour prior to this evaluation in the emergency department. Patient denies chest pain . Patient has no shortness of breath. Patient has no abdominal pain. He has had no nausea vomiting or diarrhea. He denies fever. Patient is a diabetic and has a history of atrial fibrillation, elevated triglyceride and cholesterol levels, peripheral vascular disease, hypertension and COPD. He smokes daily. He is on Betapace and Xarelto. There is been no changes in his medications recently. Patient states he is never had this type of issue in the past. Timing/Duration: today, sudden, improved Severity: mild Character of Deficits: none Deficits: no difficulties Baseline/Normal Cognition: alert oriented x 3 Current Cognition: alert oriented x 3 Baseline Gait: walks w/o assistance Associated Symptoms: denies symptoms Allergies/Adverse Reactions: corn Allergy (Mild, Verified 07/12/21 20:09) egg Allergy (Mild, Verified 07/12/21 20:09) mold Allergy (Mild, Verified 07/12/21 20:09) peanut Allergy (Mild, Verified 07/12/21 20:09) soybean Allergy (Mild, Verified 07/12/21 20:09) tomato Allergy (Mild, Verified 07/12/21 20:09) wheat Allergy (Mild, Verified 07/12/21 20:09) shrimp Allergy (Verified 07/12/21 20:09) venom-honey bee Allergy (Verified 07/12/21 20:09) aspirin Adverse Reaction (Intermediate, Verified 07/12/21 20:09) Headache lobster Allergy (Uncoded 07/12/21 20:09) Home Medications: Albuterol Sulfate [Albuterol Sulfate Hfa] 8.5 gm IH Q4H PRN PRN 10/13/16 [History] Rivaroxaban 10 mg Tablet [Xarelto 10 mg Tablet] 20 mg PO DAILY 12/13/16 [History] Metformin HCl 500 mg [Glucophage 500 MG] 250 mg PO BID 05/12/17 [History] Simvastatin 40 mg [Zocor 40 mg] 40 mg PO DAILY 09/17/18 [History] Sotalol HCl 80 mg [Betapace 80 MG] 80 mg PO DAILY 09/17/18 [History] Fluticasone/Umeclidin/Vilanter [Trelegy Ellipta 100-62.5-25] 1 each IH DAILY 09/15/20 [History] Glipizide Xl 10 mg [Glucotrol Xl 10 MG] 10 mg PO DAILY 09/15/20 [History] Hx Tetanus, Diphtheria Vaccination/Date Given: Yes Hx Influenza Vaccination/Date Given: No Hx Pneumococcal Vaccination/Date Given: No Travel Risk - International Travel Have you traveled outside of the country in past 3 weeks: No - Coronavirus Screening Are you exhibiting any of the following symptoms?: No Close contact with a COVID-19 positive Pt in past 14-21 Days: No - Vaccine Status Have you recieved a Covid-19 vaccination: No - Review of Systems Constitutional: No Symptoms Eyes: No Symptoms Ears, Nose, & Throat: No Symptoms Respiratory: No Symptoms Cardiac: No Symptoms Abdominal/Gastrointestinal: No Symptoms Genitourinary Symptoms: No Symptoms Musculoskeletal: No Symptoms Skin: No Symptoms Neurological: Dizziness Psychological: No Symptoms Endocrine: No Symptoms Hematologic/Lymphatic: No Symptoms Immunological/Allergic: No Symptoms All Other Systems: Reviewed and Negative - Past Medical History Pertinent Past Medical History: Yes Neurological History: No Pertinent History ENT History: No Pertinent History Cardiac History: Arrhythmia, High Cholesterol, Hypertension, Peripheral Vascular Disease Respiratory History: COPD, Emphysema Endocrine Medical History: Diabetes Type II Musculoskeletal History: No Pertinent History GI Medical History: No Pertinent History History: No Pertinent History Psycho-Social History: No Pertinent History Male Reproductive Disorders: No Pertinent History Other Medical History: pilonidal cyst- removed - Past Surgical History Past Surgical History: Yes Neuro Surgical History: No Pertinent History Cardiac: No Pertinent History Respiratory: No Pertinent History Gastrointestinal: No Pertinent History Genitourinary: No Pertinent History Musculoskeletal: Other Male Surgical History: No Pertinent History Other Surgical History: carpal tunnel surgery, tooth extractions, pilonidal cyst removed - Social History Smoking Status: Current every day smoker How long have you smoked: 32 years Exposure to second hand smoke: Yes Alcohol Use: Socially Drug Use: none Patient Lives Alone: No Significant Family History: diabetes, hypertension - Nursing Vital Signs Nursing Vital Signs: Initial Vital Signs Temperature 97.7 F 07/12/21 20:13 Pulse Rate 67 07/12/21 20:13 Respiratory Rate 16 07/12/21 20:13 Blood Pressure 142/81 07/12/21 20:13 O2 Sat by Pulse Oximetry 98 07/12/21 20:13 Pain Scale Pain Intensity 2 - Sudeep Coma Scale Best Eye Response (Sudeep): (4) open spontaneously Best Verbal Response (Sudeep): (5) oriented Best Motor Response (Sudeep): (6) obeys commands [place] Total: 15 - Physical Exam General Appearance: no apparent distress, alert, anxiety Eye Exam: bilateral eye: normal inspection, PERRL, EOMI, abnormal EOM Ears, Nose, Throat Exam: other (Bilateral ear canals with cerumen) Neck Exam: normal inspection, non-tender, supple, full range of motion Respiratory: normal breath sounds, lungs clear, airway intact, No chest tenderness, No respiratory distress Cardiovascular: regular rate/rhythm, normal heart sounds, normal peripheral pulses Gastrointestinal: soft, normal bowel sounds, No tenderness Rectal Exam: not done Back Exam: normal inspection, normal range of motion, No CVA tenderness, No vertebral tenderness Extremity Exam: normal inspection, normal range of motion, pelvis stable Mental Status: alert, oriented x 3, 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 Welcome paring today's EKG with that performed on 06/07/2021, the sinus tachycardia that was present then has now resolved. There is no evidence of any acute ischemic changes on today's EKG.) Ordered Tests: Active Orders 24 hr Category Date Time Status Clean Catch Urine Specimen STAT Care 07/12/21 20:28 Active EKG-ER Only STAT Care 07/12/21 20:28 Active IV Insertion STAT Care 07/12/21 20:28 Active HEAD WITHOUT CONTRAST [CT] Stat Exams 07/12/21 20:28 Taken CBC W DIFF Stat Lab 07/12/21 20:51 Completed CMP Stat Lab 07/12/21 20:51 Completed D-DIMER QUANTITATIVE Stat Lab 07/12/21 21:07 Completed ETHYL ALCOHOL Stat Lab 07/12/21 20:51 Completed Lactic Acid Stat Lab 07/12/21 20:30 Completed MAGNESIUM Stat Lab 07/12/21 20:51 Completed TROPONIN Q3H Lab 07/12/21 20:54 Completed TROPONIN Q3H Lab 07/12/21 23:30 Ordered TROPONIN Q3H Lab 07/13/21 02:30 Ordered TROPONIN Q3H Lab 07/13/21 05:30 Ordered TROPONIN Q3H Lab 07/13/21 08:30 Ordered UA W/RFX UR CULTURE Stat Lab 07/12/21 20:51 Completed Urine Triage Profile Stat Lab 07/12/21 20:51 Completed Lab/Rad Data: Laboratory Result Diagrams 07/12/21 20:51 07/12/21 20:51 Laboratory Results 07/12/21 07/12/21 07/12/21 Range/Units 21:07 20:54 20:51 WBC (4.0-10.5) K/mm3 RBC (4.1-5.6) M/mm3 Hgb (12.5-18.0) gm/dl Hct (42-50) % MCV (78-100) fl MCH (26-32) pg MCHC (32-36) g/dl RDW (11.5-14.0) % Plt Count (150-450) K/mm3 MPV (7.5-11.0) fl Gran % (36.0-66.0) % Eos # (Auto) (0-0.5) Absolute Lymphs (auto) (1.0-4.6) Absolute Monos (auto) (0.0-1.3) Lymphocytes % (24.0-44.0) % Monocytes % (0.0-12.0) % Eosinophils % (0.00-5.0) % Basophils % (0.0-0.4) % Absolute Granulocytes (1.4-6.9) Basophils # (0-0.4) D-Dimer 242 (215-500) ng/mL Sodium 140 (137-145) mmol/L Potassium 3.8 (3.5-5.1) mmol/L Chloride 106 (98-107) mmol/L Carbon Dioxide 23 (22-30) mmol/L Anion Gap 15.1 H (5-15) MEQ/L BUN 10 (9-20) mg/dL Creatinine 0.85 (0.66-1.25) mg/dL Estimated GFR > 60.0 ML/MIN Glucose 160 H (74-106) mg/dL Lactic Acid (0.4-2.0) Calcium 9.3 (8.4-10.2) mg/dL Magnesium 1.8 (1.6-2.3) mg/dL Total Bilirubin 1.10 (0.2-1.3) mg/dL AST 43 (17-59) U/L ALT 56 H (0-50) U/L Alkaline Phosphatase 57 (38-126) U/L Troponin I < 0.012 (0.000-0.034) ng/mL Serum Total Protein 7.3 (6.3-8.2) g/dL Albumin 4.2 (3.5-5.0) g/dL Urine Color (YELLOW) Urine Appearance (CLEAR) Urine pH (5-6) Ur Specific [place] (1.005-1.025) Urine Protein (Negative) Urine Ketones (NEGATIVE) Urine Blood (0-5) Brayden/ul Urine Nitrite (NEGATIVE) Urine Bilirubin (NEGATIVE) Urine Urobilinogen (0-1) mg/dL Ur Leukocyte Esterase (NEGATIVE) Urine WBC (Auto) (0-5) /HPF Urine RBC (Auto) (0-2) /HPF U Epithel Cells (Auto) (FEW) /HPF Urine Bacteria (Auto) (NEGATIVE) /HPF Urine Culture Reflexed (NO) Urine Glucose (NEGATIVE) mg/dL Urine Opiates Level (NEGATIVE) Ur Methadone (NEGATIVE) Urine Barbiturates (NEGATIVE) Ur Phencyclidine (PCP) (NEGATIVE) Urine Amphetamine (NEGATIVE) U Benzodiazepine Level (NEGATIVE) Urine Cocaine (NEGATIVE) Urine Marijuana (THC) (NEGATIVE) Ethyl Alcohol < 10 (0-10) mg/dL 07/12/21 07/12/21 07/12/21 Range/Units 20:51 20:51 20:51 WBC 7.1 (4.0-10.5) K/mm3 RBC 4.96 (4.1-5.6) M/mm3 Hgb 14.9 (12.5-18.0) gm/dl Hct 44.0 (42-50) % MCV 88.7 (78-100) fl MCH 30.0 (26-32) pg MCHC 33.9 (32-36) g/dl RDW 13.3 (11.5-14.0) % Plt Count 221 (150-450) K/mm3 MPV 9.3 (7.5-11.0) fl Gran % 40.6 (36.0-66.0) % Eos # (Auto) 0.34 (0-0.5) Absolute Lymphs (auto) 3.16 (1.0-4.6) Absolute Monos (auto) 0.67 (0.0-1.3) Lymphocytes % 44.7 H (24.0-44.0) % Monocytes % 9.5 (0.0-12.0) % Eosinophils % 4.8 (0.00-5.0) % Basophils % 0.4 (0.0-0.4) % Absolute Granulocytes 2.87 (1.4-6.9) Basophils # 0.03 (0-0.4) D-Dimer (215-500) ng/mL Sodium (137-145) mmol/L Potassium (3.5-5.1) mmol/L Chloride (98-107) mmol/L Carbon Dioxide (22-30) mmol/L Anion Gap (5-15) MEQ/L BUN (9-20) mg/dL Creatinine (0.66-1.25) mg/dL Estimated GFR ML/MIN Glucose (74-106) mg/dL Lactic Acid (0.4-2.0) Calcium (8.4-10.2) mg/dL Magnesium (1.6-2.3) mg/dL Total Bilirubin (0.2-1.3) mg/dL AST (17-59) U/L ALT (0-50) U/L Alkaline Phosphatase (38-126) U/L Troponin I (0.000-0.034) ng/mL Serum Total Protein (6.3-8.2) g/dL Albumin (3.5-5.0) g/dL Urine Color YELLOW (YELLOW) Urine Appearance CLEAR (CLEAR) Urine pH 5.0 (5-6) Ur Specific [place] 1.019 (1.005-1.025) Urine Protein NEGATIVE (Negative) Urine Ketones NEGATIVE (NEGATIVE) Urine Blood NEGATIVE (0-5) Brayden/ul Urine Nitrite NEGATIVE (NEGATIVE) Urine Bilirubin NEGATIVE (NEGATIVE) Urine Urobilinogen NEGATIVE (0-1) mg/dL Ur Leukocyte Esterase NEGATIVE (NEGATIVE) Urine WBC (Auto) NONE (0-5) /HPF Urine RBC (Auto) NONE (0-2) /HPF U Epithel Cells (Auto) NONE (FEW) /HPF Urine Bacteria (Auto) NONE (NEGATIVE) /HPF Urine Culture Reflexed NO (NO) Urine Glucose NEGATIVE (NEGATIVE) mg/dL Urine Opiates Level NEGATIVE (NEGATIVE) Ur Methadone NEGATIVE (NEGATIVE) Urine Barbiturates NEGATIVE (NEGATIVE) Ur Phencyclidine (PCP) NEGATIVE (NEGATIVE) Urine Amphetamine NEGATIVE (NEGATIVE) U Benzodiazepine Level NEGATIVE (NEGATIVE) Urine Cocaine NEGATIVE (NEGATIVE) Urine Marijuana (THC) NEGATIVE (NEGATIVE) Ethyl Alcohol (0-10) mg/dL 07/12/21 Range/Units 20:30 WBC (4.0-10.5) K/mm3 RBC (4.1-5.6) M/mm3 Hgb (12.5-18.0) gm/dl Hct (42-50) % MCV (78-100) fl MCH (26-32) pg MCHC (32-36) g/dl RDW (11.5-14.0) % Plt Count (150-450) K/mm3 MPV (7.5-11.0) fl Gran % (36.0-66.0) % Eos # (Auto) (0-0.5) Absolute Lymphs (auto) (1.0-4.6) Absolute Monos (auto) (0.0-1.3) Lymphocytes % (24.0-44.0) % Monocytes % (0.0-12.0) % Eosinophils % (0.00-5.0) % Basophils % (0.0-0.4) % Absolute Granulocytes (1.4-6.9) Basophils # (0-0.4) D-Dimer (215-500) ng/mL Sodium (137-145) mmol/L Potassium (3.5-5.1) mmol/L Chloride (98-107) mmol/L Carbon Dioxide (22-30) mmol/L Anion Gap (5-15) MEQ/L BUN (9-20) mg/dL Creatinine (0.66-1.25) mg/dL Estimated GFR ML/MIN Glucose (74-106) mg/dL Lactic Acid 1.8 (0.4-2.0) Calcium (8.4-10.2) mg/dL Magnesium (1.6-2.3) mg/dL Total Bilirubin (0.2-1.3) mg/dL AST (17-59) U/L ALT (0-50) U/L Alkaline Phosphatase (38-126) U/L Troponin I (0.000-0.034) ng/mL Serum Total Protein (6.3-8.2) g/dL Albumin (3.5-5.0) g/dL Urine Color (YELLOW) Urine Appearance (CLEAR) Urine pH (5-6) Ur Specific [place] (1.005-1.025) Urine Protein (Negative) Urine Ketones (NEGATIVE) Urine Blood (0-5) Brayden/ul Urine Nitrite (NEGATIVE) Urine Bilirubin (NEGATIVE) Urine Urobilinogen (0-1) mg/dL Ur Leukocyte Esterase (NEGATIVE) Urine WBC (Auto) (0-5) /HPF Urine RBC (Auto) (0-2) /HPF U Epithel Cells (Auto) (FEW) /HPF Urine Bacteria (Auto) (NEGATIVE) /HPF Urine Culture Reflexed (NO) Urine Glucose (NEGATIVE) mg/dL Urine Opiates Level (NEGATIVE) Ur Methadone (NEGATIVE) Urine Barbiturates (NEGATIVE) Ur Phencyclidine (PCP) (NEGATIVE) Urine Amphetamine (NEGATIVE) U Benzodiazepine Level (NEGATIVE) Urine Cocaine (NEGATIVE) Urine Marijuana (THC) (NEGATIVE) Ethyl Alcohol (0-10) mg/dL - Progress Progress: improved, re-examined Progress Note: 07/12/21 21:52 CAT scan of the head without contrast shows no acute intracranial abnormality Counseled pt/family regarding: lab results, diagnosis, need for follow-up, corky jeffrey - Departure Departure Disposition: Home Clinical Impression: Dizziness Condition: Stable Critical Care Time: No Referrals: DENY FOOTE [Primary Care Provider] - Additional Instructions: Drink plenty of fluids. Treat and monitor your blood sugar per your prescriptions. Call your primary care physician tomorrow to make arrange for follow-up appointment.
[2021-07-12 20:57] LABS: Absolute Neutrophil Ct (ANC) 2.87 (1.4-6.9); BASOPHIL % 0.4 % (0.0-0.4); Basophil (Absolute #) 0.03 (0-0.4); Eosinophil % 4.8 % (0.00-5.0); Eosinophil (Absolute #) 0.34 (0-0.5); Hemoglobin 14.9 gm/dl (12.5-18.0); Lymphocyte (Absolute #) 3.16 (1.0-4.6); Lymphocytes % 44.7 % (24.0-44.0); Mean Cell Volume 88.7 fl (78-100); Mean Corpuscular Hgb Concent. 33.9 g/dl (32-36); Mean Platelet Volume 9.3 fl (7.5-11.0); Monocyte (Absolute #) 0.67 (0.0-1.3); Monocytes % 9.5 % (0.0-12.0); Neutrophil % 40.6 % (36.0-66.0); Platelet Count 221 K/mm3 (150-450); Red Blood Count 4.96 M/mm3 (4.1-5.6); Red Cell Distribution Width 13.3 % (11.5-14.0); White Blood Count 7.1 K/mm3 (4.0-10.5)
[2021-07-12 21:00] LABS: Appearance CLEAR (CLEAR); Bilirubin NEGATIVE (NEGATIVE); Blood NEGATIVE Ery/ul (0-5); Glucose NEGATIVE (NEGATIVE); Ketones NEGATIVE (NEGATIVE); Leukocyte Esterase NEGATIVE (NEGATIVE); Nitrite NEGATIVE (NEGATIVE); Protein,Urine Dip NEGATIVE (Negative); Specific Gravity 1.019 (1.005-1.025); Urobilinogen NEGATIVE mg/dL (0-1)
[2021-07-12 21:07] LABS: ALBUMIN 4.2 g/dL (3.5-5.0); ALKALINE PHOSPHATASE 57 U/L (38-126); ANION GAP 15.1 MEQ/L (5-15); BLOOD UREA NITROGEN 10 mg/dL (9-20); CHLORIDE 106 mmol/L (98-107); Calcium 9.3 mg/dL (8.4-10.2); Carbon Dioxide 23 mmol/L (22-30); Creatinine 1 0.85 mg/dL (0.66-1.25); EST GLOMERULAR FILTRATION RATE > 60.0 ML/MIN; ETHYL ALCOHOL < 10 mg/dL (0-10); Glucose 160 mg/dL (74-106); MAGNESIUM 1.8 mg/dL (1.6-2.3); Potassium 3.8 mmol/L (3.5-5.1); SGOT/AST 43 U/L (17-59); SGPT/ALT 56 U/L (0-50); SODIUM 140 mmol/L (137-145); Total Protein 7.3 g/dL (6.3-8.2)
[2021-07-12 21:15] LABS: Amphetamine,Urine NEGATIVE (NEGATIVE); Barbiturate,Urine NEGATIVE (NEGATIVE); Benzodiazepine,Urine NEGATIVE (NEGATIVE); Cocaine,Urine NEGATIVE (NEGATIVE); Methadone,Urine NEGATIVE (NEGATIVE); Opiate,Urine NEGATIVE (NEGATIVE); PCP,Urine NEGATIVE (NEGATIVE); THC,Urine NEGATIVE (NEGATIVE)
[2021-07-12 22:06] VITALS: BP 125/78; PULSE 73
[2021-07-12 22:09] VITALS: O2SAT 97
--- NOTE | 2021-07-13 08:43 | XRAY ---
Indication: Dizziness. Multiple contiguous axial images obtained through the head without contrast. Comparison: None. Normal appearing brain parenchyma, ventricles, and bony calvarium. Visualized paranasal sinuses and mastoid air cells are clear. Impression: Normal CT head without contrast exam. Comment: Preliminary interpretation made by [facility]. No critical discrepancy.
== END 2021-07-12 22:14 | disposition home or self-care (01) ==
LOC: ED 20:01
DX: R42 Dizziness and giddiness (principal); E11.9 Type 2 diabetes mellitus without complications; I10 Essential (primary) hypertension; J44.9 Chronic obstructive pulmonary disease, unspecified; Z79.899 Other long term (current) drug therapy; Z79.01 Long term (current) use of anticoagulants
CPT/HCPCS: 36000; 36415; 70450; 80053; 80307; 81001; 83605; 83735; 84484; 85025; 85379; 93005; 99284; G0480

== ENCOUNTER 2022-01-08 03:24 | Emergency (ER) | payer OTHER ==
--- NOTE | 2022-01-08 04:45 | ERPHSYRPT ---
- History of Present Illness Time Seen by Provider: 01/08/22 03:40 Source: patient Patient Subjective Stated Complaint: "I think my L shoulder is dislocated." Triage Nursing Assessment: Pt c/o L shoulder pain that started about an hour ago and it woke him up in the middle of his sleep, pt believes the shoulder is dislocated, pt able to raise bilateral arms up over head with difficulty, pt states "when I raise my arm it pops every time in my shoulder, pt states that L hand and fingers have half the sensation they normally do Physician History: Patient is a 41-year-old male presents to our ED with complains of left-sided shoulder pain. Pain occurred while he was sleeping. Patient has a history of shoulder dislocation and states his pain feels the same. No trauma. No fever. Patient states he slept on her shoulder wrong. Patient states his hands were tingling but the tingling has improved. No weakness. Active range of motion right hand wrist and elbow are within normal limits. Left shoulder pain occurs upon flexion and abduction. Active range of motion limited due to pain. No neck pain. No associated chest pain or shortness of breath. No nausea vomiting or diaphoresis. Patient voices no other complaints or concerns at this time. Occurred: just prior to arrival Method of Injury: other (Patient states he slept on his shoulder a certain way and awoke with pain) Quality: aching Severity of Pain-Max: moderate Severity of Pain-Current: mild Extremities Pain Location: shoulder: left Modifying Factors: Improves With: movement Associated Symptoms: none Allergies/Adverse Reactions: corn Allergy (Mild, Verified 07/12/21 20:09) egg Allergy (Mild, Verified 07/12/21 20:09) mold Allergy (Mild, Verified 07/12/21 20:09) peanut Allergy (Mild, Verified 07/12/21 20:09) soybean Allergy (Mild, Verified 07/12/21 20:09) tomato Allergy (Mild, Verified 07/12/21 20:09) wheat Allergy (Mild, Verified 07/12/21 20:09) shrimp Allergy (Verified 07/12/21 20:09) venom-honey bee Allergy (Verified 07/12/21 20:09) aspirin Adverse Reaction (Intermediate, Verified 07/12/21 20:09) Headache lobster Allergy (Uncoded 09/26/21 20:09) Home Medications: Albuterol Sulfate [Albuterol Sulfate Hfa] 8.5 gm IH Q4H PRN PRN 10/13/16 [History] Rivaroxaban 10 mg Tablet [Xarelto 10 mg Tablet] 20 mg PO DAILY 12/13/16 [History] Metformin HCl 500 mg [Glucophage 500 MG] 250 mg PO BID 05/12/17 [History] Simvastatin 40 mg [Zocor 40 mg] 40 mg PO DAILY 09/17/18 [History] Sotalol HCl 80 mg [Betapace 80 MG] 80 mg PO DAILY 09/17/18 [History] Fluticasone/Umeclidin/Vilanter [Trelegy Ellipta 100-62.5-25] 1 each IH DAILY 09/15/20 [History] Glipizide Xl 10 mg [Glucotrol Xl 10 MG] 10 mg PO DAILY 09/15/20 [History] Hx Tetanus, Diphtheria Vaccination/Date Given: Yes Hx Influenza Vaccination/Date Given: No Hx Pneumococcal Vaccination/Date Given: No Immunizations Up to Date: No Travel Risk - International Travel Have you traveled outside of the country in past 3 weeks: No - Coronavirus Screening Are you exhibiting any of the following symptoms?: No Close contact with a COVID-19 positive Pt in past 14-21 Days: No - Vaccine Status Have you recieved a Covid-19 vaccination: No - Review of Systems Constitutional: No Symptoms, No Fever, No Chills Eyes: No Symptoms Ears, Nose, & Throat: No Symptoms Respiratory: No Symptoms, No Cough, No Dyspnea Cardiac: No Symptoms, No Chest Pain, No Edema, No Syncope Abdominal/Gastrointestinal: No Symptoms, No Abdominal Pain, No Nausea, No Vomiting, No Diarrhea Genitourinary Symptoms: No Symptoms, No Dysuria Musculoskeletal: No Symptoms, No Back Pain, No Neck Pain Skin: No Symptoms, No Rash Neurological: No Symptoms, No Dizziness, No Focal Weakness, No Sensory Changes Psychological: No Symptoms Endocrine: No Symptoms Hematologic/Lymphatic: No Symptoms Immunological/Allergic: No Symptoms All Other Systems: Reviewed and Negative - Past Medical History Pertinent Past Medical History: Yes Neurological History: No Pertinent History ENT History: No Pertinent History Cardiac History: Arrhythmia, High Cholesterol, Hypertension, Peripheral Vascular Disease Respiratory History: COPD, Emphysema Endocrine Medical History: Diabetes Type II Musculoskeletal History: No Pertinent History GI Medical History: No Pertinent History History: No Pertinent History Psycho-Social History: No Pertinent History Male Reproductive Disorders: No Pertinent History Other Medical History: pilonidal cyst- removed - Past Surgical History Past Surgical History: Yes Neuro Surgical History: No Pertinent History Cardiac: No Pertinent History Respiratory: No Pertinent History Gastrointestinal: No Pertinent History Genitourinary: No Pertinent History Musculoskeletal: Other Male Surgical History: No Pertinent History Other Surgical History: carpal tunnel surgery, tooth extractions, pilonidal cyst removed - Social History Smoking Status: Current every day smoker How long have you smoked: 32 years Exposure to second hand smoke: Yes Alcohol Use: Socially Drug Use: none Patient Lives Alone: No Significant Family History: diabetes, hypertension - Nursing Vital Signs Nursing Vital Signs: Initial Vital Signs Temperature 97.6 F 01/08/22 03:30 Pulse Rate 78 01/08/22 03:30 Respiratory Rate 18 01/08/22 03:30 Blood Pressure 177/102 01/08/22 03:30 O2 Sat by Pulse Oximetry 98 01/08/22 03:30 Pain Scale Pain Intensity 6 - Physical Exam General Appearance: no apparent distress, alert Eyes, Ears, Nose, Throat Exam: normal ENT inspection, moist mucous membranes Neck Exam: normal inspection, non-tender, full range of motion Cardiovascular/Respiratory Exam: chest non-tender, normal breath sounds, regular rate/rhythm, heart sounds normal, no respiratory distress Abdominal Exam: non-tender, soft, No guarding Back Exam: normal inspection, No vertebral tenderness Shoulder Exam: normal inspection, limited ROM (Active range of motion limited due to pain. Some pain with end range passive range of motion), soft tissue tenderness (Palpation and movement of left shoulder reproduces shoulder pain.), No non-tender (Tenderness to palpation over the left shoulder. Overlying soft tissue intact. No signs of trauma.) Elbow/Forearm Exam: normal inspection, non-tender, no evidence of injury, normal ROM Wrist Exam: normal inspection, non-tender, no evidence of injury, normal ROM Hand Exam: normal inspection, non-tender, no evidence of injury, normal ROM Neuro/Tendon Exam: normal sensation, normal motor functions, normal tendon functions Mental Status Exam: alert, oriented x 3, cooperative, No agitated Skin Exam: normal color, warm, dry, No rash SpO2 Interpretation: normal SpO2: 98 O2 Delivery: Room Air - Course Nursing assessment & vital signs reviewed: Yes - Radiology Exams Shoulder X-ray Interpretation: Interpreted by me (No fracture dislocations. No soft tissue abnormalities) Ordered Tests: Active Orders 24 hr Category Date Time Status SHOULDER Stat Exams 01/08/22 Ordered - Progress Progress: improved Progress Note: Patient has multiple medical allergies. Patient allergic to Toradol. Patient declined Tylenol as he states he has Tylenol at home. No active pain at this time. Pain occurs mostly with motion. X-ray negative for fracture d islocations. No soft tissue abnormalities. EKG normal sinus rhythm. Patient has a history of diabetes. EKG performed to rule out cardiac related shoulder pain. Patient referred to orthopedic clinic for shoulder pain and instability and intermittent subluxation. Patient declined a work note. Left upper extremity placed in a shoulder sling for comfort. Patient agrees to follow-up in the orthopedic clinic within 48 hours for evaluation. He voices no other complaints or concerns at this time. Portions of this note were created with voice recognition technology. There may be grammatical, spelling, punctuation or sound alike errors 01/08/22 05:04 Counseled pt/family regarding: diagnosis, need for follow-up, rad results - Departure Departure Disposition: Home Clinical Impression: Shoulder pain, left Condition: Stable Critical Care Time: No Referrals: DENY FOOTE [Primary Care Provider] - Follow up/PCP as directed Additional Instructions: Discharge/Care Plan IMELDAPING ASCENCIO was seen on 01/08/22 in the Emergency Room. The patient was counseled regarding Diagnosis,Lab results, Imaging studies, need for follow up and when to return to the Emergency Room. Prescriptions given: Discharge Note I have spoken with the patient and/or caregivers. I have explained the patient's condition, diagnosis and treatment plan based on the information available to me at this time. I have answered the patient's and/or caregiver's questions and addressed any concerns. The patient and/or caregivers have as good understanding of the patient's diagnosis, condition and treatment plan as can be expected at this point. The vital signs have been stable. The patient's condition is stable and appropriate for discharge from the emergency department. The patient will pursue further outpatient evaluation with the primary care physician or other designated or consulting physician as outlined in the discharge instructions. The patient and/or caregivers are agreeable to this plan of care and follow-up instructions have been explained in detail. The patient and/or caregivers have received these instruction. The patient/and or caregivers are aware that any significant change in condition or worsening of symptoms should prompt an immediate return to this or the closest emergency department or call 911. Outpatient Orders: Ortho Referral Time Frame: 1 Day, Facility: [facility], Location: [facility]
[2022-01-08 05:05] VITALS: BP 127/91
[2022-01-08 05:17] VITALS: PULSE 76; O2SAT 96
--- NOTE | 2022-01-08 08:53 | XRAY ---
Indication: Pain. Comparison: None 3 view left shoulder demonstrates mild AC degenerative arthropathy and minimal levoscoliosis centered at T3. No other bony, articular, or soft tissue abnormalities.
== END 2022-01-08 05:11 | disposition home or self-care (01) ==
LOC: ED 03:24
DX: M25.512 Pain in left shoulder (principal); E78.5 Hyperlipidemia, unspecified; I10 Essential (primary) hypertension; J43.9 Emphysema, unspecified; E11.9 Type 2 diabetes mellitus without complications; I73.9 Peripheral vascular disease, unspecified; Z79.01 Long term (current) use of anticoagulants; Z79.84 Long term (current) use of oral hypoglycemic drugs; Z79.899 Other long term (current) drug therapy; Z72.0 Tobacco use
CPT/HCPCS: 73030; 93005; 99284

== ENCOUNTER 2022-08-17 04:05 | Emergency (ER) | payer OTHER ==
[2022-08-17 05:13] VITALS: BP 138/107; PULSE 90; O2SAT 98
[2022-08-17 05:14] LABS: INFLUENZA A NEGATIVE (NEGATIVE); INFLUENZA B NEGATIVE (NEGATIVE); RESPIRATORY SYNCTIAL VIRUS NEGATIVE (Negative)
[2022-08-17 05:16] LABS: SARS-CoV-2 Xpert Express POSITIVE (NEGATIVE)
--- NOTE | 2022-08-17 05:23 | ERPHSYRPT ---
- History of Present Illness Time Seen by Provider: 08/17/22 04:40 Source: patient Exam Limitations: no limitations Patient Subjective Stated Complaint: pt states that he has been sick with congestion and body aches since tuesday. states he does not knoew if he ever had a fever Triage Nursing Assessment: pt is alert and oriented, states his whole body is aching. has nasal congestion. no fever vitals wnl Physician History: This is a 42-year-old male who has had flulike symptoms for approximately 2 days including nasal congestion, cough, chest congestion and body aches. He is not sure where he could have contracted any illness except at work. He has had no abdominal pain. He has no nausea vomiting or diarrhea. He has no chest pain or significant shortness of breath. He has not had a fever per his report Timing/Duration: day(s) (2) Cough Quality/Degree: mild Possible Cause: no prior episodes Associated Symptoms: cough, muscle aches Allergies/Adverse Reactions: corn Allergy (Mild, Verified 07/12/21 20:09) egg Allergy (Mild, Verified 07/12/21 20:09) mold Allergy (Mild, Verified 07/12/21 20:09) peanut Allergy (Mild, Verified 07/12/21 20:09) soybean Allergy (Mild, Verified 07/12/21 20:09) tomato Allergy (Mild, Verified 07/12/21 20:09) wheat Allergy (Mild, Verified 07/12/21 20:09) shrimp Allergy (Verified 07/12/21 20:09) venom-honey bee Allergy (Verified 07/12/21 20:09) aspirin Adverse Reaction (Intermediate, Verified 07/12/21 20:09) Headache lobster Allergy (Uncoded 07/12/21 20:09) Home Medications: Albuterol Sulfate [Albuterol Sulfate Hfa] 8.5 gm IH Q4H PRN PRN 10/13/16 [History] Rivaroxaban 10 mg Tablet [Xarelto 10 mg Tablet] 20 mg PO DAILY 12/13/16 [History] Metformin HCl 500 mg [Glucophage 500 MG] 250 mg PO BID 05/12/17 [History] Simvastatin 40 mg [Zocor 40 mg] 40 mg PO DAILY 09/17/18 [History] Sotalol HCl 80 mg [Betapace 80 MG] 80 mg PO DAILY 09/17/18 [History] Fluticasone/Umeclidin/Vilanter [Trelegy Ellipta 100-62.5-25] 1 each IH DAILY 09/15/20 [History] Glipizide Xl mg [Glucotrol Xl 10 MG] 10 mg PO DAILY 09/15/20 [History] Hx Tetanus, Diphtheria Vaccination/Date Given: Yes Hx Influenza Vaccination/Date Given: No Hx Pneumococcal Vaccination/Date Given: No Travel Risk - International Travel Have you traveled outside of the country in past 3 weeks: No - Coronavirus Screening Are you exhibiting any of the following symptoms?: Yes Symptoms: Cough: New Onset, Shortness of Breath Close contact with a COVID-19 positive Pt in past 14-21 Days: No - Vaccine Status Have you recieved a Covid-19 vaccination: No - Review of Systems Constitutional: No Symptoms Eyes: No Symptoms Ears, Nose, & Throat: Nose Congestion Respiratory: Cough Cardiac: No Symptoms, Orthopnea Genitourinary Symptoms: No Symptoms Musculoskeletal: Arthralgias, Myalgias Skin: No Symptoms Neurological: No Symptoms Psychological: No Symptoms Endocrine: No Symptoms Hematologic/Lymphatic: No Symptoms Immunological/Allergic: No Symptoms All Other Systems: Reviewed and Negative - Past Medical History Pertinent Past Medical History: Yes Neurological History: No Pertinent History ENT History: No Pertinent History Cardiac History: Arrhythmia, High Cholesterol, Hypertension, Peripheral Vascular Disease Respiratory History: COPD, Emphysema Endocrine Medical History: Diabetes Type II Musculoskeletal History: No Pertinent History GI Medical History: No Pertinent History History: No Pertinent History Psycho-Social History: No Pertinent History Male Reproductive Disorders: No Pertinent History Other Medical History: pilonidal cyst- removed - Past Surgical History Past Surgical History: Yes Neuro Surgical History: No Pertinent History Cardiac: No Pertinent History Respiratory: No Pertinent History Gastrointestinal: No Pertinent History Genitourinary: No Pertinent History Musculoskeletal: Other Male Surgical History: No Pertinent History Other Surgical History: carpal tunnel surgery, tooth extractions, pilonidal cyst removed - Social History Smoking Status: Current every day smoker How long have you smoked: 32 years Exposure to second hand smoke: Yes Alcohol Use: Socially Drug Use: none Patient Lives Alone: No Significant Family History: diabetes, hypertension - Nursing Vital Signs Nursing Vital Signs: Initial Vital Signs Temperature 97.7 F 08/17/22 04:12 Pulse Rate 102 H 08/17/22 04:12 Respiratory Rate 18 08/17/22 04:12 Blood Pressure 136/114 08/17/22 04:12 O2 Sat by Pulse Oximetry 96 08/17/22 04:12 Pain Scale Pain Intensity 5 - Physical Exam General Appearance: no apparent distress, alert, anxiety Eye Exam: PERRL/EOMI, eyes nml inspection Ears, Nose, Throat Exam: normal ENT inspection, moist mucous membranes Neck Exam: normal inspection, non-tender, supple, full range of motion Respiratory Exam: normal breath sounds, lungs clear, airway intact, No chest tenderness, No respiratory distress Cardiovascular Exam: regular rate/rhythm, normal heart sounds, normal peripheral pulses Gastrointestinal/Abdomen Exam: soft, normal bowel sounds, No tenderness Rectal Exam: not done Back Exam: normal inspection, normal range of motion, No CVA tenderness, No vertebral tenderness Extremity Exam: normal inspection, normal range of motion, pelvis stable Neurologic Exam: alert, oriented x 3, cooperative, 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, normal mood/affect, nml cerebellar function, nml station & gait, sensation nml Skin Exam: normal color, warm, dry Lymphatic Exam: No adenopathy SpO2 Interpretation: normal SpO2: 98 O2 Delivery: Room Air - Course Nursing assessment & vital signs reviewed: Yes Lab/Rad Data: Laboratory Results 08/17/22 Range/Units 04:30 Influenza Type A Ag NEGATIVE (NEGATIVE) Influenza Type B Ag NEGATIVE (NEGATIVE) RSV (PCR) NEGATIVE (Negative) SARS-CoV-2 (PCR) POSITIVE A (NEGATIVE) - Progress Progress: unchanged Blood Culture(s) Obtained: No Antibiotics given: No Counseled pt/family regarding: lab results, diagnosis, need for follow-up - Departure Departure Disposition: Home Clinical Impression: COVID-19 virus infection Condition: Stable Critical Care Time: No Referrals: DENY FOOTE [Primary Care Provider] - Follow up/PCP as directed Additional Instructions: Drink plenty of fluids. Follow-up with your primary care physician for further evaluation management. Take your medication as prescribed. Use Tylenol and ibuprofen for fever and pain control after your prednisone and hydrocodone have run out. Monitor your blood sugar closely when taking the prednisone Forms: Work/School Release Form Prescriptions: Hydrocodone/Acetaminophen [Hydrocodone-Acetamn 7.5-325/15] 10 ml PO Q8H PRN PRN #120 ml MDD 30 ml PRN Reason: Cough Prednisone 10 mg [Deltasone 10 mg] 10 mg PO TID #12 tablet
[2022-08-17] MEDS ORDERED: HYDROCODONE-ACETAMIN 2.5-108/5 ML SOLUTION ONE ×2 (05:34→05:36)
[2022-08-17] MEDS ORDERED: DELTASONE 20 MG ONE (05:34)
[2022-08-17] MEDS: HYDROCODONE-ACETAMIN 2.5-108/5 ML SOLUTION PO STA (05:36)
[2022-08-17] MEDS: DELTASONE 20 MG PO ONE (05:37)
== END 2022-08-17 05:52 | disposition home or self-care (01) ==
LOC: ED 04:05
DX: U07.1 COVID-19 (principal); R05.1 Acute cough; R09.81 Nasal congestion; M79.10 Myalgia, unspecified site; E78.5 Hyperlipidemia, unspecified; I10 Essential (primary) hypertension; J43.9 Emphysema, unspecified; E11.9 Type 2 diabetes mellitus without complications; Z72.0 Tobacco use; Z79.01 Long term (current) use of anticoagulants; Z79.84 Long term (current) use of oral hypoglycemic drugs; Z79.891 Long term (current) use of opiate analgesic; Z79.52 Long term (current) use of systemic steroids; Z79.899 Other long term (current) drug therapy; Z28.310 Unvaccinated for COVID-19
CPT/HCPCS: 0241U; 99283; A9270-GY

== ENCOUNTER 2023-05-22 17:23 | Emergency (ER) | payer OTHER ==
[2023-05-22 17:41] VITALS: TEMP 97.1
--- NOTE | 2023-05-22 17:43 | ERPHSYRPT ---
- History of Present Illness Hx Tetanus, Diphtheria Vaccination/Date Given: Yes Hx Influenza Vaccination/Date Given: No Hx Pneumococcal Vaccination/Date Given: No <NAYELI LOCKETT - Last Filed: 05/22/23 17:42> - History of Present Illness Source: patient Exam Limitations: no limitations Occurred: this morning Method of Injury: unknown Quality: other (only with moving shoulder, ) Severity of Pain-Max: moderate Severity of Pain-Current: moderate Extremities Pain Location: shoulder: left Modifying Factors: Improves With: immobilization, movement Associated Symptoms: none <WAYNE NORMAN - Last Filed: 05/22/23 22:55> - History of Present Illness Time Seen by Provider: 05/22/23 17:42 Physician History: Pt reports Hx of recurring dislocations left shoulder in past and awakened today with pain - no known trauma. Has pain in all directions of motion passive ricardo forward flexion. about 1 week ago he was on his side pulling a tire and has pain right lower ribs which still is tender but again no direct trauma. He has no CP oir SOB. He has know Afib for which he takes blood thinner which ran out 2 weeks ago, and we discussed risks/benefits of restarting to prevent complications and he agrees and will f/u PMD this week to carry on after restarting today. Abd soft nontender without peritoneal signs or masses or distension. Discussed risk/benefit of CT ( including rad risk) CBC, EKG ( to confirm afib), UA for right lower ribs looking for hematuria) and pt wishes to proceed, Results discussed with Pt. (WAYNE NORMAN) Allergies/Adverse Reactions: corn Allergy (Mild, Verified 05/22/23 17:32) egg Allergy (Mild, Verified 05/22/23 17:32) mold Allergy (Mild, Verified 05/22/23 17:32) peanut Allergy (Mild, Verified 05/22/23 17:32) soybean Allergy (Mild, Verified 05/22/23 17:32) tomato Allergy (Mild, Verified 05/22/23 17:32) wheat Allergy (Mild, Verified 05/22/23 17:32) shrimp Allergy (Verified 05/22/23 17:32) venom-honey bee Allergy (Verified 05/22/23 17:32) aspirin Adverse Reaction (Intermediate, Verified 05/22/23 17:32) Headache lobster Allergy (Uncoded 05/22/23 17:32) Home Medications: Albuterol Sulfate [Albuterol Sulfate Hfa] 8.5 gm IH Q4H PRN PRN 10/13/16 [History] Rivaroxaban 10 mg Tablet [Xarelto 10 mg Tablet] 20 mg PO DAILY 12/13/16 [History] Metformin HCl 500 mg [Glucophage 500 MG] 250 mg PO BID 05/12/17 [History] Simvastatin 40 mg [Zocor 40 mg] 40 mg PO DAILY 09/17/18 [History] Sotalol HCl 80 mg [Betapace 80 MG] 80 mg PO DAILY 09/17/18 [History] Fluticasone/Umeclidin/Vilanter [Trelegy Ellipta 100-62.5-25] 1 each IH DAILY 09/15/20 [History] Glipizide Xl mg [Glucotrol Xl 10 MG] 10 mg PO DAILY 09/15/20 [History] Travel Risk - Vaccine Status Have you recieved a Covid-19 vaccination: No <NAYELI LOCKETT - Last Filed: 05/22/23 17:42> - Review of Systems Constitutional: No Fever, No Chills Eyes: No Symptoms Ears, Nose, & Throat: No Symptoms Respiratory: No Cough, No Dyspnea Cardiac: No Chest Pain, No Edema, No Syncope Abdominal/Gastrointestinal: No Abdominal Pain, No Nausea, No Vomiting, No Diarrhea Genitourinary Symptoms: No Dysuria Musculoskeletal: Injury, Joint Pain, No Back Pain, No Neck Pain, No Fall Skin: No Symptoms, No Rash Neurological: No Symptoms, No Dizziness, No Focal Weakness, No Sensory Changes Psychological: No Symptoms Endocrine: No Symptoms Hematologic/Lymphatic: No Symptoms Immunological/Allergic: No Symptoms All Other Systems: Reviewed and Negative <WAYNE NORMAN - Last Filed: 05/22/23 22:55> - Past Medical History Pertinent Past Medical History: Yes Neurological History: No Pertinent History ENT History: No Pertinent History Cardiac History: Arrhythmia, High Cholesterol, Hypertension, Peripheral Vascular Disease Respiratory History: COPD, Emphysema Endocrine Medical History: Diabetes Type II Musculoskeletal History: No Pertinent History GI Medical History: No Pertinent History History: No Pertinent History Psycho-Social History: No Pertinent History Male Reproductive Disorders: No Pertinent History Other Medical History: pilonidal cyst- removed - Past Surgical History Past Surgical History: Yes Neuro Surgical History: No Pertinent History Cardiac: No Pertinent History Respiratory: No Pertinent History Gastrointestinal: No Pertinent History Genitourinary: No Pertinent History Musculoskeletal: Other Male Surgical History: No Pertinent History Other Surgical History: carpal tunnel surgery, tooth extractions, pilonidal cyst removed - Social History Smoking Status: Current every day smoker How long have you smoked: 32 years Exposure to second hand smoke: Yes Alcohol Use: Socially Drug Use: none Patient Lives Alone: No Significant Family History: diabetes, hypertension <NAYELI LOCKETT - Last Filed: 05/22/23 17:42> - Past Medical History Pertinent Past Medical History: Yes <WAYNE NORMAN - Last Filed: 05/22/23 22:55> - Physical Exam SpO2: 95 <NAYELI LOCKETT - Last Filed: 05/22/23 17:42> - Physical Exam General Appearance: no apparent distress, alert Eyes, Ears, Nose, Throat Exam: moist mucous membranes Neck Exam: non-tender, supple Cardiovascular/Respiratory Exam: chest non-tender, normal breath sounds, regular rate/rhythm, no respiratory distress Abdominal Exam: non-tender, No guarding Back Exam: normal inspection, No vertebral tenderness Shoulder Exam: asymmetry, bone tenderness, limited ROM, soft tissue tenderness Elbow/Forearm Exam: normal inspection, non-tender, no evidence of injury, normal ROM Wrist Exam: normal inspection, non-tender, no evidence of injury, normal ROM Hand Exam: normal inspection, non-tender, no evidence of injury, normal ROM DTR - Upper Extremity Exam: bicep (R): 2+, bicep (L): 2+, tricep (R): 2+, tricep (L): 2+ Neuro/Tendon Exam: normal sensation, normal motor functions, normal tendon functions, no evidence tendon injury Mental Status Exam: alert, oriented x 3, cooperative Skin Exam: normal color, warm, dry SpO2 Interpretation: normal O2 Delivery: Room Air <WAYNE NORMAN - Last Filed: 05/22/23 22:55> - Nursing Vital Signs Nursing Vital Signs: Initial Vital Signs Temperature 97.1 F 05/22/23 17:34 Pulse Rate 90 05/22/23 17:34 Respiratory Rate 18 05/22/23 17:34 Blood Pressure 192/95 05/22/23 17:34 O2 Sat by Pulse Oximetry 95 05/22/23 17:34 Pain Scale Pain Intensity 7 - Course Nursing assessment & vital signs reviewed: Yes - CT Exams Left Upper Extremity CT Interpretation: Tele-radiologist Report, No Subluxation, Other (rotator cuff dx. left lung nodules) <WAYNE NORMAN - Last Filed: 05/22/23 22:55> Ordered Tests: Active Orders 24 hr Category Date Time Status EKG-ER Only STAT Care 05/22/23 18:20 Active UPPER EXTREMITY W/O CONTRAST [CT] Stat Exams 05/22/23 18:28 Completed CBC W DIFF Stat Lab 05/22/23 18:40 Completed POCT GLUCOSE Stat Lab 05/22/23 22:17 Completed UA W/RFX UR CULTURE Stat Lab 05/22/23 19:32 Completed Medication Summary Discontinued Medications Generic Name Dose Route Start Last Admin Trade Name Claudio PRN Reason Stop Dose Admin Acetaminophen 500 mg 05/22/23 18:07 05/22/23 18:14 Acetaminophen 500 Mg Tablet PO 05/22/23 18:08 500 mg STAT STA Administration Acetaminophen Confirm 05/22/23 18:13 Acetaminophen 500 Mg Tablet Administered 05/22/23 18:14 Dose 500 mg .ROUTE .STK-MED ONE Ketorolac Tromethamine 60 mg 05/22/23 22:08 05/22/23 22:14 Ketorolac Tromethamine 30 Mg/Ml Inj IM 05/22/23 22:09 60 mg STAT ONE Administration Ketorolac Tromethamine Confirm 05/22/23 22:14 Ketorolac Tromethamine 30 Mg/Ml Inj Administered 05/22/23 22:15 Dose 30 mg .ROUTE .STK-MED ONE Ketorolac Tromethamine Confirm 05/22/23 22:15 Ketorolac Tromethamine 30 Mg/Ml Inj Administered 05/22/23 22:16 Dose 30 mg .ROUTE .STK-MED ONE Lab/Rad Data: Laboratory Result Diagrams 05/22/23 18:40 Laboratory Results 05/22/23 05/22/23 05/22/23 Range/Units 22:17 19:32 18:40 WBC 7.5 (4.0-10.5) x10^3/uL RBC 5.16 (4.1-5.6) x10^6/uL Hgb 16.2 (12.5-18.0) g/dL Hct 47.3 (42-50) % MCV 91.7 (78-100) fL MCH 31.4 (26-32) pg MCHC 34.2 (32-36) g/dL RDW 13.2 (11.5-14.0) % Plt Count 164 (150-450) x10^3/uL MPV 9.0 (7.5-11.0) fL Gran % 45.8 (36.0-66.0) % Immature Gran % (Auto) 0.3 (0.00-0.4) % Nucleat RBC Rel Count 0.0 (0.00-0.1) % Eos # (Auto) 0.35 (0-0.5) x10^3/uL Immature Gran # (Auto) 0.02 (0.00-0.03) x10^3u/L Absolute Lymphs (auto) 3.07 (1.0-4.6) x10^3/uL Absolute Monos (auto) 0.58 (0.0-1.3) x10^3/uL Absolute Nucleated RBC 0.00 (0.00-0.01) x10^3u/L Lymphocytes % 40.8 (24.0-44.0) % Monocytes % 7.7 (0.0-12.0) % Eosinophils % 4.6 (0.00-5.0) % Basophils % 0.8 (0.0-0.4) % Absolute Granulocytes 3.45 (1.4-6.9) x10^3/uL Basophils # 0.06 (0-0.4) x10^3/uL POC Glucometer 151 H (74 to 106) mg/dL Urine Color Yellow (Yellow) Urine Appearance Clear (Clear) Urine pH 5.0 (4.6-8.0) Ur Specific [place] >=1.030 A (1.005-1.030) Urine Protein Negative (Negative) Urine Glucose (UA) >=1000 A (Negative) mg/dL Urine Ketones Negative (Negative) Urine Blood Negative (Negative) Urine Nitrite Negative (Negative) Urine Bilirubin Negative (Negative) Urine Urobilinogen 1.0 A (0.2) mg/dL Ur Leukocyte Esterase Negative (Negative) U Hyaline Cast (Auto) NONE SEEN (0-2) /LPF Urine Microscopic RBC 0-2 (0-5) /HPF Urine Microscopic WBC 0-2 (0-5) /HPF Ur Epithelial Cells None Seen (None Seen) /HPF Urine Bacteria None Seen (None Seen) /HPF Urine Culture Reflexed NO (NO) - Progress Progress: improved, re-examined Counseled pt/family regarding: lab results, diagnosis, need for follow-up, rad results <WAYNE NORMAN - Last Filed: 05/22/23 22:55> - Progress Progress Note: 05/22/23 22:08 pt advised of pulmonary nodules and to seek evaluation. discussed risks/benefits or toradol and steroids and pt wishes to proceed ( he is advised to monitor glucose when on the steroids) he is no longer in Afib and we discussed waiting to restart meds since he has no symptoms but also discussed risks if it recurs meantime and he wishes to wait and see his DrKelly to decide and may have further workup to guide that. He has the capacity to make this choice and realizes a cva could happen anytime if it recurs meantime. . 05/22/23 22:46 glucose is 150s so not too bad. (WAYNE NORMAN) Medical Desision Making - Independent Historian Additional History obtained from: Family - Discussion of managment Reviewed:: Test results, Need for additional workup - Diagnostic Testing Diagnostic test were ordered, analyzed, and reviewed by me: Yes Radiological Interpretation: Teleradiologist Report - Risk of complications The pt has a mod risk of morbidity or mortality based on: Need for prescription drug management, Diagnosis or treatment limited by SDOH (pt recently lost his Dr Kelly due to insurance problem/ hospital priviliging/ insurance changes) <WAYNE NORMAN - Last Filed: 05/22/23 22:55> <NAYELI LOCKETT - Last Filed: 05/22/23 17:42> - Departure Departure Disposition: Home Critical Care Time: No <WAYNE NORMAN - Last Filed: 05/22/23 22:55> - Departure Clinical Impression: Nodule of left lung, Rotator cuff arthropathy of left shoulder, Pulmonary nodules, Contusion of rib on right side Condition: Good Referrals: DENY FOOTE [ACTIVE STAFF] - Follow up/PCP as directed Instructions: Shoulder Tendinopathy (DC), Multiple pulmonary nodules Additional Instructions: you have some lung nodules that need to be evaluated with your Dr. watch your sugar closely as the steroids may aggravate it. Also followup with your Dr. for your ribs for furhter evluation Although the EKG did not show afib, You may still be at risk for afib and stroke as a result so see your Dr. to determine if you still need the blood thinner. He or she may do further heart workup and monitoring to determine whether you still need further treatment. Prescriptions: Methylprednisolone Packet [Medrol Dosepack] 4 mg PO UD #30 packet
[2023-05-22] MEDS ORDERED: TYLENOL EXTRA STRENGTH 500 MG PO STA (18:07)
[2023-05-22] MEDS ORDERED: TYLENOL EXTRA STRENGTH 500 MG ONE (18:13)
[2023-05-22 18:44] LABS: Absolute Neutrophil Ct (ANC) 3.45 x10^3/uL (1.4-6.9); BASOPHIL % 0.8 % (0.0-0.4); Basophil (Absolute #) 0.06 x10^3/uL (0-0.4); Eosinophil % 4.6 % (0.00-5.0); Eosinophil (Absolute #) 0.35 x10^3/uL (0-0.5); Hematocrit 47.3 % (42-50); Hemoglobin 16.2 g/dL (12.5-18.0); IMMATURE GRAN # 0.02 x10^3u/L (0.00-0.03); IMMATURE GRAN % 0.3 % (0.00-0.4); Lymphocyte (Absolute #) 3.07 x10^3/uL (1.0-4.6); Lymphocytes % 40.8 % (24.0-44.0); Mean Cell Volume 91.7 fL (78-100); Mean Corpuscular Hemoglobin 31.4 pg (26-32); Mean Corpuscular Hgb Concent. 34.2 g/dL (32-36); Monocyte (Absolute #) 0.58 x10^3/uL (0.0-1.3); Monocytes % 7.7 % (0.0-12.0); Neutrophil % 45.8 % (36.0-66.0); Platelet Count 164 x10^3/uL (150-450); Red Blood Count 5.16 x10^6/uL (4.1-5.6); Red Cell Distribution Width 13.2 % (11.5-14.0); White Blood Count 7.5 x10^3/uL (4.0-10.5)
[2023-05-22 19:56] LABS: Appearance Clear (Clear); Bacteria None Seen /HPF (None Seen); Bilirubin Negative (Negative); Blood Negative (Negative); Epithelial Cells None Seen /HPF (None Seen); Glucose, Urine >=1000 mg/dL (Negative); Hyaline Casts NONE SEEN /LPF (0-2); Ketones Negative (Negative); Leukocyte Esterase Negative (Negative); Nitrite Negative (Negative); Protein,Urine Dip Negative (Negative); RBC 0-2 /HPF (0-5); Specific Gravity >=1.030 (1.005-1.030); WBC 0-2 /HPF (0-5)
[2023-05-22 19:59] LABS: ADD URINE CULTURE? NO (NO)
[2023-05-22 21:03] VITALS: BP 124/89; PULSE 85; RESP 16; O2SAT 97
--- NOTE | 2023-05-22 21:24 | XRAY ---
CLINICAL HISTORY:Hx dislocation left shoulder recur COMPARISON:MRI of left shoulder dated 01/18/2022. TECHNIQUE:Thin axial images of the left shoulder joint were obtained with sagittal and coronal reconstruction. FINDINGS: There are small calcifications overlying the supraspinatus tendon, at its insertion. A tiny soft tissue calcification is seen along the anteromedial aspect of the proximal shaft of the humerus. A tiny calcification within the humeral head, likely bone island. There is a narrowing of the acromioclavicular joint space with sclerosis and subchondral cysts along the joints. The rest of the visualized bones; the scapula, clavicle, and humerus reveal normal appearance. No evidence of obvious fracture. The glenohumeral joint space is normal. No evidence of subluxation or dislocation. No evidence of CT appreciable joint effusion or bursitis. The rest of the rotator cuff tendons are unremarkable. There are 7.8 mm and 6.2 mm solid pulmonary nodules and a 2.9 mm calcified nodule in the apicoposterior segment of the left upper lobe. IMPRESSION: 1. 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 2. Tiny soft tissue calcification along the anteromedial aspect of the proximal shaft of the humerus. 3. Osteoarthritic changes at the AC joint. 4. No dislocation at the time of the study. 5. Incidental findings of left pulmonary nodules. Electronically Signed by: Octaviano Ayala MD. (05/22/2023 20:22:44 DIRECTOR MUSIC)
[2023-05-22] MEDS ORDERED: TORAdol 30 mg Injection IM ONE (22:08)
[2023-05-22] MEDS ORDERED: TORAdol 30 mg Injection ONE ×2 (22:14→22:15)
[2023-05-22] MEDS ORDERED: DELTASONE 20 MG PO ONE (22:51)
[2023-05-22] MEDS ORDERED: DELTASONE 20 MG ONE (23:03)
== END 2023-05-22 23:18 | disposition home or self-care (01) ==
LOC: ED 17:23
DX: R91.1 Solitary pulmonary nodule (principal); M75.102 Unspecified rotator cuff tear or rupture of left shoulder, not specified as traumatic; R91.8 Other nonspecific abnormal finding of lung field; S20.211A Contusion of right front wall of thorax, initial encounter; E78.5 Hyperlipidemia, unspecified; I10 Essential (primary) hypertension; E11.9 Type 2 diabetes mellitus without complications; Z79.01 Long term (current) use of anticoagulants; Z79.84 Long term (current) use of oral hypoglycemic drugs; Z79.899 Other long term (current) drug therapy; Z79.52 Long term (current) use of systemic steroids; Z28.310 Unvaccinated for COVID-19; Z72.0 Tobacco use; Z75.3 Unavailability and inaccessibility of health-care facilities
CPT/HCPCS: 36415; 73200; 81001; 82947; 85025; 93005; 96372; 99284; J1885; A9270-GY